=== PATIENT | female | born 1975 | race Caucasian/White ===

== ENCOUNTER 2016-08-24 11:45 | Emergency (ER) | payer OTHER ==
[2016-08-24] MEDS ORDERED: Fluticasone NASAL SPRAY 50MCG* 16 gm SPRAY BTL BOTH NARES ONE (12:11)
--- NOTE | 2016-08-24 12:27 | ED ---
Throat Pain/Nasal Congestion - HPI Summary HPI Summary: 41F presents with intermittent red, itchy eyes for a week. She states sometimes she feels like there is a grain of sand in her eyes. She states she has a history of allergic rhinitis. She states she has these symptoms every year in the spring. She does not wear contacts. She denies getting anything in his eye. She admits to sinus congestion. She took Benadryl twice over the past week. She denies any change in vision or vision loss. - History of Current Complaint Chief Complaint: EDGeneral Time Seen by Provider: 08/24/16 11:59 - Allergies/Home Medications Allergies/Adverse Reactions: Allergies Allergy/AdvReac Type Severity Reaction Status Date / Time No Known Allergies Allergy Verified 03/13/15 11:08 PMH/Surg Hx/FS Hx/Imm Hx Endocrine/Hematology History: Denies: Hx Anticoagulant Therapy, Hx Blood Disorders, Hx Diabetes, Hx Thyroid Disease, Hx Anemia, Hx Unexplained Bleeding Cardiovascular History: Reports: Other Cardiovascular Problems/Disorders - tachycardia Denies: Hx Aneurysm, Hx Angina, Hx Angioplasty, Hx Auto Implanted Cardiovert Defib, Hx Cardiac Arrest, Hx Cardiomegaly, Hx Congenital Heart Disease, Hx Congestive Heart Failure, Hx Coronary Artery Disease, Hx Deep Vein Thrombosis, Hx Embolism, Hx Hypercholesterolemia, Hx Hypotension, Hx Hypertension, Hx Pacemaker/ICD, Hx Peripheral Vascular Disease, Hx Rheumatic Fever, Hx Syncope, Hx Valvular Heart Disease Respiratory History: Reports: Hx Chronic Bronchitis, Hx Pneumonia Denies: Hx Asthma, Hx Pulmonary Edema, Hx Pulmonary Embolism, Hx Sleep Apnea GI History: Denies: Hx Cirrhosis, Hx Crohn's Disease, Hx Gastroesophageal Reflux Disease , Hx Gastrointestinal Bleed, Hx Hiatal Hernia, Hx Irritable Bowel, Hx Jaundice, Hx Ileostomy, Hx Pyloric Stenosis, Hx Ulcer, Other GI Disorders History: Denies: Hx Acute Renal Failure, Hx Benign Prostatic Hyperplasia, Hx Chronic Renal Failure, Hx Dialysis, Hx Kidney Infection, Hx Kidney Stones, Other Problems/Disorders Musculoskeletal History: Reports: Hx Gout Denies: Hx Arthritis, Hx Bursitis, Hx Tendonitis, Other Musculoskeletal History Sensory History: Denies: Hx Cataracts, Hx Contacts or Glasses, Hx Eye Injury, Hx Eye Prosthesis, Hx Glaucoma, Hx Legally Blind, Hx Macular Degeneration, Hx Vision Problem, Hx Deafness, Hx Hearing Aid, Hx Hearing Problem, Other Sensory Impairments Opthamlomology History: Denies: Hx Cataracts, Hx Contacts or Glasses, Hx Eye Injury, Hx Eye Prosthesis, Hx Glaucoma, Hx Legally Blind, Hx Macular Degeneration, Hx Vision Problem, Other Sensory Impairments Neurological History: Denies: Hx Dementia, Hx Developmental Delay, Hx Headaches, Hx Migraine, Hx Nerve Disease, Hx Seizures, Hx Spinal Cord Injury, Hx Transient Ischemic Attacks (TIA), Other Neuro Impairments/Disorders Psychiatric History: Reports: Hx Anxiety Denies: Hx Attention Deficit Hyperactivity Disorder, Hx Eating Disorder, Hx Depression, Hx Panic Disorder, Hx Post Traumatic Stress Disorder, Hx Inpatient Treatment, Hx Community Mental Health Tx, Hx Schizophrenia, Hx Bipolar Disorder , Hx Suicide Attempt, Hx of Violent Episodes Against Others, Hx Substance Abuse - Cancer History Hx Chemotherapy: No - Surgical History Surgery Procedure, Year, and Place: CHOLECYSTECTOMY MAR 2015 Hx Anesthesia Reactions: No Infectious Disease History: Denies: Hx Hepatitis, Traveled Outside the [place] in Last 30 Days - Family History Known Family History: Positive: Other - Anesthesia reaction - Social History Alcohol Use: None Substance Use Type: Reports: None Smoking Status (MU): Never Smoked Tobacco Review of Systems Negative: Fever Positive: Erythema Positive: Nasal Discharge. Negative: Sore Throat Negative: Chest Pain Negative: Shortness Of Breath All Other Systems Reviewed And Are Negative: Yes Physical Exam Triage Information Reviewed: Yes Vital Signs On Initial Exam: Initial Vitals Temp Pulse Resp BP Pulse Ox 97.4 F 84 16 152/90 99 08/24/16 11:47 08/24/16 11:47 08/24/16 11:47 08/24/16 11:47 08/24/16 11:47 Vital Signs Reviewed: Yes Appearance: Positive: Well-Appearing Skin: Positive: Warm, Dry Head/Face: Positive: Normal Head/Face Inspection Eyes: Positive: EOMI, BASSAM, Conjunctiva Inflammed, Other: - allergic shiners present under eyes. Negative: Discharge ENT: Positive: Normal ENT inspection, Pharynx normal, Nasal congestion, Nasal drainage, TMs normal Respiratory/Lung Sounds: Positive: Clear to Auscultation, Breath Sounds Present Cardiovascular: Positive: Normal, RRR Diagnostics - Vital Signs Vital Signs Temp Pulse Resp BP Pulse Ox 08/24/16 11:55 97.4 F 84 16 152/90 99 08/24/16 11:47 97.4 F 84 16 152/90 99 - Laboratory Lab Statement: Any lab studies that have been ordered have been reviewed, and results considered in the medical decision making process. EENT Course/Dx - Course Course Of Treatment: 41F presents with intermittent red, watery, itchy eyes that gets every year around this time due to allergies. also admits to nasal congestion. denies any foreign body or trauma. denies any visual changes, no one else similiar symptoms. states only water discharge no yellow or copious discharge. due not suspect bacterial conjunctivits given history. did not do flourescien due to no trauma to area. will treat as allergy, gave flonase and script for lastacaft. told to follow up with primary. patient understands and agrees with plan - Differential Diagnoses Differential Diagnoses: Allergic Rhinitis, Conjunctivitis, Corneal Abrasion - Diagnoses Provider Diagnoses: Allergic conjunctivitis of both eyes Discharge - Discharge Plan Condition: Good Disposition: HOME Prescriptions: Alcaftadine 0.25% OPHTH(NF) [Lastacaft 0.25% OPHTH(NF)] 1 drop BOTH EYES DAILY # 1 [email or web address] Patient Education Materials: Allergic Rhinitis (ED) Referrals: Yoandy Aquino MD [Primary Care Provider] - Additional Instructions: Take antihistamine once a day Take Flonase one spray each nostril twice a day Place antihistamine drops in eye once a day Follow up with primary within 7 days Return to ED if develop any new or worsening symptoms
[2016-08-24 13:01] VITALS: BP 151/99
== END 2016-08-24 12:57 | disposition home or self-care (01) ==
LOC: ED 11:45
DX: H10.13 Acute atopic conjunctivitis, bilateral (principal); L53.9 Erythematous condition, unspecified
CPT/HCPCS: 87070; 87205; 99282

== ENCOUNTER 2016-09-26 16:40 | Emergency (ER) | payer OTHER ==
[2016-09-26 16:43] VITALS: BP 154/93
--- NOTE | 2016-09-26 17:20 | ED ---
Throat Pain/Nasal Congestion - HPI Summary HPI Summary: 41F presents with ear pain, sore throat, and sinus congestion for day. She denies any cough, chest pain, SOB, and fever. Her daughter has an cold too. She states she feels a lot of pressure in her ears with the left worst than right. She denies any history of ear infections. She has been taking OTC cold medication. - History of Current Complaint Chief Complaint: EDThroatPain Time Seen by Provider: 09/26/16 16:49 - Allergies/Home Medications Allergies/Adverse Reactions: Allergies Allergy/AdvReac Type Severity Reaction Status Date / Time No Known Allergies Allergy Verified 03/13/15 11:08 PMH/Surg Hx/FS Hx/Imm Hx Endocrine/Hematology History: Denies: Hx Anticoagulant Therapy, Hx Blood Disorders, Hx Diabetes, Hx Thyroid Disease, Hx Anemia, Hx Unexplained Bleeding Cardiovascular History: Reports: Other Cardiovascular Problems/Disorders - tachycardia Denies: Hx Aneurysm, Hx Angina, Hx Angioplasty, Hx Auto Implanted Cardiovert Defib, Hx Cardiac Arrest, Hx Cardiomegaly, Hx Congenital Heart Disease, Hx Congestive Heart Failure, Hx Coronary Artery Disease, Hx Deep Vein Thrombosis, Hx Embolism, Hx Hypercholesterolemia, Hx Hypotension, Hx Hypertension, Hx Pacemaker/ICD, Hx Peripheral Vascular Disease, Hx Rheumatic Fever, Hx Syncope, Hx Valvular Heart Disease Respiratory History: Reports: Hx Chronic Bronchitis, Hx Pneumonia Denies: Hx Asthma, Hx Pulmonary Edema, Hx Pulmonary Embolism, Hx Sleep Apnea GI History: Denies: Hx Cirrhosis, Hx Crohn's Disease, Hx Gastroesophageal Reflux Disease , Hx Gastrointestinal Bleed, Hx Hiatal Hernia, Hx Irritable Bowel, Hx Jaundice, Hx Ileostomy, Hx Pyloric Stenosis, Hx Ulcer, Other GI Disorders History: Denies: Hx Acute Renal Failure, Hx Benign Prostatic Hyperplasia, Hx Chronic Renal Failure, Hx Dialysis, Hx Kidney Infection, Hx Kidney Stones, Other Problems/Disorders Musculoskeletal History: Reports: Hx Gout Denies: Hx Arthritis, Hx Bursitis, Hx Tendonitis, Other Musculoskeletal History Sensory History: Denies: Hx Cataracts, Hx Contacts or Glasses, Hx Eye Injury, Hx Eye Prosthesis, Hx Glaucoma, Hx Legally Blind, Hx Macular Degeneration, Hx Vision Problem, Hx Deafness, Hx Hearing Aid, Hx Hearing Problem, Other Sensory Impairments Opthamlomology History: Denies: Hx Cataracts, Hx Contacts or Glasses, Hx Eye Injury, Hx Eye Prosthesis, Hx Glaucoma, Hx Legally Blind, Hx Macular Degeneration, Hx Vision Problem, Other Sensory Impairments Neurological History: Denies: Hx Dementia, Hx Developmental Delay, Hx Headaches, Hx Migraine, Hx Nerve Disease, Hx Seizures, Hx Spinal Cord Injury, Hx Transient Ischemic Attacks (TIA), Other Neuro Impairments/Disorders Psychiatric History: Reports: Hx Anxiety Denies: Hx Attention Deficit Hyperactivity Disorder, Hx Eating Disorder, Hx Depression, Hx Panic Disorder, Hx Post Traumatic Stress Disorder, Hx Inpatient Treatment, Hx Community Mental Health Tx, Hx Schizophrenia, Hx Bipolar Disorder , Hx Suicide Attempt, Hx of Violent Episodes Against Others, Hx Substance Abuse - Cancer History Hx Chemotherapy: No - Surgical History Surgery Procedure, Year, and Place: CHOLECYSTECTOMY MAR 2015 Hx Anesthesia Reactions: No Infectious Disease History: No Infectious Disease History: Denies: Hx Hepatitis, Traveled Outside the [place] in Last 30 Days - Family History Known Family History: Positive: Other - Anesthesia reaction - Social History Alcohol Use: None Substance Use Type: Reports: None Smoking Status (MU): Never Smoked Tobacco Review of Systems Negative: Fever Positive: Sore Throat, Ear Ache, Nasal Discharge Negative: Chest Pain Negative: Shortness Of Breath All Other Systems Reviewed And Are Negative: Yes Physical Exam Triage Information Reviewed: Yes Vital Signs On Initial Exam: Initial Vitals Temp Pulse Resp BP Pulse Ox 98.2 F 93 17 154/93 99 09/26/16 16:41 09/26/16 16:41 09/26/16 16:41 09/26/16 16:41 09/26/16 16:41 Vital Signs Reviewed: Yes Appearance: Positive: Well-Appearing Skin: Positive: Warm, Dry Head/Face: Positive: Normal Head/Face Inspection Eyes: Positive: Normal, EOMI, BASSAM, Conjunctiva Clear ENT: Positive: Normal ENT inspection, Pharynx normal, Nasal congestion, Nasal drainage, TM dull - with fluid behind. Negative: TM bulging, TM red, Tonsillar swelling, Tonsillar exudate, Trismus, Muffled/hoarse voice Neck: Positive: Supple, Nontender, No Lymphadenopathy Respiratory/Lung Sounds: Positive: Clear to Auscultation, Breath Sounds Present Cardiovascular: Positive: Normal, RRR Diagnostics - Vital Signs Vital Signs Temp Pulse Resp BP Pulse Ox 09/26/16 16:41 98.2 F 93 17 154/93 99 - Laboratory Lab Statement: Any lab studies that have been ordered have been reviewed, and results considered in the medical decision making process. EENT Course/Dx - Course Course Of Treatment: 41F presents with sore throat, ear pain, and sinus congestion for a day. daughter had similiar symptoms. denies any fever. on exam no exudate or swelling of tonsils so Centor criteria 1 due to no cough so need to swap. ears dull TM due to serous fluid likely from sinus congestion but no sign of infection. will treat with flonase. patient understands and agrees with plan - Differential Diagnoses Differential Diagnoses: Otitis Externa, Otitis Media, Pharyngitis, URI/ Bronchitis - Diagnoses Provider Diagnoses: Upper respiratory infection Discharge - Discharge Plan Condition: Good Disposition: HOME Prescriptions: Fluticasone NASAL * [Flonase *] 1 spray BOTH NARES DAILY #1 bottle Ibuprofen TAB* [Motrin TAB* 600 MG] 600 mg PO Q6H PRN #20 tab PRN Reason: Pain Magic Mouth Was-DO/MAAL/LIDO* 5 ml SWISH SPIT QID #100 ml Patient Education Materials: Upper Respiratory Infection (ED) Referrals: Yoandy Aquino MD [Primary Care Provider] - Additional Instructions: Magic mouthwash can use 4x a day Can gargle salt water Can use cough drops or products such as cloraseptic spray Use intranasal steroid one spray each nostril twice a day Use saline in the nose for nasal congestion, can also get Sudafed at pharmacy counter for nasal congestion Use humidifier or place warm bowls of water around the room for cough Take Tylenol or ibuprofen for pain every 6 hours Return to ED if develop any new or worsening symptoms
== END 2016-09-26 17:31 | disposition home or self-care (01) ==
LOC: ED 16:40
DX: J06.9 Acute upper respiratory infection, unspecified (principal); H92.09 Otalgia, unspecified ear; J02.9 Acute pharyngitis, unspecified
CPT/HCPCS: 99281

== ENCOUNTER → 2016-10-12 09:33 | Emergency (ER) | payer OTHER ==
[~2016-10-12 09:33] MED LIST: Ibuprofen TAB* 600 MG ONE; Ibuprofen TAB* 600 MG PO ONE
[2016-10-12 10:00] VITALS: BP 155/100
--- NOTE | 2016-10-12 12:36 | ED ---
Throat Pain/Nasal Congestion - HPI Summary HPI Summary: 41 female presents with complaints of b/l ear pain that she states radiates into her throat and mouth that has been ongoing for weeks. Patient also states she does not know if she has a dental infection which may be causing her pain. She denies any recent dental trauma or procedure. She states the pain is in both of her ears. Describes as achey and pressure, "like they have to po"p. She denies any hearing loss. States she was seen at primary care previously for similar symptoms however has not taken any medication for this. Has been using q -tips and putting hydrogen peroxide into ears. Denies fever/chills, cough, sore throat, nausea and vomiting. Does admits to nasal congestion. States she thinks an anitbiotic would make her feel mayra.r - History of Current Complaint Chief Complaint: EDEarPain Time Seen by Provider: 10/12/16 11:50 Hx Obtained From: Patient Onset/Duration: Sudden Onset, Lasting Weeks, Still Present Severity: Moderate Associated Signs And Symptoms: Positive: Nasal Discharge Cough: None - Allergies/Home Medications Allergies/Adverse Reactions: Allergies Allergy/AdvReac Type Severity Reaction Status Date / Time No Known Allergies Allergy Verified 03/13/15 11:08 PMH/Surg Hx/FS Hx/Imm Hx Endocrine/Hematology History: Denies: Hx Anticoagulant Therapy, Hx Blood Disorders, Hx Diabetes, Hx Thyroid Disease, Hx Anemia, Hx Unexplained Bleeding Cardiovascular History: Reports: Other Cardiovascular Problems/Disorders - tachycardia Denies: Hx Aneurysm, Hx Angina, Hx Angioplasty, Hx Auto Implanted Cardiovert Defib, Hx Cardiac Arrest, Hx Cardiomegaly, Hx Congenital Heart Disease, Hx Congestive Heart Failure, Hx Coronary Artery Disease, Hx Deep Vein Thrombosis, Hx Embolism, Hx Hypercholesterolemia, Hx Hypotension, Hx Hypertension, Hx Pacemaker/ICD, Hx Peripheral Vascular Disease, Hx Rheumatic Fever, Hx Syncope, Hx Valvular Heart Disease Respiratory History: Reports: Hx Chronic Bronchitis, Hx Pneumonia Denies: Hx Asthma, Hx Pulmonary Edema, Hx Pulmonary Embolism, Hx Sleep Apnea GI History: Denies: Hx Cirrhosis, Hx Crohn's Disease, Hx Gastroesophageal Reflux Disease , Hx Gastrointestinal Bleed, Hx Hiatal Hernia, Hx Irritable Bowel, Hx Jaundice, Hx Ileostomy, Hx Pyloric Stenosis, Hx Ulcer, Other GI Disorders History: Denies: Hx Acute Renal Failure, Hx Benign Prostatic Hyperplasia, Hx Chronic Renal Failure, Hx Dialysis, Hx Kidney Infection, Hx Kidney Stones, Other Problems/Disorders Musculoskeletal History: Reports: Hx Gout Denies: Hx Arthritis, Hx Bursitis, Hx Tendonitis, Other Musculoskeletal History Sensory History: Denies: Hx Cataracts, Hx Contacts or Glasses, Hx Eye Injury, Hx Eye Prosthesis, Hx Glaucoma, Hx Legally Blind, Hx Macular Degeneration, Hx Vision Problem, Hx Deafness, Hx Hearing Aid, Hx Hearing Problem, Other Sensory Impairments Opthamlomology History: Denies: Hx Cataracts, Hx Contacts or Glasses, Hx Eye Injury, Hx Eye Prosthesis, Hx Glaucoma, Hx Legally Blind, Hx Macular Degeneration, Hx Vision Problem, Other Sensory Impairments Neurological History: Denies: Hx Dementia, Hx Developmental Delay, Hx Headaches, Hx Migraine, Hx Nerve Disease, Hx Seizures, Hx Spinal Cord Injury, Hx Transient Ischemic Attacks (TIA), Other Neuro Impairments/Disorders Psychiatric History: Reports: Hx Anxiety Denies: Hx Attention Deficit Hyperactivity Disorder, Hx Eating Disorder, Hx Depression, Hx Panic Disorder, Hx Post Traumatic Stress Disorder, Hx Inpatient Treatment, Hx Community Mental Health Tx, Hx Schizophrenia, Hx Bipolar Disorder , Hx Suicide Attempt, Hx of Violent Episodes Against Others, Hx Substance Abuse - Cancer History Hx Chemotherapy: No - Surgical History Surgery Procedure, Year, and Place: CHOLECYSTECTOMY MAR 2015 Hx Anesthesia Reactions: No - Immunization History Immunizations Up to Date: Yes Infectious Disease History: Denies: Hx Hepatitis, Traveled Outside the [place] in Last 30 Days - Family History Known Family History: Positive: None, Other - Anesthesia reaction - Social History Alcohol Use: None Substance Use Type: Reports: None Smoking Status (MU): Never Smoked Tobacco Review of Systems Constitutional: Negative Eyes: Negative Positive: Dental Pain, Ear Ache, Nasal Discharge Cardiovascular: Negative Respiratory: Negative Gastrointestinal: Negative Musculoskeletal: Negative Skin: Negative Positive: Headache All Other Systems Reviewed And Are Negative: Yes Physical Exam Triage Information Reviewed: Yes Vital Signs On Initial Exam: Initial Vitals Temp Pulse Resp BP Pulse Ox 98.1 F 89 16 155/100 97 10/12/16 09:57 10/12/16 09:57 10/12/16 09:57 10/12/16 09:57 10/12/16 09:57 patient declined to have BP re-checked. does have HTN, asymptomatic. Vital Signs Reviewed: Yes Appearance: Positive: Well-Appearing - laying on stretcher watching tv in NAD, No Pain Distress, Well-Nourished Skin: Positive: Warm, Skin Color Reflects Adequate Perfusion, Dry Head/Face: Positive: Normal Head/Face Inspection. Negative: Temporal Artery Tenderness, TMJ Tenderness Eyes: Positive: Normal, EOMI, BASSAM, Conjunctiva Clear ENT: Positive: Normal ENT inspection, Hearing grossly normal, Pharynx normal, Nasal congestion, TMs normal - some serous effusion of right ear. Right external auditory canal vesicle noted. EAC b/l otherwise normal, Other - no signs of FB or cerumen impactions in ears b/l. no mastoid tenderness. Negative : Pharyngeal erythema, Nasal drainage, Tonsillar swelling, Tonsillar exudate, Trismus, Muffled/hoarse voice Dental: Positive: Gross Decay/Caries @. Negative: Percussion Tenderness @, Dental Fracture @, Abscess @, Cellulitis @, Cervical Lymphadenopathy Neck: Positive: Supple, Nontender, No Lymphadenopathy Respiratory/Lung Sounds: Positive: Clear to Auscultation, Breath Sounds Present , Decreased Breath Sounds. Negative: Rales, Rhonchi, Stridor, Wheezes Cardiovascular: Positive: Normal, RRR, Pulses are Symmetrical in both Upper and Lower Extremities. Negative: Murmur, Rub Abdomen Description: Positive: Nontender, No Organomegaly, Soft Bowel Sounds: Positive: Present Musculoskeletal: Positive: Normal, Strength/ROM Intact. Negative: Pain @ Neurological: Positive: Normal, Sensory/Motor Intact, Alert, Oriented to Person Place, Time Psychiatric: Positive: Normal, Affect/Mood Appropriate AVPU Assessment: Alert Diagnostics - Vital Signs Vital Signs Temp Pulse Resp BP Pulse Ox 10/12/16 09:57 98.1 F 89 16 155/100 97 - Laboratory Lab Statement: Any lab studies that have been ordered have been reviewed, and results considered in the medical decision making process. EENT Course/Dx - Course Course Of Treatment: due to complaint of symptoms patient will be treated for seasonal allergies and serous effusion of ears. no physical exam findings for bacterial infection, unremarkable. antibiotics would not beneficial at this time. will be given xyzal and told to use flonase and saline rinses. fluids and hot showers. follow up pcp. educated on proper use of q-tips and refrain from hydrogen peroxide in ears - Differential Diagnoses Differential Diagnoses: Allergic Rhinitis, Cerumen Impaction, Dental Abscess, Dental Caries, Mastoiditis, Otitis Externa, Otitis Media, Pharyngitis, Sinusitis , Tonsilitis, URI/Bronchitis - Diagnoses Provider Diagnoses: Seasonal allergies, Chronic otitis media with serous effusion Discharge - Discharge Plan Condition: Stable Disposition: HOME Prescriptions: Levocetirizine Dihydrochloride [Xyzal Allergy 24Hr] 5 mg PO DAILY #30 tab Patient Education Materials: Serous Otitis Media (ED), Allergies (GEN) Referrals: Yoandy Aquino MD [Primary Care Provider] - Additional Instructions: Take Xyzal daily as directed. Recommend taking at bedtime due to making you drowsy. Start using your flonase as directed to help with congestion. Continue ibuprofen for pain and inflammation. Fluids and rest. Stop putting hydrogen peroixde and q-tips into ear canal. If symptoms worsen or do not improve in the next 14 days please seek medical attention. Follow up with PCP.
== END | disposition home or self-care (01) ==
LOC: ED 09:33
DX: H65.20 Chronic serous otitis media, unspecified ear (principal); J30.2 Other seasonal allergic rhinitis
CPT/HCPCS: 99282; A9270-GY

== ENCOUNTER 2016-11-03 18:34 | Emergency (ER) | payer OTHER ==
[2016-11-03 20:25] VITALS: BP 149/115
[2016-11-03] MEDS ORDERED: Ciproflox/Dexameth OTIC.SUSP* 7.5 ML BTL RIGHT EAR SCH (21:00)
--- NOTE | 2016-11-03 22:09 | ED ---
Throat Pain/Nasal Congestion - HPI Summary HPI Summary: Patient presents with one day of cough and congestion, with a sore throat. She has had ear pressure for two weeks that has been evaluated with negative findings. She denies fever, chills, LOUIS, neck pain, or runny nose. No SOB or CP. - History of Current Complaint Chief Complaint: EDGeneral Time Seen by Provider: 11/03/16 18:46 Hx Obtained From: Patient Onset/Duration: Gradual Onset Severity: Mild Associated Signs And Symptoms: Positive: Negative Cough: None - Allergies/Home Medications Allergies/Adverse Reactions: Allergies Allergy/AdvReac Type Severity Reaction Status Date / Time No Known Allergies Allergy Verified 03/13/15 11:08 PMH/Surg Hx/FS Hx/Imm Hx Endocrine/Hematology History: Denies: Hx Anticoagulant Therapy, Hx Blood Disorders, Hx Diabetes, Hx Thyroid Disease, Hx Anemia, Hx Unexplained Bleeding Cardiovascular History: Reports: Other Cardiovascular Problems/Disorders - tachycardia Denies: Hx Aneurysm, Hx Angina, Hx Angioplasty, Hx Auto Implanted Cardiovert Defib, Hx Cardiac Arrest, Hx Cardiomegaly, Hx Congenital Heart Disease, Hx Congestive Heart Failure, Hx Coronary Artery Disease, Hx Deep Vein Thrombosis, Hx Embolism, Hx Hypercholesterolemia, Hx Hypotension, Hx Hypertension, Hx Pacemaker/ICD, Hx Peripheral Vascular Disease, Hx Rheumatic Fever, Hx Syncope, Hx Valvular Heart Disease Respiratory History: Reports: Hx Chronic Bronchitis, Hx Pneumonia Denies: Hx Asthma, Hx Pulmonary Edema, Hx Pulmonary Embolism, Hx Sleep Apnea GI History: Denies: Hx Cirrhosis, Hx Crohn's Disease, Hx Gastroesophageal Reflux Disease , Hx Gastrointestinal Bleed, Hx Hiatal Hernia, Hx Irritable Bowel, Hx Jaundice, Hx Ileostomy, Hx Pyloric Stenosis, Hx Ulcer, Other GI Disorders History: Denies: Hx Acute Renal Failure, Hx Benign Prostatic Hyperplasia, Hx Chronic Renal Failure, Hx Dialysis, Hx Kidney Infection, Hx Kidney Stones, Other Problems/Disorders Musculoskeletal History: Reports: Hx Gout Denies: Hx Arthritis, Hx Bursitis, Hx Tendonitis, Other Musculoskeletal History Sensory History: Denies: Hx Cataracts, Hx Contacts or Glasses, Hx Eye Injury, Hx Eye Prosthesis, Hx Glaucoma, Hx Legally Blind, Hx Macular Degeneration, Hx Vision Problem, Hx Deafness, Hx Hearing Aid, Hx Hearing Problem, Other Sensory Impairments Opthamlomology History: Denies: Hx Cataracts, Hx Contacts or Glasses, Hx Eye Injury, Hx Eye Prosthesis, Hx Glaucoma, Hx Legally Blind, Hx Macular Degeneration, Hx Vision Problem, Other Sensory Impairments Neurological History: Denies: Hx Dementia, Hx Developmental Delay, Hx Headaches, Hx Migraine, Hx Nerve Disease, Hx Seizures, Hx Spinal Cord Injury, Hx Transient Ischemic Attacks (TIA), Other Neuro Impairments/Disorders Psychiatric History: Reports: Hx Anxiety Denies: Hx Attention Deficit Hyperactivity Disorder, Hx Eating Disorder, Hx Depression, Hx Panic Disorder, Hx Post Traumatic Stress Disorder, Hx Inpatient Treatment, Hx Community Mental Health Tx, Hx Schizophrenia, Hx Bipolar Disorder , Hx Suicide Attempt, Hx of Violent Episodes Against Others, Hx Substance Abuse - Cancer History Hx Chemotherapy: No - Surgical History Surgery Procedure, Year, and Place: CHOLECYSTECTOMY MAR 2015 Hx Anesthesia Reactions: No Infectious Disease History: Denies: Hx Hepatitis, Traveled Outside the [place] in Last 30 Days - Family History Known Family History: Positive: None, Other - Anesthesia reaction - Social History Occupation: Unemployed Lives: With Family Alcohol Use: None Substance Use Type: Reports: None Smoking Status (MU): Never Smoked Tobacco Review of Systems Negative: Fever, Chills Positive: Sore Throat, Ear Ache Negative: Chest Pain Positive: Cough. Negative: Shortness Of Breath Negative: Abdominal Pain Negative: Myalgia Negative: Headache All Other Systems Reviewed And Are Negative: Yes Physical Exam Triage Information Reviewed: Yes Vital Signs On Initial Exam: Initial Vitals Temp Pulse Resp BP Pulse Ox 97.0 F 106 20 133/98 97 11/03/16 18:41 11/03/16 18:41 11/03/16 18:41 11/03/16 18:41 11/03/16 18:41 Vital Signs Reviewed: Yes Appearance: Positive: Well-Appearing, No Pain Distress, Obese Skin: Positive: Warm, Skin Color Reflects Adequate Perfusion, Dry, Soft Head/Face: Positive: Normal Head/Face Inspection Eyes: Positive: EOMI, BASSAM, Conjunctiva Clear ENT: Positive: Hearing grossly normal, Pharyngeal erythema, TMs normal - right aural canal erythema. Negative: Tonsillar swelling, Tonsillar exudate, Trismus , Muffled/hoarse voice Neck: Positive: Supple, Nontender, No Lymphadenopathy Respiratory/Lung Sounds: Positive: Clear to Auscultation, Breath Sounds Present Cardiovascular: Positive: RRR Musculoskeletal: Negative: Edema Left, Edema Right Neurological: Positive: Sensory/Motor Intact, Alert, Oriented to Person Place, Time, NV Bundle Intact Distally, Normal Gait Psychiatric: Positive: Affect/Mood Appropriate AVPU Assessment: Alert Diagnostics - Vital Signs Vital Signs Temp Pulse Resp BP Pulse Ox 11/03/16 20:24 98.8 F 103 149/115 11/03/16 18:43 97.0 F 106 20 133/98 100 11/03/16 18:41 97.0 F 106 20 133/98 97 - Laboratory Lab Results: Lab Results 11/03/16 Range/Units 18:34 Group A Strep Rapid Negative (Negative) Lab Statement: Any lab studies that have been ordered have been reviewed, and results considered in the medical decision making process. EENT Course/Dx - Differential Diagnoses Differential Diagnoses: Abrasion, Barotrauma, Foreign Body, Otitis Externa, Otitis Media, Perforated TM, Pharyngitis - Diagnoses Provider Diagnoses: Otitis externa Discharge - Discharge Plan Condition: Stable Disposition: HOME Patient Education Materials: Otitis Externa (ED) Referrals: Yoandy Aquino MD [Primary Care Provider] - Additional Instructions: Please use the drops provided for the next 8 days. Follow up with your primary care provider if symptoms persist.
== END 2016-11-03 20:24 | disposition home or self-care (01) ==
LOC: ED 18:34
DX: H60.90 Unspecified otitis externa, unspecified ear (principal); R06.02 Shortness of breath; H92.09 Otalgia, unspecified ear
CPT/HCPCS: 87651; 99282; A9270-GY

== ENCOUNTER 2016-11-15 14:47 | Emergency (ER) | payer OTHER ==
[2016-11-15 14:56] VITALS: BP 145/110
--- NOTE | 2016-11-15 16:24 | RAD ---
HISTORY: Right knee pain, trauma COMPARISONS: March 09, 2016 VIEWS: 4, Frontal, lateral, axial, and oblique views of the right knee FINDINGS: BONE DENSITY: Normal. BONES: There is no displaced fracture. JOINTS: There is mild tricompartmental osteoarthritis. There is a small suprapatellar joint effusion. There is no arthrosis. ALIGNMENT: There is no dislocation. SOFT TISSUES: Unremarkable. OTHER FINDINGS: None. IMPRESSION: MILD OSTEOARTHRITIS WITH A SMALL JOINT EFFUSION. NO ACUTE OSSEOUS INJURY. IF SYMPTOMS PERSIST, RECOMMEND REPEAT IMAGING
--- NOTE | 2016-11-15 16:50 | ED ---
Lower Extremity - HPI Summary HPI Summary: Patient presents to ED with right knee pain /10 and does not radiate after tripping on a step and "twisting" the knee 2 days ago. She is ambulating but with pain. Worsening pain on the lateral side of the right knee without numbness, tingling, temperature or color changes to the area. Denies other injuries or previous injury to the area. She notes to laxity through the joint. Small amount of swelling over the lateral side of the right knee. - History of Current Complaint Chief Complaint: EDExtremityLower Stated Complaint: RT KNEE PAIN Time Seen by Provider: 11/15/16 15:23 Hx Obtained From: Patient Mechanism Of Injury: Direct Blow Onset of Pain: Days Onset/Duration: Hours Severity Initially: Severe Severity Currently: Severe Pain Intensity: 10 Pain Scale Used: 0-10 Numeric Timing: Constant Location: Is Discrete @ - right lateral side of the knee Character Of Pain: Aching, Throbbing Associated Signs And Symptoms: Positive: Knee Pain Aggravating Factor(s): Standing, Ambulation, Movement, Weight Bearing, Stairs Alleviating Factor(s): Rest Able to Bear Weight: Yes - Risk Factors Gout Risk Factors: Negative DVT Risk Factors: Negative Septic Arthritis Risk Factor: Negative - Allergies/Home Medications Allergies/Adverse Reactions: Allergies Allergy/AdvReac Type Severity Reaction Status Date / Time No Known Allergies Allergy Verified 03/13/15 11:08 PMH/Surg Hx/FS Hx/Imm Hx Previously Healthy: Yes Endocrine/Hematology History: Denies: Hx Anticoagulant Therapy, Hx Blood Disorders, Hx Diabetes, Hx Thyroid Disease, Hx Anemia, Hx Unexplained Bleeding Cardiovascular History: Reports: Other Cardiovascular Problems/Disorders - tachycardia Denies: Hx Aneurysm, Hx Angina, Hx Angioplasty, Hx Auto Implanted Cardiovert Defib, Hx Cardiac Arrest, Hx Cardiomegaly, Hx Congenital Heart Disease, Hx Congestive Heart Failure, Hx Coronary Artery Disease, Hx Deep Vein Thrombosis, Hx Embolism, Hx Hypercholesterolemia, Hx Hypotension, Hx Hypertension, Hx Pacemaker/ICD, Hx Peripheral Vascular Disease, Hx Rheumatic Fever, Hx Syncope, Hx Valvular Heart Disease Respiratory History: Reports: Hx Chronic Bronchitis, Hx Pneumonia Denies: Hx Asthma, Hx Pulmonary Edema, Hx Pulmonary Embolism, Hx Sleep Apnea GI History: Denies: Hx Cirrhosis, Hx Crohn's Disease, Hx Gastroesophageal Reflux Disease , Hx Gastrointestinal Bleed, Hx Hiatal Hernia, Hx Irritable Bowel, Hx Jaundice, Hx Ileostomy, Hx Pyloric Stenosis, Hx Ulcer, Other GI Disorders History: Denies: Hx Acute Renal Failure, Hx Benign Prostatic Hyperplasia, Hx Chronic Renal Failure, Hx Dialysis, Hx Kidney Infection, Hx Kidney Stones, Other Problems/Disorders Musculoskeletal History: Reports: Hx Gout Denies: Hx Arthritis, Hx Bursitis, Hx Tendonitis, Other Musculoskeletal History Sensory History: Denies: Hx Cataracts, Hx Contacts or Glasses, Hx Eye Injury, Hx Eye Prosthesis, Hx Glaucoma, Hx Legally Blind, Hx Macular Degeneration, Hx Vision Problem, Hx Deafness, Hx Hearing Aid, Hx Hearing Problem, Other Sensory Impairments Opthamlomology History: Denies: Hx Cataracts, Hx Contacts or Glasses, Hx Eye Injury, Hx Eye Prosthesis, Hx Glaucoma, Hx Legally Blind, Hx Macular Degeneration, Hx Vision Problem, Other Sensory Impairments Neurological History: Denies: Hx Dementia, Hx Developmental Delay, Hx Headaches, Hx Migraine, Hx Nerve Disease, Hx Seizures, Hx Spinal Cord Injury, Hx Transient Ischemic Attacks (TIA), Other Neuro Impairments/Disorders Psychiatric History: Reports: Hx Anxiety Denies: Hx Attention Deficit Hyperactivity Disorder, Hx Eating Disorder, Hx Depression, Hx Panic Disorder, Hx Post Traumatic Stress Disorder, Hx Inpatient Treatment, Hx Community Mental Health Tx, Hx Schizophrenia, Hx Bipolar Disorder , Hx Suicide Attempt, Hx of Violent Episodes Against Others, Hx Substance Abuse - Cancer History Hx Chemotherapy: No - Surgical History Surgery Procedure, Year, and Place: CHOLECYSTECTOMY MAR 2015 Hx Anesthesia Reactions: No - Immunization History Hx Pertussis Vaccination: No Immunizations Up to Date: Unable to Obtain/Confirm Infectious Disease History: No Infectious Disease History: Denies: Hx Hepatitis, Traveled Outside the [place] in Last 30 Days - Family History Known Family History: Positive: None, Other - Anesthesia reaction - Social History Occupation: Unemployed Lives: With Family Alcohol Use: None Hx Substance Use: No Substance Use Type: Reports: None Hx Tobacco Use: No Smoking Status (MU): Never Smoked Tobacco Review of Systems Constitutional: Negative Eyes: Negative Cardiovascular: Negative Respiratory: Negative Positive: no symptoms reported, see HPI Positive: Arthralgia, Myalgia Skin: Negative Neurological: Negative All Other Systems Reviewed And Are Negative: Yes Physical Exam Triage Information Reviewed: Yes Vital Signs On Initial Exam: Initial Vitals Temp Pulse Resp BP Pulse Ox 97.3 F 99 19 145/110 96 11/15/16 14:53 11/15/16 14:53 11/15/16 14:53 11/15/16 14:53 11/15/16 14:53 Vital Signs Reviewed: Yes Appearance: Positive: Well-Appearing, Well-Nourished Skin: Positive: Warm, Skin Color Reflects Adequate Perfusion Head/Face: Positive: Normal Head/Face Inspection Neck: Positive: Supple, No Lymphadenopathy Respiratory/Lung Sounds: Positive: Clear to Auscultation, Breath Sounds Present Cardiovascular: Positive: Normal, RRR, Pulses are Symmetrical in both Upper and Lower Extremities Neurological: Positive: Sensory/Motor Intact, Alert, Oriented to Person Place, Time, Speech Normal Psychiatric: Positive: Normal AVPU Assessment: Alert - Redmon Coma Scale Best Eye Response: 4 - Spontaneous Best Motor Response: 6 - Obeys Commands Best Verbal Response: 5 - Oriented Diagnostics - Vital Signs Vital Signs Temp Pulse Resp BP Pulse Ox 11/15/16 14:56 97.3 F 99 19 145/110 96 11/15/16 14:53 97.3 F 99 19 145/110 96 - Laboratory Lab Statement: Any lab studies that have been ordered have been reviewed, and results considered in the medical decision making process. Lower Extremity Course/Dx - Course Course Of Treatment: Patient sent to imaging. Xray negative for fracture or other acute findings. Soft tissue swelling noted over the knee. Knee was andressa wrapped to patient comfort to allow for immobilization for this period of time. Crutches given. Patient given orthopedic follow up in 5-7 days. Encouraged Ibuprofen 600mg three times daily with meals for pain. Return precautions given. Educated patient regarding ankle injuries and healing time and the possibility of further evaluation and imaging as orthopedist sees fit. xray negative for fx. will refer to dr. villanueva for further evaluation. - Diagnoses Differential Diagnosis/HQI/PQRI: Positive: Contusion, Fracture (Closed), Fracture (Open), Sprain, Strain Provider Diagnoses: Knee pain Discharge - Discharge Plan Condition: Stable Disposition: HOME Patient Education Materials: Knee Pain (ED) Referrals: Yoandy Aquino MD [Primary Care Provider] - Anna Villanueva MD [Medical Doctor] - Additional Instructions: Dx. Knee pain Continue with andressa wrap for stability and support Ibuprofen 600mg three times daily with meals for discomfort. Return to ED if symptoms worsen or fail to improve, notice worsening swelling, warmth or redness around the joint, develop fever, or pain is uncontrolled with OTC medications. Moist heat to the area for comfort. Warm showers or baths may improve symptoms. It is important to remain mobile as tolerated to prevent stiffening of the joints and delay healing. Follow up with your PCP. If symptoms remain for > 6 weeks, please seek special medical attention from an orthopedic physician.
== END 2016-11-15 17:10 | disposition home or self-care (01) ==
LOC: ED 14:47
DX: M25.561 Pain in right knee (principal); W22.8XXA Striking against or struck by other objects, initial encounter; Y92.9 Unspecified place or not applicable
CPT/HCPCS: 99281

== ENCOUNTER 2016-12-28 20:25 | Emergency (ER) | payer OTHER ==
[2016-12-28] MEDS ORDERED: Loperamide CAP* 2 MG PO ONE (23:57)
[2016-12-28] MEDS ORDERED: Cephalexin CAP* 500 MG PO ONE (23:58)
--- NOTE | 2016-12-29 01:16 | ED ---
I, Oh,Soohforeign, scribed for Andrew Franz MD on 12/28/16 at 2357 . Abdominal Pain/Female - HPI Summary HPI Summary: This 41 y/o female presents to ED for acute epigastric abd pain since 0100 AM last night. Positive n/v x3 and copious diarrhea since time of onset. Negative fever or chills. She was able to tolerate some crackers today. Pt reports consuming grilled vegetables yesterday's evening at a [employer]. Pt also expresses concern over possible "bug bite" at left axillary. - History of Current Complaint Chief Complaint: EDAbdPain Stated Complaint: ABD PAIN/V/D BUG BITE Time Seen by Provider: 12/28/16 23:45 Hx Obtained From: Patient, Medical Records Onset/Duration: Sudden Onset Pain Intensity: 8 Pain Scale Used: 0-10 Numeric Location: Epigastric Radiates: No Character: Dull Aggravating Factor(s): Nothing Alleviating Factor(s): Nothing Associated Signs and Symptoms: Positive: Nausea, Vomiting, Diarrhea. Negative: Fever Allergies/Adverse Reactions: Allergies Allergy/AdvReac Type Severity Reaction Status Date / Time No Known Allergies Allergy Verified 03/13/15 11:08 PMH/Surg Hx/FS Hx/Imm Hx Endocrine/Hematology History: Denies: Hx Anticoagulant Therapy, Hx Blood Disorders, Hx Diabetes, Hx Thyroid Disease, Hx Anemia, Hx Unexplained Bleeding Cardiovascular History: Reports: Other Cardiovascular Problems/Disorders - tachycardia Denies: Hx Aneurysm, Hx Angina, Hx Angioplasty, Hx Auto Implanted Cardiovert Defib, Hx Cardiac Arrest, Hx Cardiomegaly, Hx Congenital Heart Disease, Hx Congestive Heart Failure, Hx Coronary Artery Disease, Hx Deep Vein Thrombosis, Hx Embolism, Hx Hypercholesterolemia, Hx Hypotension, Hx Hypertension, Hx Pacemaker/ICD, Hx Peripheral Vascular Disease, Hx Rheumatic Fever, Hx Syncope, Hx Valvular Heart Disease Respiratory History: Reports: Hx Chronic Bronchitis, Hx Pneumonia Denies: Hx Asthma, Hx Pulmonary Edema, Hx Pulmonary Embolism, Hx Sleep Apnea GI History: Denies: Hx Cirrhosis, Hx Crohn's Disease, Hx Gastroesophageal Reflux Disease , Hx Gastrointestinal Bleed, Hx Hiatal Hernia, Hx Irritable Bowel, Hx Jaundice, Hx Ileostomy, Hx Pyloric Stenosis, Hx Ulcer, Other GI Disorders History: Denies: Hx Acute Renal Failure, Hx Benign Prostatic Hyperplasia, Hx Chronic Renal Failure, Hx Dialysis, Hx Kidney Infection, Hx Kidney Stones, Other Problems/Disorders Musculoskeletal History: Reports: Hx Gout Denies: Hx Arthritis, Hx Bursitis, Hx Tendonitis, Other Musculoskeletal History Sensory History: Denies: Hx Cataracts, Hx Contacts or Glasses, Hx Eye Injury, Hx Eye Prosthesis, Hx Glaucoma, Hx Legally Blind, Hx Macular Degeneration, Hx Vision Problem, Hx Deafness, Hx Hearing Aid, Hx Hearing Problem, Other Sensory Impairments Opthamlomology History: Denies: Hx Cataracts, Hx Contacts or Glasses, Hx Eye Injury, Hx Eye Prosthesis, Hx Glaucoma, Hx Legally Blind, Hx Macular Degeneration, Hx Vision Problem, Other Sensory Impairments Neurological History: Denies: Hx Dementia, Hx Developmental Delay, Hx Headaches, Hx Migraine, Hx Nerve Disease, Hx Seizures, Hx Spinal Cord Injury, Hx Transient Ischemic Attacks (TIA), Other Neuro Impairments/Disorders Psychiatric History: Reports: Hx Anxiety Denies: Hx Attention Deficit Hyperactivity Disorder, Hx Eating Disorder, Hx Depression, Hx Panic Disorder, Hx Post Traumatic Stress Disorder, Hx Inpatient Treatment, Hx Community Mental Health Tx, Hx Schizophrenia, Hx Bipolar Disorder , Hx Suicide Attempt, Hx of Violent Episodes Against Others, Hx Substance Abuse - Cancer History Hx Chemotherapy: No - Surgical History Surgery Procedure, Year, and Place: CHOLECYSTECTOMY MAR 2015 Hx Anesthesia Reactions: No Infectious Disease History: No Infectious Disease History: Denies: Hx Hepatitis, Traveled Outside the [place] in Last 30 Days - Family History Known Family History: Positive: Other - Positive for adverse anesthesia reaction - Social History Alcohol Use: None Hx Substance Use: No Substance Use Type: Reports: None Hx Tobacco Use: No Smoking Status (MU): Never Smoked Tobacco Review of Systems Negative: Fever Positive: Abdominal Pain, Vomiting, Diarrhea, Nausea All Other Systems Reviewed And Are Negative: Yes Physical Exam - Summary Physical Exam Summary: The patient is well-nourished in no acute distress and in no acute pain. The skin is warm and dry and skin color reflects adequate perfusion. A small vesicle at left upper arm proximal to left axillary that appears to be folliculitis. Negative drainage. Negative fluctuance. Small area of erythema around it. HEENT: The head is normocephalic and atraumatic. The pupils are equal and reactive. The conjunctivae are clear and without drainage. Nares are patent and without drainage. Mouth reveals moist mucous membranes and the throat is without erythema and exudate. The external ears are intact. The ear canals are patent and without drainage. The tympanic membranes are intact. Neck is supple with full range of motion and non-tender. There are no carotid bruits. There is no neck vein distension. Respiratory: Chest is non-tender. Lungs are clear to auscultation and breath sounds are symmetrical and equal. Cardiovascular: Hear is regular rate and rhythm. There is no murmur or rub auscultated. There is no peripheral edema and pulses are symmetrical and equal. Abdomen: The abdomen is soft and non-tender. There are normal bowel sounds heard in all four quadrants and there is no organomegaly palpated. Musculoskeletal: There is no back pain noted. Extremities are non-tender with full range of motion. There is good capillary refill. There is no peripheral edema or calf tenderness elicited. Neurological: Patient is alert and oriented to person, place and time. The patient has symmetrical motor strength in all four extremities. Cranial nerves are grossly intact. Deep tendon reflexes are symmetrical and equal in all four extremities. Psychiatric: The patient has an appropriate affect and does not exhibit any anxiety or depression. Triage Information Reviewed: Yes Vital Signs On Initial Exam: Initial Vitals Temp Pulse Resp BP Pulse Ox 98.0 F 90 18 140/75 98 12/28/16 20:41 12/28/16 20:41 12/28/16 20:41 12/28/16 20:41 12/28/16 20:41 Vital Signs Reviewed: Yes Diagnostics - Vital Signs Vital Signs Temp Pulse Resp BP Pulse Ox 12/28/16 20:41 98.0 F 90 18 140/75 98 - Laboratory Lab Statement: Any lab studies that have been ordered have been reviewed, and results considered in the medical decision making process. Abdominal Pain Fem Course/Dx - Course Course Of Treatment: Pt is empirically treated with immodium and keflex during ED stay. Symptoms improved during ED course. Pt requests to go home, and she is discharged with outpatient f/u and rx for immodium and keflex. - Diagnoses Differential Diagnosis: Positive: Other - gastroenteritis, folliculitis left arm Provider Diagnoses: Acute diarrhea, Folliculitis Discharge - Discharge Plan Condition: Stable Disposition: HOME Prescriptions: Cephalexin CAP* [Keflex CAP*] 500 mg PO QID #28 cap Loperamide HCl [Imodium A-D] 4 mg PO QID #20 cap Patient Education Materials: Cephalexin (By mouth), Loperamide (By mouth), Acute Diarrhea (ED), Folliculitis (ED) Referrals: Yoandy Aquino MD [Primary Care Provider] - 2 Days The documentation as recorded by the Fernando grande Soohyun accurately reflects the service I personally performed and the decisions made by me, Andrew Franz MD.
[2016-12-29 01:34] VITALS: BP 142/95
== END 2016-12-29 01:34 | disposition home or self-care (01) ==
LOC: ED 20:25
DX: R11.2 Nausea with vomiting, unspecified (principal); R19.7 Diarrhea, unspecified; R10.13 Epigastric pain; Z86.79 Personal history of other diseases of the circulatory system; L73.9 Follicular disorder, unspecified
CPT/HCPCS: 99282; A9270-GY

== ENCOUNTER 2017-01-13 09:28 | Emergency (ER) | payer OTHER ==
[2017-01-13] MEDS ORDERED: Pantoprazole IV* 40 MG IV ONE (11:29)
[2017-01-13] MEDS ORDERED: NS 0.9% 1000 ML* 2,000 ML IV ONE (11:29)
[2017-01-13] MEDS ORDERED: Ketorolac INJ* 30 MG/ML 1 ML VIAL IV ONE (11:29)
[2017-01-13] MEDS ORDERED: Ondansetron INJ* 2 MG/ML VIAL IV ONE (11:29)
[2017-01-13 11:53] LABS: Hematocrit 41 % (35-47); Hemoglobin 13.7 g/dl (12.0-16.0); Mean Corpuscular HGB Conc 34 g/dl (31-36); Mean Corpuscular Hemoglobin 30 pg (27-31); Mean Corpuscular Volume 88 fL (80-97); Mean Platelet Volume 8 um3 (7.4-10.4); Red Blood Count 4.61 10^6/ul (4.0-5.4); Red Cell Distribution Width 14 % (10.5-15); White Blood Count 9.5 10^3/ul (3.5-10.8)
[2017-01-13 12:07] LABS: ALT 21 U/L (7-52); AST 21 U/L (13-39); Alkaline Phosphatase 69 U/L (34-104); Anion Gap 7 mmol/L (2-11); BUN/Creatinine Ratio 17.6 (8-20); Blood Urea Nitrogen 9 mg/dL (6-24); C Reactive Protein 4.12 mg/L (< 5.00); CO2 Carbon Dioxide 24 mmol/L (22-32); Calcium 9.1 mg/dL (8.6-10.3); Chloride 104 mmol/L (101-111); EGFR African American 170.1 (>60); EGFR Non-African American 132.2 (>60); Globulin 2.9 g/dL (2-4); Glucose 115 mg/dL (70-100); Lipase 18 U/L (11.0-82.0); Potassium 3.8 mmol/L (3.5-5.0); Sodium 135 mmol/L (133-145); Total Protein 6.9 g/dL (6.4-8.9)
[2017-01-13] MEDS ORDERED: Iohexol 300* (CONTRAST) 10 ML SDV IV ONE (12:37)
--- NOTE | 2017-01-13 14:23 | RAD ---
INDICATION: Upper middle abdominal pain, nausea. Pain worse when laying down. Post cholecystectomy. COMPARISON: No relevant prior exams available on the [facility] for comparison. TECHNIQUE: Multidetector CT images were obtained from the lung bases to the ischial tuberosities with 133 mL Omnipaque 300 IV and oral contrast. Multiplanar reformation. REPORT: Unremarkable visualized inferior thorax. Decreased density of the liver consistent with fatty infiltration with focal sparing at the eliu hepatis. No suspicious focal hepatic lesions. Post cholecystectomy. Negative for biliary dilatation. Unremarkable pancreas and spleen. Significant circumferential edematous thickening of the gastric antrum mucosa. Unremarkable duodenum as well as the jejunum and ileum small bowel loops. Normal appendix visualized medial to the cecum. Enteric contrast extends to the rectum. No CT abnormality of the colon. Negative for ascites or free air. Small fat-containing umbilical hernia without inflammatory change. Normal adrenal glands. Symmetric nephrograms and pyelograms. Negative for focal renal lesions or hydronephrosis. Unremarkable ureters and partially distended urinary bladder. Prominent uterus with heterogeneous density. 2.4 cm myometrial fibroid at the RIGHT anterior uterine body. Unremarkable adnexal regions. Negative for lymphadenopathy. Normal diameter abdominal aorta and iliac arteries. Normal variant retroaortic LEFT renal vein. Congenital L3-L4 fusion. Reactive endplate sclerosis secondary to degenerative spondylosis at L5-S1. Multilevel facet joint osteoarthritis. No suspicious focal osseous lesions. IMPRESSION: 1. Fatty infiltration of the liver. 2. Significant circumferential edematous thickening of the gastric antrum mucosal. The primary consideration is gastritis symptoms. Correlate with clinical assessment and consider endoscopy for confirmation and tissue sampling for histopathologic assessment. 3. Negative for ascites. 4. Negative for lymphadenopathy.
[2017-01-13 14:32] VITALS: BP 163/104
--- NOTE | 2017-01-13 14:48 | ED ---
Harmeet Rogers Benjamin, scribed for Kalyan Hudson MD on 01/13/17 at 1131 . Abdominal Pain/Female - HPI Summary HPI Summary: 41yo female c/o intermittent right rib pain since yesterday. Pt describes the pain as contraction like pain that that gets as intense as 8-9/10 pain. Pt has hx of cholecystectomy 2 years ago and pt states having similar pain as her prior kari. Denies fever/chills, or any blood in bowel. LMP was 1 week ago, with no abnormal vaginal discharge. - History of Current Complaint Chief Complaint: EDAbdPain Stated Complaint: ABD PAIN Time Seen by Provider: 01/13/17 11:13 Hx Obtained From: Patient Onset/Duration: Sudden Onset, Lasting Days - 1 day, Still Present Timing: Intermittent Episode Lasting Severity Initially: Moderate Severity Currently: Moderate Pain Intensity: 7 Pain Scale Used: 0-10 Numeric Location: Discrete At: RUQ Radiates: No Character: Other: - contraction like Aggravating Factor(s): Nothing Alleviating Factor(s): Nothing Associated Signs and Symptoms: Positive: Nausea, Vomiting Allergies/Adverse Reactions: Allergies Allergy/AdvReac Type Severity Reaction Status Date / Time No Known Allergies Allergy Verified 03/13/15 11:08 PMH/Surg Hx/FS Hx/Imm Hx Endocrine/Hematology History: Denies: Hx Anticoagulant Therapy, Hx Blood Disorders, Hx Diabetes, Hx Thyroid Disease, Hx Anemia, Hx Unexplained Bleeding Cardiovascular History: Reports: Other Cardiovascular Problems/Disorders - tachycardia Denies: Hx Aneurysm, Hx Angina, Hx Angioplasty, Hx Auto Implanted Cardiovert Defib, Hx Cardiac Arrest, Hx Cardiomegaly, Hx Congenital Heart Disease, Hx Congestive Heart Failure, Hx Coronary Artery Disease, Hx Deep Vein Thrombosis, Hx Embolism, Hx Hypercholesterolemia, Hx Hypotension, Hx Hypertension, Hx Pacemaker/ICD, Hx Peripheral Vascular Disease, Hx Rheumatic Fever, Hx Syncope, Hx Valvular Heart Disease Respiratory History: Reports: Hx Chronic Bronchitis, Hx Pneumonia Denies: Hx Asthma, Hx Pulmonary Edema, Hx Pulmonary Embolism, Hx Sleep Apnea GI History: Denies: Hx Cirrhosis, Hx Crohn's Disease, Hx Gastroesophageal Reflux Disease , Hx Gastrointestinal Bleed, Hx Hiatal Hernia, Hx Irritable Bowel, Hx Jaundice, Hx Ileostomy, Hx Pyloric Stenosis, Hx Ulcer, Other GI Disorders History: Denies: Hx Acute Renal Failure, Hx Benign Prostatic Hyperplasia, Hx Chronic Renal Failure, Hx Dialysis, Hx Kidney Infection, Hx Kidney Stones, Other Problems/Disorders Musculoskeletal History: Reports: Hx Gout Denies: Hx Arthritis, Hx Bursitis, Hx Tendonitis, Other Musculoskeletal History Sensory History: Denies: Hx Cataracts, Hx Contacts or Glasses, Hx Eye Injury, Hx Eye Prosthesis, Hx Glaucoma, Hx Legally Blind, Hx Macular Degeneration, Hx Vision Problem, Hx Deafness, Hx Hearing Aid, Hx Hearing Problem, Other Sensory Impairments Opthamlomology History: Denies: Hx Cataracts, Hx Contacts or Glasses, Hx Eye Injury, Hx Eye Prosthesis, Hx Glaucoma, Hx Legally Blind, Hx Macular Degeneration, Hx Vision Problem, Other Sensory Impairments Neurological History: Denies: Hx Dementia, Hx Developmental Delay, Hx Headaches, Hx Migraine, Hx Nerve Disease, Hx Seizures, Hx Spinal Cord Injury, Hx Transient Ischemic Attacks (TIA), Other Neuro Impairments/Disorders Psychiatric History: Reports: Hx Anxiety Denies: Hx Attention Deficit Hyperactivity Disorder, Hx Eating Disorder, Hx Depression, Hx Panic Disorder, Hx Post Traumatic Stress Disorder, Hx Inpatient Treatment, Hx Community Mental Health Tx, Hx Schizophrenia, Hx Bipolar Disorder , Hx Suicide Attempt, Hx of Violent Episodes Against Others, Hx Substance Abuse - Cancer History Hx Chemotherapy: No - Surgical History Surgery Procedure, Year, and Place: CHOLECYSTECTOMY MAR 2015 Hx Anesthesia Reactions: No Infectious Disease History: No Infectious Disease History: Denies: Hx Hepatitis, Traveled Outside the [place] in Last 30 Days - Family History Known Family History: Positive: Other - Positive for adverse anesthesia reaction - Social History Occupation: Unemployed Lives: Alone Alcohol Use: None Hx Substance Use: No Substance Use Type: Reports: None Hx Tobacco Use: No Smoking Status (MU): Never Smoked Tobacco Review of Systems Constitutional: Negative Negative: Fever, Chills Eyes: Negative ENT: Negative Cardiovascular: Negative Negative: Palpitations, Chest Pain Negative: Shortness Of Breath, Cough Positive: Abdominal Pain - RUQ pain, Vomiting, Nausea. Negative: Diarrhea Genitourinary: Negative Musculoskeletal: Negative Skin: Negative Neurological: Negative Psychological: Normal All Other Systems Reviewed And Are Negative: Yes Physical Exam Triage Information Reviewed: Yes Vital Signs On Initial Exam: Initial Vitals Temp Pulse Resp BP Pulse Ox 97.7 F 86 20 134/92 98 01/13/17 09:31 01/13/17 09:31 01/13/17 09:31 01/13/17 09:31 01/13/17 09:31 Vital Signs Reviewed: Yes Appearance: Positive: Well-Appearing, Pain Distress - moderate, Obese Skin: Positive: Warm, Skin Color Reflects Adequate Perfusion, Dry Head/Face: Positive: Normal Head/Face Inspection Eyes: Positive: Normal ENT: Positive: Normal ENT inspection, Hearing grossly normal Neck: Positive: Supple, Nontender Respiratory/Lung Sounds: Positive: Clear to Auscultation, Breath Sounds Present Cardiovascular: Positive: RRR, Pulses are Symmetrical in both Upper and Lower Extremities Abdomen Description: Positive: Soft, Other: - epigastric tenderness Bowel Sounds: Positive: Present Musculoskeletal: Positive: Normal, Strength/ROM Intact Neurological: Positive: Normal, Sensory/Motor Intact, Alert, Oriented to Person Place, Time Psychiatric: Positive: Anxious - Wilbur Coma Scale Coma Scale Total: 15 Diagnostics - Vital Signs Vital Signs Temp Pulse Resp BP Pulse Ox 01/13/17 11:15 98.2 F 91 20 143/98 97 01/13/17 11:14 143/98 01/13/17 09:31 97.7 F 86 20 134/92 98 - Laboratory Lab Results: Lab Results 01/13/17 01/13/17 01/13/17 Range/Units 11:35 11:35 11:35 WBC 9.5 (3.5-10.8) 10^3/ul RBC 4.61 (4.0-5.4) 10^6/ul Hgb 13.7 (12.0-16.0) g/dl Hct 41 (35-47) % MCV 88 (80-97) fL MCH 30 (27-31) pg MCHC 34 (31-36) g/dl RDW 14 (10.5-15) % Plt Count 211 (150-450) 10^3/ul MPV 8 (7.4-10.4) um3 Neut % (Auto) 77.6 (38-83) % Lymph % (Auto) 14.1 L (25-47) % [place] % (Auto) 6.9 (1-9) % Eos % (Auto) 1.0 (0-6) % Baso % (Auto) 0.4 (0-2) % Absolute Neuts (auto) 7.3 (1.5-7.7) 10^3/ul Absolute Lymphs (auto) 1.3 (1.0-4.8) 10^3/ul Absolute Monos (auto) 0.6 (0-0.8) 10^3/ul Absolute Eos (auto) 0.1 (0-0.6) 10^3/ul Absolute Basos (auto) 0 (0-0.2) 10^3/ul Absolute Nucleated RBC 0 10^3/ul Nucleated RBC % 0 INR (Anticoag Therapy) 0.94 (0.89-1.11) APTT 29.5 (26.0-36.3) seconds Sodium 135 (133-145) mmol/L Potassium 3.8 (3.5-5.0) mmol/L Chloride 104 (101-111) mmol/L Carbon Dioxide 24 (22-32) mmol/L Anion Gap 7 (2-11) mmol/L BUN 9 (6-24) mg/dL Creatinine 0.51 (0.51-0.95) mg/dL Est GFR ( Amer) 170.1 (>60) Est GFR (Non-Af Amer) 132.2 (>60) BUN/Creatinine Ratio 17.6 (8-20) Glucose 115 H (70-100) mg/dL Calcium 9.1 (8.6-10.3) mg/dL Total Bilirubin 0.50 (0.2-1.0) mg/dL AST 21 (13-39) U/L ALT 21 (7-52) U/L Alkaline Phosphatase 69 (34-104) U/L Troponin I 0.00 (<0.04) ng/mL C-Reactive Protein 4.12 (< 5.00) mg/L Total Protein 6.9 (6.4-8.9) g/dL Albumin 4.0 (3.2-5.2) g/dL Globulin 2.9 (2-4) g/dL Albumin/Globulin Ratio 1.4 (1-3) Lipase 18 (11.0-82.0) U/L Beta HCG, Quant < 0.60 mIU/mL Result Diagrams: 01/13/17 11:35 01/13/17 11:35 Lab Statement: Any lab studies that have been ordered have been reviewed, and results considered in the medical decision making process. - EKG 1140 Cardiac Rate: NL - 88bpm EKG Rhythm: Sinus Rhythm ST Segment: Non-Specific Ectopy: None Re-Evaluation - Re-Evaluation First Eval Re-Evaluation Time: 13:58 Comment: Reviewed pts lab and imaging results with the pt. Abdominal Pain Fem Course/Dx - Course Course Of Treatment: Reviewed pts medication and allergy lists. Blood pressure noted. DISCUSSED RESULTS WITH PATIENT. RX OMEPRAZOLE AND CARAFATE FOR GASTRITIS. F/U PMD; RETURN IF WORSE. THE ABDOMINAL PAIN IS EPIGASTRIC. - Diagnoses Provider Diagnoses: Gastritis, Epigastric abdominal pain, Abdominal pain Discharge - Discharge Plan Condition: Stable Disposition: HOME Prescriptions: Omeprazole CAP* [Prilosec CAP* 20 MG] 20 mg PO BID #30 cap. Sucralfate TAB* [Carafate*] 1 gm PO QID #90 tab Patient Education Materials: Gastritis (ED), Abdominal Pain (ED) Referrals: Yoandy Aquino MD [Primary Care Provider] - Additional Instructions: FOLLOW UP WITH YOUR DOCTOR. RETURN TO THE EMERGENCY DEPARTMENT FOR ANY WORSENING OF YOUR CONDITION; PAIN, FEVER, BLOOD IN YOUR STOOL, VOMITING OR QUESTIONS OR CONCERNS. The documentation as recorded by the Harmeet grande Benjamin accurately reflects the service I personally performed and the decisions made by me, Kalyan Hudson MD.
== END 2017-01-13 15:18 | disposition home or self-care (01) ==
LOC: ED 09:28
DX: K29.70 Gastritis, unspecified, without bleeding (principal); R07.81 Pleurodynia; R10.13 Epigastric pain; R11.2 Nausea with vomiting, unspecified
CPT/HCPCS: 36415; 74177; 80053; 83690; 84484; 84702; 85025; 85610; 85730; 86140; 86703; 93005; 96374; 96375; 99283; Q9967

== ENCOUNTER 2018-01-24 19:17 | Emergency (ER) | payer OTHER ==
[2018-01-24] MEDS ORDERED: Meclizine TAB* 12.5 MG PO ONE (20:52)
[2018-01-24] MEDS ORDERED: diPHENhydraMINE IV* 50 MG/ML 1 ml VIAL (BENADRYL) IV ONE (20:52)
[2018-01-24] MEDS ORDERED: NS 0.9% 1000 ML* 1,000 ML IV ONE (20:52)
[2018-01-24 23:03] LABS: ABS Basophils 0.1 10^3/ul (0-0.2); ABS Eosinophils 0.2 10^3/ul (0-0.6); ABS Lymphocytes 2.1 10^3/ul (1.0-4.8); ABS Monocytes 0.7 10^3/ul (0-0.8); ABS Neutrophils 5.8 10^3/ul (1.5-7.7); ABS Nucleated RBC 0 10^3/ul; Eosinophil % 1.9 % (0-6); Hematocrit 40 % (35-47); Hemoglobin 13.3 g/dl (12.0-16.0); Lymphocyte % 23.9 % (25-47); Mean Corpuscular HGB Conc 34 g/dl (31-36); Mean Corpuscular Hemoglobin 29 pg (27-31); Mean Corpuscular Volume 86 fL (80-97); Mean Platelet Volume 7.9 um3 (7.4-10.4); Nucleated Red Blood Cells % 0.1; Platelet Count 223 10^3/ul (150-450); Red Blood Count 4.63 10^6/ul (4.00-5.40); Red Cell Distribution Width 14 % (10.5-15); White Blood Count 8.8 10^3/ul (3.5-10.8)
[2018-01-24 23:21] LABS: EGFR Non-African American 120.6 (>60)
--- NOTE | 2018-01-25 00:55 | ED ---
Dizziness - HPI Summary HPI Summary: Pt is a 42 y/o female who presents to the ED c/o vertigo. She states she took a nap today at 15:00 and when she woke up the room was suddenly spinning. She also c/o nausea and a mild frontal LOUIS. The vertigo is worse when laying down. She states the nausea feels similar to a migraine. Pt denies any vomiting, pain , or head injury. Pt had a similar episode a few years ago. She had 2 antihistamine tablets [employer] COUN[employer]. LKMP 2 weeks ago. - History Of Current Complaint Chief Complaint: EDDizziness Stated Complaint: DIZZY Time Seen by Provider: 01/25/18 00:43 Hx Obtained From: Patient Onset/Duration: Resolved Timing: Minutes Severity Currently: None Character: Room Spinning Aggravating Factor(s): Position Change - Laying down Alleviating Factor(s): Nothing Associated Signs And Symptoms: Positive: Nausea. Negative: Vomiting - Allergies/Home Medications Allergies/Adverse Reactions: Allergies Allergy/AdvReac Type Severity Reaction Status Date / Time No Known Allergies Allergy Verified 01/24/18 19:27 PMH/Surg Hx/FS Hx/Imm Hx Endocrine/Hematology History: Denies: Hx Anticoagulant Therapy, Hx Blood Disorders, Hx Diabetes, Hx Thyroid Disease, Hx Anemia, Hx Unexplained Bleeding Cardiovascular History: Reports: Other Cardiovascular Problems/Disorders - tachycardia Denies: Hx Aneurysm, Hx Angina, Hx Angioplasty, Hx Auto Implanted Cardiovert Defib, Hx Cardiac Arrest, Hx Cardiomegaly, Hx Congenital Heart Disease, Hx Congestive Heart Failure, Hx Coronary Artery Disease, Hx Deep Vein Thrombosis, Hx Embolism, Hx Hypercholesterolemia, Hx Hypotension, Hx Hypertension, Hx Pacemaker/ICD, Hx Peripheral Vascular Disease, Hx Rheumatic Fever, Hx Syncope, Hx Valvular Heart Disease Respiratory History: Reports: Hx Chronic Bronchitis, Hx Pneumonia Denies: Hx Asthma, Hx Pulmonary Edema, Hx Pulmonary Embolism, Hx Sleep Apnea GI History: Denies: Hx Cirrhosis, Hx Crohn's Disease, Hx Gastroesophageal Reflux Disease , Hx Gastrointestinal Bleed, Hx Hiatal Hernia, Hx Irritable Bowel, Hx Jaundice, Hx Ileostomy, Hx Pyloric Stenosis, Hx Ulcer, Other GI Disorders History: Denies: Hx Acute Renal Failure, Hx Benign Prostatic Hyperplasia, Hx Chronic Renal Failure, Hx Dialysis, Hx Kidney Infection, Hx Kidney Stones, Other Problems/Disorders Musculoskeletal History: Reports: Hx Gout Denies: Hx Arthritis, Hx Bursitis, Hx Tendonitis, Other Musculoskeletal History Sensory History: Denies: Hx Cataracts, Hx Contacts or Glasses, Hx Eye Injury, Hx Eye Prosthesis, Hx Glaucoma, Hx Legally Blind, Hx Macular Degeneration, Hx Vision Problem, Hx Deafness, Hx Hearing Aid, Hx Hearing Problem, Other Sensory Impairments Opthamlomology History: Denies: Hx Cataracts, Hx Contacts or Glasses, Hx Eye Injury, Hx Eye Prosthesis, Hx Glaucoma, Hx Legally Blind, Hx Macular Degeneration, Hx Vision Problem, Other Sensory Impairments Neurological History: Denies: Hx Dementia, Hx Developmental Delay, Hx Headaches, Hx Migraine, Hx Nerve Disease, Hx Seizures, Hx Spinal Cord Injury, Hx Transient Ischemic Attacks (TIA), Other Neuro Impairments/Disorders Psychiatric History: Reports: Hx Anxiety Denies: Hx Attention Deficit Hyperactivity Disorder, Hx Eating Disorder, Hx Depression, Hx Panic Disorder, Hx Post Traumatic Stress Disorder, Hx Inpatient Treatment, Hx Community Mental [facility] Tx, Hx Schizophrenia, Hx Bipolar Disorder , Hx Suicide Attempt, Hx of Violent Episodes Against Others, Hx Substance Abuse - Cancer History Hx Chemotherapy: No - Surgical History Surgery Procedure, Year, and Place: CHOLECYSTECTOMY MAR 2015 Hx Anesthesia Reactions: No Infectious Disease History: No Infectious Disease History: Denies: Hx Hepatitis, Traveled Outside the [place] in Last 30 Days - Family History Known Family History: Positive: Other - Positive for adverse anesthesia reaction - Social History Alcohol Use: None Hx Substance Use: No Substance Use Type: Reports: None Hx Tobacco Use: No Smoking Status (MU): Never Smoked Tobacco Review of Systems Positive: Nausea. Negative: Vomiting Neurological: Other - Room spinning Positive: Headache All Other Systems Reviewed And Are Negative: Yes Physical Exam - Summary Physical Exam Summary: Appearance: Well appearing, no pain distress Skin: warm, dry, reflects adequate perfusion Head/face: normal Eyes: EOMI, BASSAM ENT: normal Neck: supple, non-tender Respiratory: CTA, breath sounds present Cardiovascular: RRR, pulses symmetrical Abdomen: non-tender, soft Bowel Sounds: present Musculoskeletal: normal, strength/ROM intact Neuro: normal, sensory motor intact, A&Ox3, cranial nerves intact, negative Hallpike Triage Information Reviewed: Yes Vital Signs On Initial Exam: Initial Vitals Temp Pulse Resp BP Pulse Ox 98.9 F 102 18 134/105 97 01/24/18 19:23 01/24/18 19:23 09/17/18 19:23 01/24/18 19:23 01/24/18 19:23 Vital Signs Reviewed: Yes Diagnostics - Vital Signs Vital Signs Temp Pulse Resp BP Pulse Ox 01/24/18 23:46 97.9 F 90 20 157/94 98 01/24/18 21:44 98.6 F 87 18 156/87 99 01/24/18 19:23 98.9 F 102 18 134/105 97 - Laboratory Lab Results: Lab Results 01/24/18 01/24/18 Range/Units 22:53 22:53 WBC 8.8 (3.5-10.8) 10^3/ul RBC 4.63 (4.00-5.40) 10^6/ul Hgb 13.3 (12.0-16.0) g/dl Hct 40 (35-47) % MCV 86 (80-97) fL MCH 29 (27-31) pg MCHC 34 (31-36) g/dl RDW 14 (10.5-15) % Plt Count 223 (150-450) 10^3/ul MPV 7.9 (7.4-10.4) um3 Neut % (Auto) 65.2 (38-83) % Lymph % (Auto) 23.9 L (25-47) % [place] % (Auto) 8.1 H (0-7) % Eos % (Auto) 1.9 (0-6) % Baso % (Auto) 0.9 (0-2) % Absolute Neuts (auto) 5.8 (1.5-7.7) 10^3/ul Absolute Lymphs (auto) 2.1 (1.0-4.8) 10^3/ul Absolute Monos (auto) 0.7 (0-0.8) 10^3/ul Absolute Eos (auto) 0.2 (0-0.6) 10^3/ul Absolute Basos (auto) 0.1 (0-0.2) 10^3/ul Absolute Nucleated RBC 0 10^3/ul Nucleated RBC % 0.1 Sodium 137 (135-145) mmol/L Potassium 4.0 (3.5-5.0) mmol/L Chloride 105 (101-111) mmol/L Carbon Dioxide 24 (22-32) mmol/L Anion Gap 8 (2-11) mmol/L BUN 9 (6-24) mg/dL Creatinine 0.55 (0.51-0.95) mg/dL Est GFR ( Amer) 146.0 (>60) Est GFR (Non-Af Amer) 120.6 (>60) BUN/Creatinine Ratio 16.4 (8-20) Glucose 147 H (70-100) mg/dL Calcium 9.3 (8.6-10.3) mg/dL Result Diagrams: 01/24/18 22:53 01/24/18 22:53 Lab Statement: Any lab studies that have been ordered have been reviewed, and results considered in the medical decision making process. Dizzy Course/Dx - Course Course Of Treatment: Patient complains of abrupt onset of rotational dizziness. Patient with complete resolution prior to any treatment here. She has had similar in the past. No nausea, tinnitus or hearing loss at present. Treat symptomatically with meclizine. Follow-up primary care physician. - Diagnoses Differential Diagnosis/HQI/PQRI: Anxiety, Benign Paroxysmal Positional Vertigo, Labyrinthitis, Meniere's Disease, Medication Reaction, Metabolic Abnormality Provider Diagnoses: Positional vertigo Discharge - Sign-Out/Discharge Documenting (check all that apply): Patient Departure - Discharge - Discharge Plan Condition: Improved Disposition: HOME Prescriptions: Meclizine HCl [Motion Sickness II] 25 mg PO Q6H PRN #30 tablet PRN Reason: Dizziness Patient Education Materials: Vertigo (ED) Referrals: Yoandy Aquino MD [Primary Care Provider] - Additional Instructions: Drink plenty of fluids. Benadryl may help. Call your doctor first thing in the morning to schedule follow-up. Return if worse, headaches, numbness/ weakness, new symptoms or other concerns. Use EPLY maneuvers as shown if symptoms return. - Billing Disposition and Condition Condition: IMPROVED Disposition: Home - Attestation Statements Document Initiated by Scribe: Yes Documenting Scribe: Cindy Dunaway Provider For Whom Clarissa is Documenting (Include Credential): Mele Shoemaker MD Scribe Attestation: Cindy Rogers scribed for Mele Shoemaker MD on 01/25/18 at 0700. Scribe Documentation Reviewed: Yes Provider Attestation: The documentation as recorded by the scribe, Cindy Azari accurately reflects the service I personally performed and the decisions made by me, Mele Shoemaker MD
[2018-01-25 01:36] VITALS: BP 168/92
== END 2018-01-25 01:35 | disposition home or self-care (01) ==
LOC: ED 19:17
DX: H81.10 Benign paroxysmal vertigo, unspecified ear (principal)
CPT/HCPCS: 36415; 80048; 85025; 96361; 96374; 99282; A9270-GY

== ENCOUNTER 2018-05-26 14:51 | Emergency (ER) | payer OTHER ==
--- NOTE | 2018-05-26 15:09 | UC ---
Abdominal Pain Female HPI - HPI Summary HPI Summary: 42 yo female presents with RLQ/right pelvic pain since yesterday. Pt tells me that she has a history of uterine fibroids, but has never had pain like this. Her pain was intermittent, but has become more constant. She is taking ibuprofen , but has had no relief. She is sexually active and said that around 05/17 she had a positive at home test. On 05/19 and 05/20 she had heavy menstrual bleeding and was passing clots. Did not have pain at that time. She denies fever , n/v, flank pain, dysuria, vaginal discharge or current bleeding. - History of Current Complaint Chief Complaint: UCAbdominalPain Stated Complaint: ABDOMINAL PAIN Time Seen by Provider: 05/26/18 15:09 Hx Obtained From: Patient Hx Last Menstrual Period: 05/19 Onset/Duration: Sudden Onset Timing: Constant Severity Initially: Severe Severity Currently: Severe Pain Intensity: 8 Pain Scale Used: 0-10 Numeric Allergies/Adverse Reactions: Allergies Allergy/AdvReac Type Severity Reaction Status Date / Time No Known Allergies Allergy Verified 05/26/18 15:07 Home Medications: Home Medications Acetaminophen TAB* [Tylenol TAB*] 975 mg PO Q4H PRN 05/26/18 [History Confirmed 05/26/18] PMH/Surg Hx/FS Hx/Imm Hx - Additional Past Medical History Additional PMH: None Other History Of: Negative For: Anticoagulant Therapy - Surgical History Surgical History: Yes Surgery Procedure, Year, and Place: CHOLECYSTECTOMY MAR 2015 - Family History Known Family History: Positive: Other - Positive for adverse anesthesia reaction - Social History Lives: With Family Alcohol Use: Rare Substance Use Type: None Smoking Status (MU): Never Smoked Tobacco - Immunization History Most Recent Influenza Vaccination: does not recieve Most Recent Tetanus Shot: within last 5yrs Most Recent Pneumonia Vaccination: does not recieve Review of Systems All Other Systems Reviewed And Are Negative: Yes Constitutional: Positive: Negative Skin: Positive: Negative Respiratory: Positive: Negative Cardiovascular: Positive: Negative Gastrointestinal: Positive: Abdominal Pain Genitourinary: Positive: Negative Motor: Positive: Negative Neurovascular: Positive: Negative Neurological: Positive: Negative Psychological: Positive: Negative Physical Exam - Summary Physical Exam Summary: GENERAL: NAD. Obses SKIN: No rashes, sores, lesions, or open wounds. NECK: Supple. Nontender. No lymphadenopathy. CHEST: CTAB. No r/r/w. No accessory muscle use. Breathing comfortably and in no distress. CV: RRR. Without m/r/g. Pulses intact. Cap refill <2seconds ABDOMEN: Right pelvis moderate TTP. Soft. No distention or guarding. No CVA tenderness. Bowel sounds present NEURO: Alert. PSYCH: Age appropriate behavior. Triage Information Reviewed: Yes Vital Signs: Initial Vital Signs Temp 98.8 F 05/26/18 14:57 Pulse 106 05/26/18 14:57 Resp 16 05/26/18 14:57 BP 166/108 05/26/18 14:57 Pulse Ox 99 05/26/18 14:57 Laboratory Tests 05/26/18 05/26/18 15:16 15:17 POC Urine Color Yellow POC Urine Clarity Clear POC Urine pH 7.0 POC Ur Specif [place] 1.015 POC Urine Protein Negative POC Ur Glucose (UA) Negative POC Urine Ketones Negative POC Urine Blood Trace-intact A POC Urine Nitrite Negative POC Urine Bilirubin Negative POC Urine Urobilinogen 0.2 POC U Leukocyte Esteras Negative POC Ur Test Negative Vital Signs Reviewed: Yes Abd Pain Female Course/Dx - Course Course Of Treatment: Discussed with pt my concerns about possible incomplete or other ovarian etiology. [facility] does not currently have ultrasound, therefore I recommended that she be further evaluated in the ED. She was agreeable to this, but declined ambulance transfer. - Differential Dx/Diagnosis Provider Diagnosis: RLQ abdominal pain Discharge - Sign-Out/Discharge Documenting (check all that apply): Patient Departure All imaging exams completed and their final reports reviewed: No Studies - Discharge Plan Condition: Stable Disposition: HOME-RECOMMEND TO ED Referrals: No Primary Care Phys,NOPCP [Primary Care Provider] - Additional Instructions: Please go to the ER for further evaluation of your right pelvic pain - Billing Disposition and Condition Condition: STABLE Disposition: Home-Recommend to ED
[2018-05-26 16:09] VITALS: BP 148/86
== END 2018-05-26 15:42 | disposition home health service (06) ==
LOC: UCEAST 14:51
DX: R10.31 Right lower quadrant pain (principal); Z90.49 Acquired absence of other specified parts of digestive tract
CPT/HCPCS: 81003; 84702; 99212; G0463

== ENCOUNTER 2018-05-26 16:45 | Emergency (ER) | payer OTHER ==
--- NOTE | 2018-05-26 17:53 | ED ---
Abdominal Pain/Female - HPI Summary HPI Summary: Patient is a 42-year-old female who presents emergency department for right sided pelvic pain 2 days. Patient denies associated symptoms of vaginal discharge, bleeding, urinary symptoms, fever, nausea, vomiting, constipation, diarrhea. She denies past medical history other than uterine fibroids. Patient states she did take a home test last week that she believes was positive but then notes she had 2 days heavy bleeding. Patient has never had pain like this before. She took Tylenol with no relief. Symptoms are moderate in severity. No current modifying factors. - History of Current Complaint Chief Complaint: EDAbdPain Stated Complaint: PELVIC PAIN Time Seen by Provider: 05/26/18 17:22 Hx Obtained From: Patient Hx Last Menstrual Period: 05/19 Pain Intensity: 0 Allergies/Adverse Reactions: Allergies Allergy/AdvReac Type Severity Reaction Status Date / Time No Known Allergies Allergy Verified 05/26/18 15:07 Home Medications: Home Medications Vit 93/Iron Fum/Folic [ Formula A-Free] 1 tab PO DAILY [History Confirmed 05/26/18] PMH/Surg Hx/FS Hx/Imm Hx Previously Healthy: Yes Endocrine/Hematology History: Denies: Hx Anticoagulant Therapy, Hx Blood Disorders, Hx Diabetes, Hx Thyroid Disease, Hx Anemia, Hx Unexplained Bleeding Cardiovascular History: Reports: Hx Hypertension, Other Cardiovascular Problems/ Disorders - tachycardia Denies: Hx Aneurysm, Hx Angina, Hx Angioplasty, Hx Auto Implanted Cardiovert Defib, Hx Cardiac Arrest, Hx Cardiomegaly, Hx Congenital Heart Disease, Hx Congestive Heart Failure, Hx Coronary Artery Disease, Hx Deep Vein Thrombosis, Hx Embolism, Hx Hypercholesterolemia, Hx Hypotension, Hx Pacemaker/ICD, Hx Peripheral Vascular Disease, Hx Rheumatic Fever, Hx Syncope, Hx Valvular Heart Disease Respiratory History: Reports: Hx Chronic Bronchitis, Hx Pneumonia Denies: Hx Asthma, Hx Pulmonary Edema, Hx Pulmonary Embolism, Hx Sleep Apnea GI History: Denies: Hx Cirrhosis, Hx Crohn's Disease, Hx Gastroesophageal Reflux Disease , Hx Gastrointestinal Bleed, Hx Hiatal Hernia, Hx Irritable Bowel, Hx Jaundice, Hx Ileostomy, Hx Pyloric Stenosis, Hx Ulcer, Other GI Disorders History: Denies: Hx Acute Renal Failure, Hx Benign Prostatic Hyperplasia, Hx Chronic Renal Failure, Hx Dialysis, Hx Kidney Infection, Hx Kidney Stones, Other Problems/Disorders Musculoskeletal History: Reports: Hx Gout Denies: Hx Arthritis, Hx Bursitis, Hx Tendonitis, Other Musculoskeletal History Sensory History: Denies: Hx Cataracts, Hx Contacts or Glasses, Hx Eye Injury, Hx Eye Prosthesis, Hx Glaucoma, Hx Legally Blind, Hx Macular Degeneration, Hx Vision Problem, Hx Deafness, Hx Hearing Aid, Hx Hearing Problem, Other Sensory Impairments Opthamlomology History: Denies: Hx Cataracts, Hx Contacts or Glasses, Hx Eye Injury, Hx Eye Prosthesis, Hx Glaucoma, Hx Legally Blind, Hx Macular Degeneration, Hx Vision Problem, Other Sensory Impairments Neurological History: Denies: Hx Dementia, Hx Developmental Delay, Hx Headaches, Hx Migraine, Hx Nerve Disease, Hx Seizures, Hx Spinal Cord Injury, Hx Transient Ischemic Attacks (TIA), Other Neuro Impairments/Disorders Psychiatric History: Reports: Hx Anxiety Denies: Hx Attention Deficit Hyperactivity Disorder, Hx Eating Disorder, Hx Depression, Hx Panic Disorder, Hx Post Traumatic Stress Disorder, Hx Inpatient Treatment, Hx Community Mental Health Tx, Hx Schizophrenia, Hx Bipolar Disorder , Hx Suicide Attempt, Hx of Violent Episodes Against Others, Hx Substance Abuse - Cancer History Hx Chemotherapy: No - Surgical History Surgery Procedure, Year, and Place: CHOLECYSTECTOMY MAR 2015 Hx Anesthesia Reactions: No Infectious Disease History: No Infectious Disease History: Denies: Hx Hepatitis, Traveled Outside the [place] in Last 30 Days - Family History Known Family History: Positive: Other - Positive for adverse anesthesia reaction - Social History Occupation: Unemployed Lives: With Family Alcohol Use: Rare Hx Substance Use: No Substance Use Type: Reports: None Hx Tobacco Use: No Smoking Status (MU): Never Smoked Tobacco Review of Systems Constitutional: Negative Negative: Fever, Chills Cardiovascular: Negative Respiratory: Negative Positive: Abdominal Pain. Negative: Vomiting, Diarrhea, Nausea Genitourinary: Negative Neurological: Negative All Other Systems Reviewed And Are Negative: Yes Physical Exam Triage Information Reviewed: Yes Vital Signs On Initial Exam: Initial Vitals Temp Pulse Resp BP Pulse Ox 97.8 F 98 18 185/108 96 05/26/18 16:48 05/26/18 16:48 05/26/18 16:48 05/26/18 16:48 05/26/18 16:48 Vital Signs Reviewed: Yes Appearance: Positive: Well-Appearing - Pt. lying in bed in NAD. Skin: Positive: Warm, Dry Head/Face: Positive: Normal Head/Face Inspection Eyes: Positive: Normal, EOMI Neck: Positive: Supple Respiratory/Lung Sounds: Positive: Clear to Auscultation, Breath Sounds Present Cardiovascular: Positive: Normal Abdomen Description: Positive: Other: - Obese. Abd. is soft with marked tenderness to the right adnex. No rebound tenderness or guarding. No pain at mcburny's point. Musculoskeletal: Positive: Normal, Strength/ROM Intact Neurological: Positive: Normal, CN Intact II-III Psychiatric: Positive: Affect/Mood Appropriate Diagnostics - Vital Signs Vital Signs Temp Pulse Resp BP Pulse Ox 05/26/18 16:48 97.8 F 98 18 185/108 96 - Laboratory Result Diagrams: 05/26/18 17:56 05/26/18 17:56 Lab Statement: Any lab studies that have been ordered have been reviewed, and results considered in the medical decision making process. Abdominal Pain Fem Course/Dx - Course Course Of Treatment: Pt. presenting with right adnexal pain. She is afebrile. BP elevated 185/108. Will check basic labs and pelvic u.s. Naproxen given for pain. Labs and urine unremarkable. Vaginal cultures sent. U/S per virtual radiology: IMPRESSION: 1. Multiple uterine fibroids. 2. Nonvisualization of the right ovary. Pelvic exam relatively unremarkable except significant pain to right adnexa. I did touch base with oncall HAZARDOUS WASTE TECHNICIAN, Dr. Wagner, who has no further recommendations at this time. Results discussed with pt. Pt.'s pain is very low and do not suspect appendicitis and she does not have any other associated sxs. Discussed with pt. if her pain increases, fever, vomiting she will need to come back to ED for further evaluation and likely CT scan. pt. noted to be comfortable in the room and requst gingerale and is eating at time of dc. Naproxen rx for pain. To f.u with her OFFSET PRESS OPERATOR. Pt. understands and agrees with plan. - Diagnoses Differential Diagnosis: Positive: Appendicitis, Bowel Obstruction, Constipation , Diverticulitis, Ectopic , Pelvic Inflammatory Disease, , Urinary Tract Infection Provider Diagnoses: Pelvic pain Discharge - Sign-Out/Discharge Documenting (check all that apply): Patient Departure - Discharge Plan Condition: Good Disposition: HOME Prescriptions: Naproxen [Naproxen 500 mg tab] 500 mg PO BID #20 tablet Patient Education Materials: Pelvic Pain (ED) Referrals: Tyrone Ness MD [Medical Doctor] - Additional Instructions: Call your OFFSET PRESS OPERATOR office tomorrow for a close follow up appointment Naproxen as directed for pain Return to ER for increased pain, fever, vomiting, or if concerned - Billing Disposition and Condition Condition: GOOD Disposition: Home
[2018-05-26] MEDS ORDERED: Naproxen TAB* 250 MG PO ONE (18:05)
[2018-05-26 18:09] LABS: Urine Appearance Cloudy; Urine Bilirubin Negative (Negative); Urine Blood Negative (Negative); Urine Color Yellow; Urine Glucose Negative (Negative); Urine Ketones Negative (Negative); Urine Nitrite Negative (Negative); Urine Protein Negative (Negative); Urine Specific Gravity 1.018 (1.010-1.030); Urine Urobilinogen Negative (Negative)
[2018-05-26 18:18] LABS: Hematocrit 39 % (35-47); Mean Corpuscular HGB Conc 33 g/dl (31-36); Mean Corpuscular Hemoglobin 29 pg (27-31); Mean Corpuscular Volume 86 fL (80-97); Mean Platelet Volume 7.8 fL (7.4-10.4); Platelet Count 203 10^3/ul (150-450); Red Cell Distribution Width 14 % (10.5-15); White Blood Count 8.6 10^3/ul (3.5-10.8)
[2018-05-26 18:22] LABS: ALT 28 U/L (7-52); AST 25 U/L (13-39); Albumin 4.2 g/dL (3.2-5.2); Albumin/Globulin Ratio 1.5 (1-3); Alkaline Phosphatase 72 U/L (34-104); Anion Gap 6 mmol/L (2-11); BUN/Creatinine Ratio 23.2 (8-20); Blood Urea Nitrogen 13 mg/dL (6-24); CO2 Carbon Dioxide 27 mmol/L (22-32); Calcium 9.4 mg/dL (8.6-10.3); Chloride 104 mmol/L (101-111); EGFR Non-African American 118.2 (>60); Globulin 2.8 g/dL (2-4); Glucose 104 mg/dL (70-100); Potassium 3.6 mmol/L (3.5-5.0); Sodium 137 mmol/L (135-145)
[2018-05-26 18:29] LABS: HCG Pregnancy < 0.60 mIU/mL
[2018-05-26 22:07] VITALS: BP 166/108
--- NOTE | 2018-05-28 05:55 | ED ---
Progress - Progress Note Progress Note: Patient's vaginal cultures are positive for Gardnerella, negative for Yoana. She was treated with naproxen at discharge. There was concern for however hCG was < 0.6. Attempted to call pt but line was hyper-busy. E-rx'd flagyl to pharmacy. Will mail letter - eli bonner clerk aware. Course/Dx - Course Course Of Treatment: Pt. presenting with right adnexal pain. She is afebrile. BP elevated 185/108. Will check basic labs and pelvic u.s. Naproxen given for pain. Labs and urine unremarkable. Vaginal cultures sent. U/S per virtual radiology: IMPRESSION: 1. Multiple uterine fibroids. 2. Nonvisualization of the right ovary. Pelvic exam relatively unremarkable except significant pain to right adnexa. I did touch base with oncall BLIND LACER, Dr. Wagner, who has no further recommendations at this time. Results discussed with pt. Pt.'s pain is very low and do not suspect appendicitis and she does not have any other associated sxs. Discussed with pt. if her pain increases, fever, vomiting she will need to come back to ED for further evaluation and likely CT scan. pt. noted to be comfortable in the room and requst gingerale and is eating at time of dc. Naproxen rx for pain. To f.u with her FREELANCE PATTERNMAKER. Pt. understands and agrees with plan. - Diagnoses Provider Diagnoses: Pelvic pain Discharge - Sign-Out/Discharge Documenting (check all that apply): Post-Discharge Follow Up - Discharge Plan Condition: Good Disposition: HOME Prescriptions: metroNIDAZOLE * 500 mg PO BID #14 tablet Naproxen [Naproxen 500 mg tab] 500 mg PO BID #20 tablet Patient Education Materials: Pelvic Pain (ED) Referrals: Tyrone Ness MD [Medical Doctor] - Additional Instructions: Call your FREELANCE PATTERNMAKER office tomorrow for a close follow up appointment Naproxen as directed for pain Return to ER for increased pain, fever, vomiting, or if concerned - Billing Disposition and Condition Condition: GOOD Disposition: Home
== END 2018-05-26 22:05 | disposition home or self-care (01) ==
LOC: ED 16:45
DX: R10.2 Pelvic and perineal pain (principal); D25.9 Leiomyoma of uterus, unspecified; I10 Essential (primary) hypertension
CPT/HCPCS: 36415; 76830; 76856; 80053; 81003; 84702; 85027; 87480; 87491; 87510; 87591; 87661; 99283; A9270-GY

== ENCOUNTER 2018-11-28 22:21 | Emergency (ER) | payer OTHER ==
[2018-11-28] MEDS ORDERED: Ibuprofen TAB* 400 MG PO ONE (23:15)
--- NOTE | 2018-11-28 23:20 | ED ---
Skin Complaint - HPI Summary HPI Summary: The pt is a 43 y/o F presenting to [facility] with a CC of a ganglion cyst on her R middle finger for 1 month. She states that she has a follow up appointment with orthopedics on Wednesday12/05/18 put stated that the pain had increased too much to wait. The pain is rated an 8/10 in severity. She denies any fever, headaches , SOB, CP, N/V/D, and decreased sensations to her fingers. She has no aggravating or alleviating factors. - History of Current Complaint Chief Complaint: EDExtremityUpper Time Seen by Provider: 11/28/18 22:59 Stated Complaint: RIGHT MIDDLE FINGER INJURY PER PT Hx Obtained From: Patient Hx Last Menstrual Period: 05/19 Onset/Duration: Started Weeks Ago - 1 month, Still Present, Worse Since Skin Exposure Onset/Duration: Weeks Ago - 1 month Onset Severity: Moderate Current Severity: Severe Pain Intensity: 8 Pain Scale Used: 0-10 Numeric Skin Location: Discrete - R middle finger dorsum Character: Painful Aggravating Symptom(s): Nothing Alleviating Symptom(s): Nothing Associated Signs & Symptoms: Negative - fever, headaches, SOB, CP, N/V/D, and decreased sensations to her fingers., Joint Swelling - Additional Pertinent History Primary Care Physician: ROSALINDA - Allergy/Home Medications Allergies/Adverse Reactions: Allergies Allergy/AdvReac Type Severity Reaction Status Date / Time No Known Allergies Allergy Verified 11/28/18 22:27 PMH/Surg Hx/FS Hx/Imm Hx Previously Healthy: Yes Endocrine/Hematology History: Denies: Hx Anticoagulant Therapy, Hx Blood Disorders, Hx Diabetes, Hx Thyroid Disease, Hx Anemia, Hx Unexplained Bleeding Cardiovascular History: Reports: Hx Hypertension, Other Cardiovascular Problems/ Disorders - tachycardia Denies: Hx Aneurysm, Hx Angina, Hx Angioplasty, Hx Auto Implanted Cardiovert Defib, Hx Cardiac Arrest, Hx Cardiomegaly, Hx Congenital Heart Disease, Hx Congestive Heart Failure, Hx Coronary Artery Disease, Hx Deep Vein Thrombosis, Hx Embolism, Hx Hypercholesterolemia, Hx Hypotension, Hx Pacemaker/ICD, Hx Peripheral Vascular Disease, Hx Rheumatic Fever, Hx Syncope, Hx Valvular Heart Disease Respiratory History: Reports: Hx Chronic Bronchitis, Hx Pneumonia Denies: Hx Asthma, Hx Pulmonary Edema, Hx Pulmonary Embolism, Hx Sleep Apnea GI History: Denies: Hx Cirrhosis, Hx Crohn's Disease, Hx Gastroesophageal Reflux Disease , Hx Gastrointestinal Bleed, Hx Hiatal Hernia, Hx Irritable Bowel, Hx Jaundice, Hx Ileostomy, Hx Pyloric Stenosis, Hx Ulcer, Other GI Disorders History: Denies: Hx Acute Renal Failure, Hx Benign Prostatic Hyperplasia, Hx Chronic Renal Failure, Hx Dialysis, Hx Kidney Infection, Hx Kidney Stones, Other Problems/Disorders Musculoskeletal History: Reports: Hx Gout Denies: Hx Arthritis, Hx Bursitis, Hx Tendonitis, Other Musculoskeletal History Sensory History: Denies: Hx Cataracts, Hx Contacts or Glasses, Hx Eye Injury, Hx Eye Prosthesis, Hx Glaucoma, Hx Legally Blind, Hx Macular Degeneration, Hx Vision Problem, Hx Deafness, Hx Hearing Aid, Hx Hearing Problem, Other Sensory Impairments Opthamlomology History: Denies: Hx Cataracts, Hx Contacts or Glasses, Hx Eye Injury, Hx Eye Prosthesis, Hx Glaucoma, Hx Legally Blind, Hx Macular Degeneration, Hx Vision Problem, Other Sensory Impairments Neurological History: Denies: Hx Dementia, Hx Developmental Delay, Hx Headaches, Hx Migraine, Hx Nerve Disease, Hx Seizures, Hx Spinal Cord Injury, Hx Transient Ischemic Attacks (TIA), Other Neuro Impairments/Disorders Psychiatric History: Reports: Hx Anxiety Denies: Hx Attention Deficit Hyperactivity Disorder, Hx Eating Disorder, Hx Depression, Hx Panic Disorder, Hx Post Traumatic Stress Disorder, Hx Inpatient Treatment, Hx Community Mental Health Tx, Hx Schizophrenia, Hx Bipolar Disorder , Hx Suicide Attempt, Hx of Violent Episodes Against Others, Hx Substance Abuse - Cancer History Hx Chemotherapy: No - Surgical History Surgery Procedure, Year, and Place: CHOLECYSTECTOMY MAR 2015 Hx Anesthesia Reactions: No Infectious Disease History: No Infectious Disease History: Denies: Hx Hepatitis, Traveled Outside the [place] in Last 30 Days - Family History Known Family History: Positive: Other - Positive for adverse anesthesia reaction - Social History Alcohol Use: Rare Hx Substance Use: No Substance Use Type: Reports: None Hx Tobacco Use: No Smoking Status (MU): Never Smoked Tobacco Review of Systems Negative: Fever Negative: Chest Pain Negative: Shortness Of Breath Negative: Vomiting, Diarrhea, Nausea Negative: Headache, Numbness All Other Systems Reviewed And Are Negative: Yes Physical Exam - Summary Physical Exam Summary: VITAL SIGNS: Reviewed. GENERAL: Patient is a well-developed and nourished female is lying comfortable in the stretcher. Patient is not in any acute respiratory distress. HEAD AND FACE: No signs of trauma. No ecchymosis, hematomas or skull depressions. No sinus tenderness. EYES: PERRLA, EOMI x 2, No injected conjunctiva, no nystagmus. EARS: Hearing grossly intact. Ear canals and tympanic membranes are within normal limits. MOUTH: Oropharynx within normal limits. NECK: Supple, trachea is midline, no adenopathy, no JVD, no carotid bruit, no c- spine tenderness, neck with full ROM CHEST: Symmetric, no tenderness at palpation LUNGS: Clear to auscultation bilaterally. No wheezing or crackles. CVS: Regular rate and rhythm, S1 and S2 present, no murmurs or gallops appreciated. ABDOMEN: Soft, non-tender. No signs of distention. No rebound no guarding, and no masses palpated. Bowel sounds are normal. EXTREMITIES: Swelling of the dorsum of the R middle finger, no infiltrate signs NEURO: Alert and oriented x 3. No acute neurological deficits. Speech is normal and follows commands. SKIN: Dry and warm Triage Information Reviewed: Yes Vital Signs On Initial Exam: Initial Vitals Temp Pulse Resp BP Pulse Ox 97.8 F 94 16 177/88 98 11/28/18 22:24 11/28/18 22:24 11/28/18 22:24 11/28/18 22:24 11/28/18 22:24 Vital Signs Reviewed: Yes Diagnostics - Vital Signs Vital Signs Temp Pulse Resp BP Pulse Ox 11/28/18 22:24 97.8 F 94 16 177/88 98 - Laboratory Result Diagrams: 11/29/18 00:46 11/29/18 00:46 Lab Statement: Any lab studies that have been ordered have been reviewed, and results considered in the medical decision making process. - EKG 0034 Cardiac Rate: NL - 84 BPM EKG Rhythm: Sinus Rhythm ST Segment: Normal Ectopy: None Summary of EKG Findings: Sinus rhythm of 84 BPM with a normal axis, normal interval, no ischemic changes. Interpreted by Dr. Mckeon at 0037 11/29/2018. Re-Evaluation - Re-Evaluation First Eval Re-Evaluation Time: 23:00 Change: Worse Comment: the pt was discharged she began to have a hypertensive episode. Second Eval Re-Evaluation Time: 01:39 Change: Improved Comment: Her blood pressure has stablized and she will be diagnosed with both a ganglion cyst and hypertension and discharged home. Course/Dx - Course Course Of Treatment: The pt is a 43 y/o F presenting to [facility] with a ganglion cyst on her R middle finger. She states that she has a follow up appointment on Wednesday12/05/18 but the pain caused her to come in today. Her PE shows that she has Swelling of the dorsum of the R middle finger, no infiltrate signs. She will be discharged with medications to help with the pain and was instructed to keep her follow up appointment for wednesday12/05/18 for further treatment. As she was being discharged she began to have a hypertensive episode. The episode was not resolved until 0130 on 11/29/18. As a result of her hypertensive episode she received an EKG at 0034 which showed Sinus 84 Normal axis. Normal interval. No ischemic changes. She will now be discharged with both diagnoses of a ganglion cyst and hypertension and instructions to talk about her high blood pressure with her PCP or a physician from [facility]. - Diagnoses Provider Diagnoses: Ganglion cyst, Hypertension Discharge - Sign-Out/Discharge Documenting (check all that apply): Patient Departure - discharge Patient Received Moderate/Deep Sedation with Procedure: No - Discharge Plan Condition: Stable Disposition: HOME Prescriptions: Ibuprofen TAB* [Motrin TAB* 800 MG] 800 mg PO Q6H PRN #30 tab PRN Reason: Pain Lisinopril 10 mg PO DAILY #30 tablet Patient Education Materials: Ganglion Cysts (ED), Hypertension (ED) Referrals: [facility] [Outside] - 2 Days Additional Instructions: Please keep your follow up appointment on Wednesday12/05/18 and take your medications as directed. On discharge you had a hypertensive episode. Please discuss your blood pressure with your primary care physician or follow up with [facility] in 2-3 days to discuss your high blood pressure. - Attestation Statements Document Initiated by Scribe: Yes Documenting Scribe: Robbin Robledo Provider For Whom Scribe is Documenting (Include Credential): Louie Mckeon MD Scribe Attestation: Robbin Rogers, scribed for Louie Mckeon MD on 11/29/18 at 0137. Status of Scribe Document: Ready
[2018-11-29] MEDS ORDERED: Labetalol IV* 5 MG/ML 20 ML VIAL IV PUSH ONE (00:20)
[2018-11-29 01:04] LABS: ABS Basophils 0.1 10^3/ul (0-0.2); ABS Eosinophils 0.1 10^3/ul (0-0.6); ABS Lymphocytes 2.1 10^3/ul (1.0-4.8); ABS Monocytes 0.9 10^3/ul (0-0.8); ABS Neutrophils 6.3 10^3/ul (1.5-7.7); Eosinophil % 1.5 %; Hematocrit 39 % (35-47); Hemoglobin 13.1 g/dL (12.0-16.0); Mean Corpuscular HGB Conc 34 g/dL (31-36); Mean Corpuscular Hemoglobin 29 pg (27-31); Mean Corpuscular Volume 87 fL (80-97); Nucleated Red Blood Cells % 0.1; Platelet Count 207 10^3/uL (150-450); Red Blood Count 4.45 10^6 /uL (3.70-4.87); Red Cell Distribution Width 13 % (10-15); White Blood Count 9.4 10^3/uL (3.5-10.8)
[2018-11-29 01:20] LABS: Albumin 3.9 g/dL (3.2-5.2); Albumin/Globulin Ratio 1.4 (1-3); BUN/Creatinine Ratio 22.6 (8-20); Calcium 9.4 mg/dL (8.6-10.3); EGFR African American 151.6 (>60); EGFR Non-African American 125.3 (>60); Globulin 2.7 g/dL (2-4); Potassium 3.9 mmol/L (3.5-5.0); Total Bilirubin 0.3 mg/dL (0.2-1.0); Total Protein 6.6 g/dL (6.4-8.9)
[2018-11-29 02:09] VITALS: BP 157/108
== END 2018-11-29 02:07 | disposition home or self-care (01) ==
LOC: ED 22:21
DX: M67.48 Ganglion, other site (principal); I10 Essential (primary) hypertension
CPT/HCPCS: 36415; 80053; 85025; 93005; 96374; 99282; A9270-GY

== ENCOUNTER 2018-12-02 10:40 | Emergency (ER) | payer OTHER ==
--- OUTSIDE RECORDS SUMMARY | 2018-12-02 10:54 | XMS REPORT | Continuity of Care Document ---
:1975 External Reference #:[id number] Author Name Vineet Galloway MD Address [address] [address] Care Team Providers Name Role Phone Pat Lundberg N.P. Care Team Information Oral Surgeon Unavailable Payers Date Identification Numbers Payment Provider Subscriber Effective: 2018 Policy Number: [id number] Formerly [facility] [place] PayID: [id number] [address] [address] [place] [address] Problems Active Problems Provider Date Essential hypertension Vineet Galloway MD Onset: 12/01/2018 Neoplasm of uncertain behavior of skin Vineet Galloway MD Onset: 12/01/2018 Family History Date Family Member(s) Observation Comments General Allergies General Asthma General Cancer General Hearing Loss General Heart Disease General Migraine General Vertigo General Breast Cancer General Rectal Cancer General Diabetes Social History Type Date Description Comments Sex Unknown Occupation Unknown Cigarette Use Negative For Current Cigarette Smoker Tobacco Use Start: Unknown Never Smoked Cigars Tobacco Use Start: Unknown Never Smoked A Pipe Smokeless Tobacco Never Used Smokeless Tobacco ETOH Use Currently rarely consumes alcohol Allergies, Adverse Reactions, Alerts Description No Known Drug Allergies Medications Active Medications SIG Qnty Indications Ordering Provider Date Hypertensive Meds Unknown History Medications Vicodin 5-500mg 40tabs Unknown - 2018 Tablets Amoxicillin Capsules Unknown - 2018 Vital Signs Date Vital Result Comment 12/01/2018 2:28pm Weight 244.00 lb Weight 110.678 kg Height 64 inches 5'4" Height in cm's 162.6 cm BMI (Body Mass Index) 41.9 kg/m2 10/28/2007 2:18pm BP Systolic 118 mmHg BP Diastolic 68 mmHg Heart Rate 78 /min Respiratory Rate 16 /min Procedures Date Code Description Status 11/29/2007 85633 No Show Fee Completed Encounters Type Date Location Provider Dx Diagnosis Office Visit 12/01/2018 [facility] Vineet Galloway D48.5 Neoplasm of 2:30p 05/10/07 uncertain behavior of skin Office Visit 10/28/2007 [facility] Vineet Galloway 2:15p 05/10/07 Plan of Treatment Future Appointment(s):12/15/2018 2:15 pm - Vineet Galloway MD at [facility] - Vineet Galloway MDD48.5 Neoplasm of uncertain behavior of skinComments:Patient appears to have a vascular lesion of the ear, on examination today and, my notes from previously this does not appear to have changed significantly. The patient is somewhat worried that this may be something to be concerned about. My suspicion is a very superficial lesion but because of her concern aborted the CT of the temporal bone to be sure that it is not relevant or related to any vascular neoplasm of the temporal bone.
[2018-12-02] MEDS ORDERED: ED cefTRIAXone 1 GM/50 ML 1 GM/50 ML PREMIX.SET IVPB ONE (11:09)
--- NOTE | 2018-12-02 11:10 | ED ---
Abdominal Pain/Female - HPI Summary HPI Summary: The patient is a 43 y/o F presenting to [facility] with a chief complaint of sudden onset RLQ pain starting last night. She reports that throughout the day 2018, she was experiencing episodes of loose yellow-brown diarrhea, but then last night she began to have sharp RLQ pain. The pain persisted into this morning, and she has been having difficulty passing stool secondary to the pain and discomfort. She denies any left-sided abd pain, nausea, vomiting, fevers, chills, and vaginal bleeding or discharge. The pain is currently rated 8/10 in severity. There are no additional aggravating or alleviating factors. LNMP: one week ago. Hx of HTN, tachycardia, chronic bronchitis, PNA, gout, anxiety. Surgical hx of cholecystectomy; no appendectomy. FHx of anesthesia reaction. Nonsmoker, rare EtOH, no substance use. - History of Current Complaint Chief Complaint: EDAbdPain Stated Complaint: LOWER RT ABD PAIN PER PT Time Seen by Provider: 12/02/18 10:56 Hx Obtained From: Patient Hx Last Menstrual Period: one week ago ?: No - per patient Onset/Duration: Sudden Onset, Lasting Hours - starting last night, Still Present Timing: Hours Severity Initially: Mild Severity Currently: Severe Pain Intensity: 8 Pain Scale Used: 0-10 Numeric Location: Discrete At: RLQ Radiates: No Character: Sharp Aggravating Factor(s): Other: - BMs Alleviating Factor(s): Nothing Associated Signs and Symptoms: Positive: Diarrhea - loose yellow-brown stool, Other: - NEGATIVE: left-sided abd pain. Negative: Fever, Vaginal Bleeding, Vaginal Discharge, Nausea, Vomiting Allergies/Adverse Reactions: Allergies Allergy/AdvReac Type Severity Reaction Status Date / Time No Known Allergies Allergy Verified 11/28/18 22:27 PMH/Surg Hx/FS Hx/Imm Hx Endocrine/Hematology History: Denies: Hx Anticoagulant Therapy, Hx Blood Disorders, Hx Diabetes, Hx Thyroid Disease, Hx Anemia, Hx Unexplained Bleeding Cardiovascular History: Reports: Hx Hypertension, Other Cardiovascular Problems/ Disorders - tachycardia Denies: Hx Aneurysm, Hx Angina, Hx Angioplasty, Hx Auto Implanted Cardiovert Defib, Hx Cardiac Arrest, Hx Cardiomegaly, Hx Congenital Heart Disease, Hx Congestive Heart Failure, Hx Coronary Artery Disease, Hx Deep Vein Thrombosis, Hx Embolism, Hx Hypercholesterolemia, Hx Hypotension, Hx Pacemaker/ICD, Hx Peripheral Vascular Disease, Hx Rheumatic Fever, Hx Syncope, Hx Valvular Heart Disease Respiratory History: Reports: Hx Chronic Bronchitis, Hx Pneumonia Denies: Hx Asthma, Hx Pulmonary Edema, Hx Pulmonary Embolism, Hx Sleep Apnea GI History: Denies: Hx Cirrhosis, Hx Crohn's Disease, Hx Gastroesophageal Reflux Disease , Hx Gastrointestinal Bleed, Hx Hiatal Hernia, Hx Irritable Bowel, Hx Jaundice, Hx Ileostomy, Hx Pyloric Stenosis, Hx Ulcer, Other GI Disorders History: Denies: Hx Acute Renal Failure, Hx Benign Prostatic Hyperplasia, Hx Chronic Renal Failure, Hx Dialysis, Hx Kidney Infection, Hx Kidney Stones, Other Problems/Disorders Musculoskeletal History: Reports: Hx Gout Denies: Hx Arthritis, Hx Bursitis, Hx Tendonitis, Other Musculoskeletal History Sensory History: Denies: Hx Cataracts, Hx Contacts or Glasses, Hx Eye Injury, Hx Eye Prosthesis, Hx Glaucoma, Hx Legally Blind, Hx Macular Degeneration, Hx Vision Problem, Hx Deafness, Hx Hearing Aid, Hx Hearing Problem, Other Sensory Impairments Opthamlomology History: Denies: Hx Cataracts, Hx Contacts or Glasses, Hx Eye Injury, Hx Eye Prosthesis, Hx Glaucoma, Hx Legally Blind, Hx Macular Degeneration, Hx Vision Problem, Other Sensory Impairments Neurological History: Denies: Hx Dementia, Hx Developmental Delay, Hx Headaches, Hx Migraine, Hx Nerve Disease, Hx Seizures, Hx Spinal Cord Injury, Hx Transient Ischemic Attacks (TIA), Other Neuro Impairments/Disorders Psychiatric History: Reports: Hx Anxiety Denies: Hx Attention Deficit Hyperactivity Disorder, Hx Eating Disorder, Hx Depression, Hx Panic Disorder, Hx Post Traumatic Stress Disorder, Hx Inpatient Treatment, Hx Community Mental Health Tx, Hx Schizophrenia, Hx Bipolar Disorder , Hx Suicide Attempt, Hx of Violent Episodes Against Others, Hx Substance Abuse - Cancer History Hx Chemotherapy: No - Surgical History Surgery Procedure, Year, and Place: CHOLECYSTECTOMY MAR 2015 Hx Anesthesia Reactions: No Infectious Disease History: No Infectious Disease History: Denies: Hx Hepatitis, Traveled Outside the [place] in Last 30 Days - Family History Known Family History: Positive: Hypertension, Other - Positive for adverse anesthesia reaction - Social History Alcohol Use: Rare Hx Substance Use: No Substance Use Type: Reports: None Hx Tobacco Use: No Smoking Status (MU): Never Smoked Tobacco Do You Chew or Dip Tobacco: No Have You Chewed or Dipped Tobacco in the LAST YEAR: No Have You Smoked in the Last Year: No Review of Systems Negative: Fever, Chills Positive: Abdominal Pain - RLQ, no left-sided pain, Diarrhea - loose yellow- brown stool. Negative: Vomiting, Nausea Positive: other - NEGATIVE: vaginal bleeding. Negative: discharge All Other Systems Reviewed And Are Negative: Yes Physical Exam - Summary Physical Exam Summary: Appearance: Well appearing, no pain distress Skin: warm, dry, reflects adequate perfusion Head/face: normal Eyes: EOMI, BASSAM ENT: normal Neck: supple, non-tender Respiratory: CTA, breath sounds present Cardiovascular: RRR, pulses symmetrical Abdomen: RLQ tenderness, soft Musculoskeletal: normal, strength/ROM intact Neuro: normal, sensory motor intact, A&Ox3 Triage Information Reviewed: Yes Vital Signs On Initial Exam: Initial Vitals Temp Pulse Resp BP Pulse Ox 97.6 F 96 18 144/104 98 12/02/18 10:42 12/02/18 10:42 12/02/18 10:42 12/02/18 10:42 12/02/18 10:42 Vital Signs Reviewed: Yes Diagnostics - Vital Signs Vital Signs Temp Pulse Resp BP Pulse Ox 12/02/18 10:42 97.6 F 96 18 144/104 98 - Laboratory Result Diagrams: 12/02/18 11:23 12/02/18 11:23 Lab Statement: Any lab studies that have been ordered have been reviewed, and results considered in the medical decision making process. - CT Abd/Pel CT CT Interpretation Completed By: Radiologist Summary of CT Findings: Impression: Normal appendix. The right ovary appears to abut the cecum. Likely myomatous changes of the uterus. No free fluid is identified in the pelvis. No hernias are noted. ED physician has reviewed this report. - Ultrasound Pelvic/Transvaginal US Ultrasound Interpretation Completed By: Radiologist Summary of Ultrasound Findings: Impression: Flow is noted in both ovaries. Myomatous changes of the uterus is noted. ED physician has reviewed this report. Re-Evaluation - Re-Evaluation First Eval Re-Evaluation Time: 15:25 Comment: I discussed results thus far. Second Eval Re-Evaluation Time: 16:30 Comment: I discussed discharge with the patient. Abdominal Pain Fem Course/Dx - Course Course Of Treatment: The patient is a 43 y/o F presenting to [facility] with a chief complaint of sudden onset shaprp RLQ pain starting last night with episodes of loose yellow-brown diarrhea occurring previous to the abd pain, but then she started experiencing difficulty passing stool secondary to pain and discomfort. Denies any left-sided abd pain, nausea, vomiting, fevers, chills, and vaginal bleeding or discharge. Surgical hx of cholecystectomy; no appendectomy. Upon physical exam, the patient exhibits RLQ tenderness. In the ED course, the patient was administered Ns, Zofran, Morphine, Ceftriaxone, and Visipaque for CT. Blood work and UA obtained without significant abnormalities. Abd/Pel CT Impression: Normal appendix. The right ovary appears to abut the cecum. Likely myomatous changes of the uterus. No free fluid is identified in the pelvis. No hernias are noted. Pelvic/Transvaginal US Impression: Flow is noted in both ovaries. Myomatous changes of the uterus is noted. The patient is diagnosed with right sided abd pain. She agrees with plan for discharge with follow up with Dr. Villalta, [employer]. She is prescribed Naproxen for pain. - Diagnoses Differential Diagnosis: Positive: Appendicitis, Diverticulitis, Ovarian Cyst, Renal Colic, Urinary Tract Infection Provider Diagnoses: Right sided abdominal pain, Fibroids Discharge - Sign-Out/Discharge Documenting (check all that apply): Patient Departure - Patient will be discharged home. Patient Received Moderate/Deep Sedation with Procedure: No - Discharge Plan Condition: Stable Disposition: HOME Prescriptions: Naproxen [Naproxen 500 mg tab] 500 mg PO TID #20 tablet Patient Education Materials: Abdominal Pain (ED) Referrals: Patti Garcia MD [Primary Care Provider] - 3 Days Tolu Villalta MD [Medical Doctor] - 3 Days Additional Instructions: Please take medications as prescribed. Follow up with Dr. Villalta, [employer], and primary care provider in 2-3 days. RETURN TO THE EMERGENCY DEPARTMENT FOR ANY NEW OR WORSENING SYMPTOMS. - Billing Disposition and Condition Condition: STABLE Disposition: Home - Attestation Statements Document Initiated by Scribe: Yes Documenting Scribe: Marie Oh Provider For Whom Clarissa is Documenting (Include Credential): Dr. Lucho Mazariegos MD Scribe Attestation: Marie Rogers scribed for Dr. Lucho Mazariegos MD on 12/02/18 at 1737. Scribe Documentation Reviewed: Yes Provider Attestation: The documentation as recorded by the Marie grande accurately reflects the service I personally performed and the decisions made by me, Dr. Lucho Mazariegos MD Status of Clarissa Document: Viewed
[2018-12-02] MEDS ORDERED: NS 0.9% 1000 ML** 1,000 ML IV SCH (11:15)
[2018-12-02 11:31] LABS: ABS Eosinophils 0.1 10^3/ul (0-0.6); ABS Lymphocytes 1.2 10^3/ul (1.0-4.8); ABS Monocytes 0.6 10^3/ul (0-0.8); ABS Neutrophils 5.6 10^3/ul (1.5-7.7); Eosinophil % 1.6 %; Hematocrit 38 % (35-47); Hemoglobin 12.8 g/dL (12.0-16.0); Lymphocyte % 15.8 %; Mean Corpuscular HGB Conc 34 g/dL (31-36); Mean Corpuscular Hemoglobin 30 pg (27-31); Mean Corpuscular Volume 87 fL (80-97); Mean Platelet Volume 7.9 fL (7.4-10.4); Platelet Count 194 10^3/uL (150-450); Red Blood Count 4.29 10^6 /uL (3.70-4.87); Red Cell Distribution Width 14 % (10-15); White Blood Count 7.6 10^3/uL (3.5-10.8)
[2018-12-02] MEDS ORDERED: Ondansetron INJ* 2 MG/ML VIAL IV ONE (11:31)
[2018-12-02] MEDS ORDERED: Morphine 4 MG/ML VIAL (1 ml) 4 MG/ML VIAL IV ONE (11:31)
[2018-12-02 11:55] LABS: ALT 20 U/L (7-52); AST 17 U/L (13-39); Albumin 3.8 g/dL (3.2-5.2); Albumin/Globulin Ratio 1.5 (1-3); Alkaline Phosphatase 72 U/L (34-104); Anion Gap 8 mmol/L (2-11); BUN/Creatinine Ratio 19.3 (8-20); Blood Urea Nitrogen 11 mg/dL (6-24); C Reactive Protein 6.34 mg/L (<8.01); CO2 Carbon Dioxide 26 mmol/L (22-32); Calcium 8.9 mg/dL (8.6-10.3); Chloride 104 mmol/L (101-111); EGFR African American 139.4 (>60); EGFR Non-African American 115.2 (>60); Globulin 2.6 g/dL (2-4); Glucose 149 mg/dL (70-100); Potassium 3.8 mmol/L (3.5-5.0); Sodium 138 mmol/L (135-145); Total Protein 6.4 g/dL (6.4-8.9)
[2018-12-02 12:00] LABS: HCG Pregnancy < 0.60 mIU/mL
[2018-12-02] MEDS ORDERED: Iohexol 300* (CONTRAST) 10 ML SDV IV ONE (12:03)
[2018-12-02 13:34] LABS: Urine Appearance Clear; Urine Bilirubin Negative (Negative); Urine Blood Negative (Negative); Urine Color Straw; Urine Glucose Negative (Negative); Urine Ketones Negative (Negative); Urine Nitrite Negative (Negative); Urine Protein Negative (Negative); Urine Specific Gravity 1.009 (1.010-1.030); Urine Urobilinogen Negative (Negative)
[2018-12-02 14:57] LABS: Activated Partial Thrombo Time 32.4 seconds (26.0-38.0)
[2018-12-02 16:51] VITALS: BP 130/97
== END 2018-12-02 16:50 | disposition home or self-care (01) ==
LOC: ED 10:40
DX: R10.31 Right lower quadrant pain (principal); D25.9 Leiomyoma of uterus, unspecified; I10 Essential (primary) hypertension
CPT/HCPCS: 36415; 74177; 76830; 76856; 80053; 81003; 83605; 83690; 84702; 85025; 85610; 85730; 86140; 96361; 96365; 96375; 99283; J2270; J2405; Q9967

== ENCOUNTER 2019-01-15 15:17 | Emergency (ER) | payer OTHER ==
[2019-01-15 15:33] VITALS: BP 152/102
--- NOTE | 2019-01-15 15:47 | UC ---
Headache HPI - HPI Summary HPI Summary: LOUIS x2 days with high blood pressure; she measures at home. Has some nausea. Last night bp was sys 200. denies change in speech, vision changes or gait changes. no facial drooping. - History Of Current Complaint Chief Complaint: UCHeadakuldeep Stated Complaint: HIGH BP, HEADACHE Time Seen by Provider: 01/15/19 15:41 Hx Obtained From: Patient Hx Last Menstrual Period: 1 week ago Onset/Duration: Sudden Onset Initially Headache Was: "Worst Headache Ever" Pain Intensity: 8 Pain Scale Used: 0-10 Numeric - Allergies/Home Medications Allergies/Adverse Reactions: Allergies Allergy/AdvReac Type Severity Reaction Status Date / Time No Known Allergies Allergy Verified 01/15/19 15:33 PMH/Surg Hx/FS Hx/Imm Hx Endocrine History: Other - obese Cardiovascular History: Cardiac Disease, Hypertension Other History Of: Negative For: Anticoagulant Therapy - Surgical History Surgical History: Yes Surgery Procedure, Year, and Place: CHOLECYSTECTOMY MAR 2015 - Family History Known Family History: Positive: Hypertension, Other - Positive for adverse anesthesia reaction - Social History Alcohol Use: Rare Substance Use Type: None Smoking Status (MU): Never Smoked Tobacco Have You Smoked in the Last Year: No - Immunization History Most Recent Influenza Vaccination: does not recieve Most Recent Tetanus Shot: within last 5yrs Most Recent Pneumonia Vaccination: does not recieve Review of Systems All Other Systems Reviewed And Are Negative: Yes Constitutional: Negative: Fever, Chills, Fatigue Respiratory: Positive: Negative Cardiovascular: Positive: Negative Gastrointestinal: Positive: Nausea Neurological: Positive: Headache. Negative: Weakness, Paresthesia, Numbness Physical Exam Triage Information Reviewed: Yes Appearance: Well-Appearing Vital Signs: Initial Vital Signs Temp 98 F 01/15/19 15:25 Pulse 109 01/15/19 15:25 Resp 16 01/15/19 15:25 BP 152/102 01/15/19 15:25 Pulse Ox 97 01/15/19 15:25 Eyes: Positive: Other: - PERRLA Neck: Positive: Supple Respiratory Exam: Normal Cardiovascular Exam: Normal Neurological: Positive: Alert, Other: - CN II-XII INTACT Headache Course/Dx - Course Course Of Treatment: Given 2 day hx of louis and continued high blood pressure will send to ED to r/o stroke or other cerebral bleed. has risks. exam did not show an;y neuro deficits and had normal speech. Gait stable. Called ambulance and let ED know ahead of time; spoke to Lisset. - Differential Dx/Diagnosis Differential Diagnosis/HQI/PQRI: CVA, Subarachnoid Hemorrhage, Tension Headache Provider Diagnosis: Headache, HTN (hypertension) Discharge ED - Sign-Out/Discharge Documenting (check all that apply): Patient Departure All imaging exams completed and their final reports reviewed: No Studies - Discharge Plan Condition: Stable Disposition: TRANS HIGHER LVL OF CARE FAC Referrals: Patti Garcia MD [Primary Care Provider] - - Billing Disposition and Condition Condition: STABLE Disposition: Trans Higher Lvl of Care Fac - Attestation Statements Provider Attestation: I was available for consult. This patient was seen by the AICHA. The patient was not presented to , seen by or examined by va -Jasmina Pennington MD
== END 2019-01-15 16:00 | disposition short-term general hospital (02) ==
LOC: UCEAST 15:17
DX: I10 Essential (primary) hypertension (principal); R51 Headache
CPT/HCPCS: 96360; 99203; G0463

== ENCOUNTER 2019-01-15 16:20 | Emergency (ER) | payer OTHER ==
[2019-01-15] MEDS ORDERED: NS 0.9% 1000 ML** 1,000 ML IV ONE (17:01)
[2019-01-15] MEDS ORDERED: diPHENhydraMINE IV* 50 MG/ML 1 ml VIAL (BENADRYL) IV ONE (17:01)
[2019-01-15] MEDS ORDERED: Ketorolac INJ* 30 MG/ML 1 ML VIAL IV PUSH ONE (17:01)
[2019-01-15] MEDS ORDERED: PROCHLORPERAZINE INJ 5 MG/ML 2 ML VIAL IV ONE (17:02)
--- NOTE | 2019-01-15 17:09 | ED ---
Headache - HPI Summary HPI Summary: This pt is a 43 Y/O F presenting to [facility] accompanied by her son with a CC of a migraine. She states that she takes Lipitor and last night she had 2 episodes of high blood pressure while she was going to sleep. She states that she currently has a migraine that radiates down the back of her neck into her shoulder blades. She states that it isnt getting worse or getting better and is currently rated a 6/10 in severity. She states that she was nauseas and photophobic. She states that she took her Tylenol PM around 0900 this morning to no effect. She denies any weakness to her arms and legs, fevers, chills, CP, and SOB. She has no aggravating or alleviating factors. She states that she has been taking her blood pressure medication but her blood pressure has not returned to her normal values. - History Of Current Complaint Chief Complaint: EDGeneral Stated Complaint: POSS H BP AND HEADACHE PER CC Time Seen by Provider: 01/15/19 16:40 Hx Obtained From: Patient Hx Last Menstrual Period: 1 week ago Onset/Duration: Sudden Onset, Still Present Initially Headache Was: Initial Pain Scale(0-10)= - 6, Moderate Currently Pain Is: Current Pain Scale(0-10)= - 6, Moderate Timing: Constant Character: Migraine Location of Headache: Occipital Radiates to: neck and down her back Aggravating Factor: Nothing Allevating Factors: Nothing Associated Signs And Symptoms: Negative - weakness to her arms and legs, fevers , chills, CP, and SOB, Nausea, Neck Pain - radiated headache pain, Visual Changes - photophobic - Allergies/Home Medications Allergies/Adverse Reactions: Allergies Allergy/AdvReac Type Severity Reaction Status Date / Time No Known Allergies Allergy Verified 01/15/19 15:33 Home Medications: Home Medications hydrOXYzine HCL TAB* [Atarax 25 MG TAB*] 25 mg PO DAILY 01/15/19 [History Confirmed 01/15/19] PMH/Surg Hx/FS Hx/Imm Hx Previously Healthy: Yes Endocrine/Hematology History: Denies: Hx Anticoagulant Therapy, Hx Blood Disorders, Hx Diabetes, Hx Thyroid Disease, Hx Anemia, Hx Unexplained Bleeding Cardiovascular History: Reports: Hx Hypertension, Other Cardiovascular Problems/ Disorders - tachycardia Denies: Hx Aneurysm, Hx Angina, Hx Angioplasty, Hx Auto Implanted Cardiovert Defib, Hx Cardiac Arrest, Hx Cardiomegaly, Hx Congenital Heart Disease, Hx Congestive Heart Failure, Hx Coronary Artery Disease, Hx Deep Vein Thrombosis, Hx Embolism, Hx Hypercholesterolemia, Hx Hypotension, Hx Pacemaker/ICD, Hx Peripheral Vascular Disease, Hx Rheumatic Fever, Hx Syncope, Hx Valvular Heart Disease Respiratory History: Reports: Hx Chronic Bronchitis, Hx Pneumonia Denies: Hx Asthma, Hx Pulmonary Edema, Hx Pulmonary Embolism, Hx Sleep Apnea GI History: Denies: Hx Cirrhosis, Hx Crohn's Disease, Hx Gastroesophageal Reflux Disease , Hx Gastrointestinal Bleed, Hx Hiatal Hernia, Hx Irritable Bowel, Hx Jaundice, Hx Ileostomy, Hx Pyloric Stenosis, Hx Ulcer, Other GI Disorders History: Denies: Hx Acute Renal Failure, Hx Benign Prostatic Hyperplasia, Hx Chronic Renal Failure, Hx Dialysis, Hx Kidney Infection, Hx Kidney Stones, Other Problems/Disorders Musculoskeletal History: Reports: Hx Gout Denies: Hx Arthritis, Hx Bursitis, Hx Tendonitis, Other Musculoskeletal History Sensory History: Denies: Hx Cataracts, Hx Contacts or Glasses, Hx Eye Injury, Hx Eye Prosthesis, Hx Glaucoma, Hx Legally Blind, Hx Macular Degeneration, Hx Vision Problem, Hx Deafness, Hx Hearing Aid, Hx Hearing Problem, Other Sensory Impairments Opthamlomology History: Denies: Hx Cataracts, Hx Contacts or Glasses, Hx Eye Injury, Hx Eye Prosthesis, Hx Glaucoma, Hx Legally Blind, Hx Macular Degeneration, Hx Vision Problem, Other Sensory Impairments Neurological History: Denies: Hx Dementia, Hx Developmental Delay, Hx Headaches, Hx Migraine, Hx Nerve Disease, Hx Seizures, Hx Spinal Cord Injury, Hx Transient Ischemic Attacks (TIA), Other Neuro Impairments/Disorders Psychiatric History: Reports: Hx Anxiety Denies: Hx Attention Deficit Hyperactivity Disorder, Hx Eating Disorder, Hx Depression, Hx Panic Disorder, Hx Post Traumatic Stress Disorder, Hx Inpatient Treatment, Hx Community Mental Health Tx, Hx Schizophrenia, Hx Bipolar Disorder , Hx Suicide Attempt, Hx of Violent Episodes Against Others, Hx Substance Abuse - Cancer History Hx Chemotherapy: No - Surgical History Surgery Procedure, Year, and Place: CHOLECYSTECTOMY MAR 2015 Hx Anesthesia Reactions: No Infectious Disease History: No Infectious Disease History: Denies: Hx Hepatitis, Traveled Outside the [place] in Last 30 Days - Family History Known Family History: Positive: Hypertension, Other - Positive for adverse anesthesia reaction - Social History Alcohol Use: Rare Hx Substance Use: No Substance Use Type: Reports: None Hx Tobacco Use: No Smoking Status (MU): Never Smoked Tobacco Have You Smoked in the Last Year: No Review of Systems Negative: Fever, Chills Negative: Chest Pain Negative: Shortness Of Breath Positive: Nausea Positive: Headache - migraine . Negative: Weakness All Other Systems Reviewed And Are Negative: Yes Physical Exam - Summary Physical Exam Summary: Constitutional: Well-developed, Well-nourished, Alert. (-) Distressed Skin: Warm, Dry HENT: Normocephalic; Atraumatic Eyes: Conjunctiva normal Neck: Musculoskeletal ROM normal neck. (-) JVD, (-) Stridor, (-) Tracheal deviation Cardio: Rhythm regular, rate normal, Heart sounds normal; Intact distal pulses; The pedal pulses are 2+ and symmetric. Radial pulses are 2+ and symmetric. (-) Murmur Pulmonary/Chest wall: Effort normal. (-) Respiratory distress, (-) Wheezes, (-) Rales Abd: Soft, (-) tenderness, (-) Distension, (-) Guarding, (-) Rebound Musculoskeletal: (-) Edema Lymph: (-) Cervical adenopathy Neuro: Alert, Oriented x3 Psych: Mood and affect Normal NIH: 0 Triage Information Reviewed: Yes Vital Signs On Initial Exam: Initial Vitals Temp Pulse Resp BP Pulse Ox 97.1 F 98 16 124/93 97 01/15/19 16:33 01/15/19 16:33 01/15/19 16:33 01/15/19 16:33 01/15/19 16:33 Vital Signs Reviewed: Yes Diagnostics - Vital Signs Vital Signs Temp Pulse Resp BP Pulse Ox 01/15/19 16:33 97.1 F 98 16 124/93 97 - Laboratory Lab Statement: Any lab studies that have been ordered have been reviewed, and results considered in the medical decision making process. National Institutes Of Health - NIH Scale Level of Consciousness: Alert/Keenly Responsive Ask Patient the Month and His/Her Age: Both Correct Ask Pt to Open/Close Eyes and R Programmer/Release Non-Paretic Hand: Both Correctly Best Gaze (Only Horizontal Eye Movement): Normal Visual Field Testing: No Visual Loss Facial Paresis-Pt to Smile & Close Eyes or Grimace Symmetry: Normal/Symmetrical Motor Function - Right Arm: No Drift-Holds 10 Seconds Motor Function - Left Arm: No Drift-Holds 10 Seconds Motor Function - Right Leg: No Drift-Holds 10 Seconds Motor Function - Left Leg: No Drift-Holds 10 Seconds Limb Ataxia-Must be out of Proportion to Weakness Present: Absent Sensory (Use Pinprick to Test Arms/Legs/Trunk/Face): Normal Best Language (Describe Picture, Name Items): No Aphasia Dysarthria (Read Several Words): Normal Extinction and Inattention: No Abnormality Total Score: 0 Re-Evaluation - Re-Evaluation First Eval Re-Evaluation Time: 17:53 Change: Improved Comment: Pt is sitting on her bed eating ice cream and on her phone. She will be discharged home Headache Course/Dx - Course Course Of Treatment: Patient is here with her typical migraine in the setting of hypertension. Patient's blood pressure was normalized here compared to convenient care. Patient had a normal neurologic exam with an NIH stroke scale of 0. Patient was given a headache cocktail with vast improvement in her headache. Patient was given the name of a neurologist for follow-up for her frequent migraines. - Diagnoses Provider Diagnoses: Migraine Discharge ED - Sign-Out/Discharge Documenting (check all that apply): Patient Departure - discharge Patient Received Moderate/Deep Sedation with Procedure: No - Discharge Plan Condition: Stable Disposition: HOME Patient Education Materials: Migraine Headache (ED) Referrals: Anuel Head MD [Medical Doctor] - 1 Day Additional Instructions: RETURN TO THE EMERGENCY DEPARTMENT FOR ANY NEW OR WORSENING SYMPTOMS. Follow up with Dr. Head, Neurology, tomorrow for further investigations. - Billing Disposition and Condition Condition: STABLE Disposition: Home - Attestation Statements Document Initiated by Nayanae: Yes Documenting Scribe: Robbin Robledo Provider For Whom Clarissa is Documenting (Include Credential): Tomás Monzon MD Scribe Attestation: Robbin Rogers, scribed for Tomás Monzon MD on 01/15/19 at 2142. Scribe Documentation Reviewed: Yes Provider Attestation: The documentation as recorded by the Robbin grande accurately reflects the service I personally performed and the decisions made by , Tomás Monzon MD Status of Scribe Document: Viewed
[2019-01-15 18:23] VITALS: BP 143/95
== END 2019-01-15 18:20 | disposition home or self-care (01) ==
LOC: ED 16:20
DX: G43.909 Migraine, unspecified, not intractable, without status migrainosus (principal); I10 Essential (primary) hypertension; F41.9 Anxiety disorder, unspecified; Z90.49 Acquired absence of other specified parts of digestive tract; Z79.899 Other long term (current) drug therapy
CPT/HCPCS: 96361; 96374; 96375; 99283; J0780; J1200; J1885

== ENCOUNTER 2019-02-05 09:28 | Emergency (ER) | payer OTHER ==
[2019-02-05 09:37] VITALS: BP 149/116
--- OUTSIDE RECORDS SUMMARY | 2019-02-05 09:43 | XMS REPORT | Continuity of Care Document ---
:1975 External Reference #:[id number] Author Name Tolu Villalta M.D. 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 Onset: 10/26/2018 Cervicovaginal cytology: Low grade squamous Milton Painting M.D. Onset: 2018 intraepithelial lesion Social History Type Date Description Comments Sex Unknown Allergies, Adverse Reactions, Alerts Description No Known Drug Allergies Medications Active Medications SIG Qnty Indications Ordering Provider Date Multi Complete Unknown Capsules Immunizations Description No Information Available Vital Signs Date Vital Result Comment 01/24/2019 10:46am BP Systolic 130 mmHg BP Diastolic 84 mmHg Weight 250.00 lb 6 Parity 5 10/17/2018 9:45am BP Systolic 128 mmHg BP Diastolic 84 mmHg Weight 249.00 lb Last Menstrual Period [id number] Parity 5 Results Description No Information Available Procedures Description No Information Available Medical Devices Description No Information Available Encounters Description No Information Available Assessments Date Code Description Provider 01/24/2019 D25.9 Leiomyoma of uterus, unspecified Tolu Villalta M.D. 10/17/2018 D25.9 Leiomyoma of uterus, unspecified Tolu Villalta M.D. Plan of Treatment 01/24/2019 - Tolu Villalta M.D.D25.9 Leiomyoma of uterus, unspecifiedComments:pt to be refeered for laparoscopic myomectomy Functional Status Description No Information Available Mental Status Description No Information Available Referrals Refer to Reason for Referral Status Appt Date Yoandy Phan M.D. fibroids Created [address] [place] [id number] [phone]
--- OUTSIDE RECORDS SUMMARY | 2019-02-05 09:43 | XMS REPORT | Continuity of Care Document ---
:1975 External Reference #:[id number] Author Name Vineet Galloway MD Address [address] [place] [address] Care Team Providers Name Role Phone Pat Lundberg N.P. 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 Rice [phone] Practitioner Problems Active Problems Provider Date Essential hypertension Vineet Galloway MD Onset: 12/01/2018 Benign neoplasm of skin of face Vineet Galloway MD Onset: 12/15/2018 Neoplasm of uncertain behavior of skin Vinete Galloway MD Onset: 12/01/2018 Social History Type Date Description Comments Sex Unknown Cigarette Use Negative For Current Cigarette Smoker Tobacco Use Start: Unknown Never Smoked Cigars Tobacco Use Start: Unknown Never Smoked A Pipe Smokeless Tobacco Never Used Smokeless Tobacco ETOH Use Currently rarely consumes alcohol Allergies, Adverse Reactions, Alerts Description No Known Drug Allergies Medications Active Medications SIG Qnty Indications Ordering Provider Date Hypertensive Meds Unknown Immunizations Description No Information Available Vital Signs Date Vital Result Comment 12/01/2018 2:28pm Weight 244.00 lb Weight 110.678 kg Height 64 inches 5'4" Height in cm's 162.6 cm BMI (Body Mass Index) 41.9 kg/m2 10/28/2007 2:18pm BP Systolic 118 mmHg BP Diastolic 68 mmHg Heart Rate 78 /min Respiratory Rate 16 /min Results Description No Information Available Procedures Description No Information Available Medical Devices Description No Information Available Encounters Type Date Location Provider Dx Diagnosis Office Visit 12/15/2018 Deb Martines Ashu D23.39 Other benign 2:15p 05/10/07 neoplasm of skin of other parts of face Office Visit 12/01/2018 Deb Martines Ashu D48.5 Neoplasm of 2:30p 05/10/07 uncertain behavior of skin Assessments Date Code Description Provider 12/15/2018 D23.39 Other benign neoplasm of skin of other parts of Vineet Galloway MD face 12/01/2018 D48.5 Neoplasm of uncertain behavior of skin Vineet Galloway MD Plan of Treatment 12/15/2018 - Vineet Galloway MDD23.39 Other benign neoplasm of skin of other parts of faceComments:My clinical impression based on the examination prior documentation of the lesion and the present CTscan is 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 I suggest observation surgical excision may be complicated and is unnecessaryat this point Functional Status Description No Information Available Mental Status Description No Information Available Referrals Description No Information Available
[2019-02-05] MEDS ORDERED: Ibuprofen TAB* 800 MG PO ONE (10:05)
[2019-02-05 10:21] LABS: Rapid Strep Molecular Negative (Negative)
[2019-02-05 10:29] LABS: Influenza A Molecular NEGATIVE (Negative); Influenza B Molecular NEGATIVE (Negative)
--- NOTE | 2019-02-05 10:48 | ED ---
Influenza-Like Illness - HPI Summary HPI Summary: Patient is a 43-year-old female who presents emergency department for sore throat, cough and nasal congestion 2 days. Patient's daughter present with similar symptoms. Symptoms are mild in severity. No current modifying factors. - History of Current Complaint Chief Complaint: EDFluSymptoms Time Seen by Provider: 02/05/19 09:52 Hx Obtained From: Patient - Allergy/Home Medications Allergies/Adverse Reactions: Allergies Allergy/AdvReac Type Severity Reaction Status Date / Time No Known Allergies Allergy Verified 02/05/19 09:34 PMH/Surg Hx/FS Hx/Imm Hx Previously Healthy: Yes Endocrine/Hematology History: Denies: Hx Anticoagulant Therapy, Hx Blood Disorders, Hx Diabetes, Hx Thyroid Disease, Hx Anemia, Hx Unexplained Bleeding Cardiovascular History: Reports: Hx Hypertension, Other Cardiovascular Problems/ Disorders - tachycardia Denies: Hx Aneurysm, Hx Angina, Hx Angioplasty, Hx Auto Implanted Cardiovert Defib, Hx Cardiac Arrest, Hx Cardiomegaly, Hx Congenital Heart Disease, Hx Congestive Heart Failure, Hx Coronary Artery Disease, Hx Deep Vein Thrombosis, Hx Embolism, Hx Hypercholesterolemia, Hx Hypotension, Hx Pacemaker/ICD, Hx Peripheral Vascular Disease, Hx Rheumatic Fever, Hx Syncope, Hx Valvular Heart Disease Respiratory History: Reports: Hx Chronic Bronchitis, Hx Pneumonia Denies: Hx Asthma, Hx Pulmonary Edema, Hx Pulmonary Embolism, Hx Sleep Apnea GI History: Denies: Hx Cirrhosis, Hx Crohn's Disease, Hx Gastroesophageal Reflux Disease , Hx Gastrointestinal Bleed, Hx Hiatal Hernia, Hx Irritable Bowel, Hx Jaundice, Hx Ileostomy, Hx Pyloric Stenosis, Hx Ulcer, Other GI Disorders History: Denies: Hx Acute Renal Failure, Hx Benign Prostatic Hyperplasia, Hx Chronic Renal Failure, Hx Dialysis, Hx Kidney Infection, Hx Kidney Stones, Other Problems/Disorders Musculoskeletal History: Reports: Hx Gout Denies: Hx Arthritis, Hx Bursitis, Hx Tendonitis, Other Musculoskeletal History Sensory History: Denies: Hx Cataracts, Hx Contacts or Glasses, Hx Eye Injury, Hx Eye Prosthesis, Hx Glaucoma, Hx Legally Blind, Hx Macular Degeneration, Hx Vision Problem, Hx Deafness, Hx Hearing Aid, Hx Hearing Problem, Other Sensory Impairments Opthamlomology History: Denies: Hx Cataracts, Hx Contacts or Glasses, Hx Eye Injury, Hx Eye Prosthesis, Hx Glaucoma, Hx Legally Blind, Hx Macular Degeneration, Hx Vision Problem, Other Sensory Impairments Neurological History: Denies: Hx Dementia, Hx Developmental Delay, Hx Headaches, Hx Migraine, Hx Nerve Disease, Hx Seizures, Hx Spinal Cord Injury, Hx Transient Ischemic Attacks (TIA), Other Neuro Impairments/Disorders Psychiatric History: Reports: Hx Anxiety Denies: Hx Attention Deficit Hyperactivity Disorder, Hx Eating Disorder, Hx Depression, Hx Panic Disorder, Hx Post Traumatic Stress Disorder, Hx Inpatient Treatment, Hx Community Mental Health Tx, Hx Schizophrenia, Hx Bipolar Disorder , Hx Suicide Attempt, Hx of Violent Episodes Against Others, Hx Substance Abuse - Cancer History Hx Chemotherapy: No - Surgical History Surgery Procedure, Year, and Place: CHOLECYSTECTOMY MAR 2015 Hx Anesthesia Reactions: No Infectious Disease History: No Infectious Disease History: Denies: Hx Hepatitis, Traveled Outside the [place] in Last 30 Days - Family History Known Family History: Positive: Hypertension, Other - Positive for adverse anesthesia reaction, Non-Contributory - Social History Occupation: Unemployed Lives: With Family Alcohol Use: Rare Hx Substance Use: No Substance Use Type: Reports: None Hx Tobacco Use: No Smoking Status (MU): Never Smoked Tobacco Have You Smoked in the Last Year: No Review of Systems Constitutional: Negative Eyes: Negative Positive: Sore Throat Cardiovascular: Negative Positive: Cough. Negative: Shortness Of Breath Gastrointestinal: Negative Negative: Abdominal Pain, Vomiting, Diarrhea Skin: Negative Neurological: Negative All Other Systems Reviewed And Are Negative: Yes Physical Exam Triage Information Reviewed: Yes Vital Signs On Initial Exam: Initial Vitals Temp Pulse Resp BP Pulse Ox 98.2 F 92 16 149/116 97 02/05/19 09:33 02/05/19 09:33 02/05/19 09:33 02/05/19 09:33 02/05/19 09:33 Vital Signs Reviewed: Yes Appearance: Positive: Well-Appearing - Pt. lying in bed in NAD. Skin: Positive: Warm, Dry Head/Face: Positive: Normal Head/Face Inspection Eyes: Positive: Normal, EOMI, BASSAM ENT: Positive: Pharyngeal erythema, TMs normal, Uvula midline. Negative: Tonsillar swelling, Tonsillar exudate Neck: Positive: Supple, Nontender, No Lymphadenopathy Respiratory/Lung Sounds: Positive: Clear to Auscultation, Breath Sounds Present Cardiovascular: Positive: Normal, RRR Musculoskeletal: Positive: Normal, Strength/ROM Intact Neurological: Positive: Normal, CN Intact II-III Psychiatric: Positive: Affect/Mood Appropriate Diagnostics - Vital Signs Vital Signs Temp Pulse Resp BP Pulse Ox 02/05/19 09:33 98.2 F 92 16 149/116 97 - Laboratory Lab Results: Lab Results 02/05/19 02/05/19 Range/Units 10:00 10:00 Influenza A (Rapid) Negative (Negative) Influenza B (Rapid) Negative (Negative) Group A Strep Rapid Negative (Negative) Lab Statement: Any lab studies that have been ordered have been reviewed, and results considered in the medical decision making process. Flu Symptom Course/Dx - Course Course Of Treatment: Patient with the above symptoms. Patient was given a dose of Motrin for discomfort. Negative rapid strep and influenza. Suspect viral etiology. Advised patient conservative treatment. Increase fluids and rest. Tylenol or Motrin for discomfort as directed. Close follow-up with PCP if symptoms persist. Patient understands and agrees with plan. - Diagnoses Differential Diagnosis/HQI/PQRI: Positive: Bronchitis, Influenza, Upper Respiratory Infection Provider Diagnoses: Upper respiratory disease Discharge ED - Sign-Out/Discharge Documenting (check all that apply): Patient Departure Patient Received Moderate/Deep Sedation with Procedure: No - Discharge Plan Condition: Good Disposition: HOME Patient Education Materials: Viral Syndrome (ED) Referrals: Patti Garcia MD [Primary Care Provider] - Additional Instructions: Follow up with PCP in 2-3 days if symptoms persist Increase fluids and rest Tylenol or Motrin for discomfort as directed Return to ER if symptoms change or worsen - Billing Disposition and Condition Condition: GOOD Disposition: Home
== END 2019-02-05 11:08 | disposition home or self-care (01) ==
LOC: ED 09:28
DX: J06.9 Acute upper respiratory infection, unspecified (principal); I10 Essential (primary) hypertension; F41.9 Anxiety disorder, unspecified; Z90.49 Acquired absence of other specified parts of digestive tract
CPT/HCPCS: 87651; 99282; A9270-GY

== ENCOUNTER 2019-05-14 15:54 | Emergency (ER) | payer OTHER ==
--- OUTSIDE RECORDS SUMMARY | 2019-05-14 16:07 | XMS REPORT | Continuity of Care Document ---
:1975 External Reference #:[id number] Author Name Tolu Villalta M.D. 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 Onset: 10/26/2018 Cervicovaginal cytology: Low grade squamous Milton Painting M.D. Onset: 2018 intraepithelial lesion Social History Type Date Description Comments Sex Unknown Allergies, Adverse Reactions, Alerts Description No Known Drug Allergies Medications Active Medications SIG Qnty Indications Ordering Provider Date Multi Complete Unknown Capsules Medications Administered in Office Medication SIG Qnty Indications Ordering Provider Date PT SCRN Tbco Id as Non User Tolu Villalta M.D. 01/24/2019 Injection Immunizations Description No Information Available Vital Signs Date Vital Result Comment 05/09/2019 2:58pm BP Systolic 144 mmHg BP Diastolic 88 mmHg Height 65 inches 5'5" Weight 252.00 lb BMI (Body Mass Index) 41.9 kg/m2 Last Menstrual Period [id number] Parity 5 01/24/2019 10:46am BP Systolic 130 mmHg BP Diastolic 84 mmHg Weight 250.00 lb 6 Parity 5 Results Description No Information Available Procedures Description No Information Available Medical Devices Description No Information Available Encounters Type Date Location Provider Dx Diagnosis Office Visit 01/24/2019 [facility] Office Tolu Villalta, D25.9 Leiomyoma of uterus, 11:20a M.D. unspecified Assessments Date Code Description Provider 05/09/2019 D25.1 Intramural leiomyoma of uterus Tolu Villalta M.D. 01/24/2019 D25.9 Leiomyoma of uterus, unspecified Tolu Villalta M.D. Plan of Treatment 05/09/2019 - Tolu Villalta M.D.D25.1 Intramural leiomyoma of uterusComments: discussed options for fibroids and diagnosis of fibroids with pt . pt would like rereferal. Functional Status Description No Information Available Mental Status Description No Information Available Referrals Description No Information Available
--- OUTSIDE RECORDS SUMMARY | 2019-05-14 16:07 | XMS REPORT | Continuity of Care Document ---
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 Problems Active Problems Provider Date Tendon contracture Alex Iverson MD Onset: 04/18/2019 Metatarsalgia Alex Iverson MD Onset: 04/18/2019 Plantar fascial fibromatosis Alex Iverson MD Onset: 04/18/2019 Recurrent isolated sleep paralysis Samantha Decker MD Onset: 03/23/2016 Morbid obesity Samantha Decker MD Onset: 03/23/2016 Disturbance in sleep behavior Samantha Decker MD Onset: 03/23/2016 Social History Type Date Description Comments Sex Unknown Tobacco Use Start: Unknown Never Smoked Cigarettes Smoking Status Reviewed: 04/18/19 Never Smoked Cigarettes ETOH Use Denies alcohol use Tobacco Use Start: Unknown Patient has never smoked Recreational Drug Use Denies Drug Use Exercise Type/Frequency Exercises regularly Allergies, Adverse Reactions, Alerts Description No Known Drug Allergies Medications Description No Active Medications Immunizations Description No Information Available Vital Signs Date Vital Result Comment 04/18/2019 2:00pm Height 64 inches 5'4" Weight 230.00 lb Heart Rate 96 /min Respiratory Rate 18 /min Body Temperature 99.2 F Pain Level 10 BMI (Body Mass Index) 39.5 kg/m2 11/18/2016 10:57am Height 64 inches 5'4" Weight 220.00 lb Heart Rate 76 /min BP Systolic 133 mmHg BP Diastolic 76 mmHg Body Temperature 97.8 F BMI (Body Mass Index) 37.8 kg/m2 Results Description No Information Available Procedures Description No Information Available Medical Devices Description No Information Available Encounters Description No Information Available Assessments Date Code Description Provider 04/18/2019 M72.2 Plantar fascial fibromatosis Alex Iverson MD 04/18/2019 M77.41 Metatarsalgia, right foot Alex Iverson MD 04/18/2019 M67.01 Short Achilles tendon (acquired), right ankle Alex Iverson MD Plan of Treatment Future Appointment(s):06/02/2019 10:15 am - Alex Iverson MD at [facility] at [facility]/18/2019 - JULI Vega72.2 Plantar fascial fibromatosisNew Therapy:Physical TherapyFollow up:Follow Up: 6 wmmdmQ06.41 Metatarsalgia, right footM67.01 Short Achilles tendon (acquired), right ankle Functional Status Description No Information Available Mental Status Description No Information Available Referrals Description No Information Available
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
[2019-05-14] MEDS ORDERED: Acetaminophen TAB* 325 MG PO ONE (17:00)
[2019-05-14 19:18] VITALS: BP 163/100
== END 2019-05-14 19:18 | disposition home or self-care (01) ==
LOC: EEVIPCON 15:54 → ED 15:54
DX: S00.83XA Contusion of other part of head, initial encounter (principal); Y04.8XXA Assault by other bodily force, initial encounter; Y92.9 Unspecified place or not applicable; Y07.9 Unspecified perpetrator of maltreatment and neglect; R06.02 Shortness of breath; R07.1 Chest pain on breathing; M79.10 Myalgia, unspecified site
CPT/HCPCS: 70360; 99282; A9270-GY

== ENCOUNTER 2019-06-18 13:15 | Emergency (ER) | payer OTHER ==
--- OUTSIDE RECORDS SUMMARY | 2019-06-18 13:31 | XMS REPORT | Continuity of Care Document ---
:1975 External Reference #:[id number] Author Name Patti Garcia MD Address [address] [place] [address] Problems Active Problems Provider Date Impaired glucose tolerance Onset: 06/15/2018 Inactive Problems Anxiety Onset: 12/16/2018 Inactive: 12/16/2018 Elevated blood-pressure reading without diagnosis of hypertension Onset: Inactive: 12/07/2018 Uterine leiomyoma Onset: 12/07/2018 Inactive: 12/07/2018 Prediabetes Onset: 12/07/2018 Inactive: 12/07/2018 Social History Type Date Description Comments Sex Unknown Allergies, Adverse Reactions, Alerts Description No Known Drug Allergies Medications Active Medications SIG Qnty Indications Ordering Provider Date Clonazepam 1/4 as needed 5tabs Unknown 12/16/2018 0.5mg Oral Tablets Blood Pressure 1 External; 1units Unknown 12/07/2018 Monitor Talking Icd 10: R03.0 Auto-Inflation Med Cuff Misc Metformin HCL 1 tab oral twice 60tabs Pat Aittama, INSPECTING SUPERVISOR 12/07/2018 500mg daily Tablets Montelukast Sodium 1 daily Oral 30tabs Unknown 08/31/2018 10mg Tablets History Medications Clonazepam 1/4 as needed Oral Unknown 12/16/2018 - 12/16/2018 0.25mg Tablets Dispers Clonazepam 1/4 as needed prn 5tabs Unknown 12/16/2018 - 12/16/2018 0.25mg Tablets Oral Dispers Clonazepam 1/4 as needed prn 5tabs Unknown 12/16/2018 - 12/16/2018 0.25mg Tablets Oral Dispers Blood Pressure Monitor 1 External 1units Unknown 12/07/2018 - 2018 Talking Auto-Inflation Med Cuff Misc Immunizations CPT Code Status Date Vaccine Lot # [id number] Refused 06/14/2018 Influenza Virus Vaccine, Quadrivalent, Split, Im Use 0.25ML Vital Signs Date Vital Result Comment 02/27/2019 3:27pm BP Systolic 138 mmHg BP Diastolic 88 mmHg Height 64 inches 5'4" Weight 250.00 lb Heart Rate 99 /min Body Temperature 97.7 F O2 % BldC Oximetry 98 % BMI (Body Mass Index) 42.9 kg/m2 12/16/2018 10:55am BP Systolic 118 mmHg Weight 241.00 lb Heart Rate 110 /min Body Temperature 97.5 F O2 % BldC Oximetry 97 % Results Test Acquired Date Facility Test Result H/L Range Note Urine Culture And 02/27/2019 [facility] Urine Culture SEE RESULT [address] [place] [address] [phone] CFM Urinalysis 02/27/2019 [facility] Urine 1.025 ( )- - Specific [place] Ua PH Test Strip 6.0 Ua WBC neg Ua Protein trace Urine Ketones QL Test Strip neg Urine Bilirubin TTL QL T-Strip neg Urine Nitrite QL TS neg Ua Occult Blood trace Laboratory test 02/05/2019 [facility] Rapid Strep A Negative Negative [address] [place] [address] [phone] Influenza A & B 02/05/2019 [facility] Influenza A NEGATIVE Negative [address] [place] [address] [phone] Influenza B Molecular NEGATIVE Negative Neut# 12/02/2018 N2N/CCD Import Neut# 5.6 10_3/ul 1.5-7.7 10 3/ul MPV 12/02/2018 N2N/CCD Import MPV 7.9 fL 7.4-10.4 fL [place]% 12/02/2018 N2N/CCD Import [place]% 7.7 % 0 - 10 % [place]# 12/02/2018 N2N/CCD Import [place]# 0.6 10_3/ul 0-0.8 10 3/ul MCV 12/02/2018 N2N/CCD Import MCV 87 fL 80-97 fL MCHC 12/02/2018 N2N/CCD Import MCHC 34 g/dL 31-36 g/dL MCH 12/02/2018 N2N/CCD Import MCH 30 pg 27-31 pg Lymph% 12/02/2018 N2N/CCD Import Lymph% 15.8 % Low 20 - 45 % Lymph# 12/02/2018 N2N/CCD Import Lymph# 1.2 10_3/ul 1.0-4.8 10 3/ul Lipase 12/02/2018 N2N/CCD Import Lipase 19 U/L 11.0-82.0 U/L Leuk Est-Ua 12/02/2018 N2N/CCD Import Leuk Est-Ua Negative Negative Lactic Acid 12/02/2018 N2N/CCD Import Lactic Acid 1.2 mmol/L 0.5-2.0 mmol/L Ketones-Ua 12/02/2018 N2N/CCD Import Ketones-Ua Negative Negative Hemoglobin 12/02/2018 N2N/CCD Import Hemoglobin 12.8 g/dL 12.0-16.0 g/dL Hematocrit 12/02/2018 N2N/CCD Import Hematocrit 38 % 35-47 % Neut% 12/02/2018 N2N/CCD Import Neut% 74.4 % High 45 - 70 % Nitrite-Ua 12/02/2018 N2N/CCD Import Nitrite-Ua Negative Negative NRBC# 12/02/2018 N2N/CCD Import NRBC# 0.0 10_3/ul NRBC% 12/02/2018 N2N/CCD Import NRBC% 0.0 _ PH-Ua 12/02/2018 N2N/CCD Import PH-Ua 7.0 _ 5-9 Platelets 12/02/2018 N2N/CCD Import Platelets 194 10_3/uL 150-450 10 3/uL Potassium 12/02/2018 N2N/CCD Import Potassium 3.8 mmol/L 3.5-5.0 mmol/L Protein, Total 12/02/2018 N2N/CCD Import Protein, Total 6.4 g/dL 6.4- 8.9 g/dL Protein-Ua 12/02/2018 N2N/CCD Import Protein-Ua Negative Negative RBC 12/02/2018 N2N/CCD Import RBC 4.29 10_6_/uL 3.70-4.87 10 6 /uL RDW 12/02/2018 N2N/CCD Import RDW 14 % 10-15 % Sodium 12/02/2018 N2N/CCD Import Sodium 138 mmol/L 135-145 mmol/L SP Grav-Ua 12/02/2018 N2N/CCD Import SP Grav-Ua 1.009 _ Low 1.010-1.030 Urobilinogen-Ua 12/02/2018 N2N/CCD Import Urobilinogen-Ua Negative Negative WBC 12/02/2018 N2N/CCD Import WBC 7.6 10_3/uL 3.5-10.8 10 3/uL INR 12/02/2018 N2N/CCD Import INR 1.00 _ 0.82-1.09 PTT 12/02/2018 N2N/CCD Import PTT 32.4 seconds 26.0-38.0 seconds A/G Ratio 12/02/2018 N2N/CCD Import A/G Ratio 1.5 _ 1-3 Albumin 12/02/2018 N2N/CCD Import Albumin 3.8 g/dL 3.2-5.2 g/dL Alk Phos 12/02/2018 N2N/CCD Import Alk Phos 72 U/L 34-104 U/L Alt 12/02/2018 N2N/CCD Import Alt 20 U/L 7-52 U/L Anion Gap 12/02/2018 N2N/CCD Import Anion Gap 8 mmol/L 2-11 mmol/L Appear-Ua 12/02/2018 N2N/CCD Import Appear-Ua Clear Ast 12/02/2018 N2N/CCD Import Ast 17 U/L 13-39 U/L Baso# 12/02/2018 N2N/CCD Import Baso# 0.0 10_3/ul 0-0.2 10 3/ul Baso% 12/02/2018 N2N/CCD Import Baso% 0.5 % 0 - 2 % Bilirubin Total 12/02/2018 N2N/CCD Import Bilirubin Total 0.50 mg/dL 0.2 -1.0 mg/dL Bilirubin-Ua 12/02/2018 N2N/CCD Import Bilirubin-Ua Negative Negative Blood-Ua 12/02/2018 N2N/CCD Import Blood-Ua Negative Negative BUN 12/02/2018 N2N/CCD Import BUN 11 mg/dL 6-24 mg/dL BUN/Creat Ratio 12/02/2018 N2N/CCD Import BUN/Creat Ratio 19.3 _ 8-20 Calcium 12/02/2018 N2N/CCD Import Calcium 8.9 mg/dL 8.6-10.3 mg/dL Chloride 12/02/2018 N2N/CCD Import Chloride 104 mmol/L 101-111 mmol/L Co2 12/02/2018 N2N/CCD Import Co2 26 mmol/L 22-32 mmol/L Color-Ua 12/02/2018 N2N/CCD Import Color-Ua Straw Creatinine 12/02/2018 N2N/CCD Import Creatinine 0.57 mg/dL 0.51-0.95 mg/dL CRP 12/02/2018 N2N/CCD Import CRP 6.34 mg/L <8.01 mg/L Eosin# 12/02/2018 N2N/CCD Import Eosin# 0.1 10_3/ul 0-0.6 10 3/ul Eosin% 12/02/2018 N2N/CCD Import Eosin% 1.6 % 0 - 5 % GFR Afr Amer 12/02/2018 N2N/CCD Import GFR Afr Amer 139.4 _ >60 GFR Non Afr 12/02/2018 N2N/CCD Import GFR Non Afr 115.2 _ >60 Amer Amer Globulin 12/02/2018 N2N/CCD Import Globulin 2.6 g/dL 2-4 g/dL Glucose 12/02/2018 N2N/CCD Import Glucose 149 mg/dL High 70-100 mg/dL Glucose-Ua 12/02/2018 N2N/CCD Import Glucose-Ua Negative Negative HCG, Serum 12/02/2018 N2N/CCD Import HCG, Serum < 0.60 Quant Quant 1 SEE RESULT BELOW Name: ALIS WEST : [address]: Pat Lundberg NP Acct: [id number] Unit: [id number] AGE: 43 Location: [facility] Re02/27/19 SEX: F Status: REG REF SPEC: [id number] KATINA: 02/27/[address] [facility] [address]: Pat Lundberg NP REQ: [id number] RECD: 02/27/19 STATUS: COMP _ SOURCE: URINE SPDESC: ORDERED: Urine Culture COMMENTS: [id number] Urine Source: Random Procedure Result Reported Site Urine Culture Final 03/01/19- 0851 ML No growth of clinically significant organisms * ML - Main Lab . END OF REPORT DEPARTMENT OF PATHOLOGY, [address] [place] [address] Layo Reynoso M.D. Director [facility] # [id number] 2 Director Of Testing: [id number] 3 Director Of Testing: [id number] Procedures Description No Information Available Medical Devices Description No Information Available Encounters Type Date Location Provider Dx Diagnosis Office Visit 06/01/2019 11:45a [facility] Main Patti Garcia MD R00.2 Palpitations G47.9 Sleep disorder, unspecified Office Visit 02/27/2019 3:30p [facility] Main CINDY Sinclair M54.5 Low back pain Z68.41 Body mass index (BMI) 40.0-44.9, adult Assessments Date Code Description Provider 06/01/2019 R00.2 Palpitations Patti Garcia MD 06/01/2019 G47.9 Sleep disorder, unspecified Patti Garcia MD 02/27/2019 M54.5 Low back pain CINDY Sinclair 02/27/2019 Z68.41 Body mass index (BMI) 40.0-44.9, adult ICNDY Sinclair Plan of Treatment Future Appointment(s):06/12/2019 11:45 am - Yesica Jauregui DO at [facility] Main - Patti Garcia MDR00.2 PalpitationsReferral:Cardiology Experimental Rocket Sled Mechanic,G47.9 Sleep disorder, unspecifiedReferral:Glenn Deng, Functional Status Description No Information Available Mental Status Description No Information Available Referrals Refer to Reason for Referral Status Appt Date Cardiology Experimental Rocket Sled Mechanic Chronic tachycardia, re-establishing with Created video photographer Glenn Deng Patient with symptoms of hallucinations, paralysis Created and buzzing in her head after waking up if she naps during the day. Also experiences "buzzing in her head" not her ears across the day. [address] [place] [address] [phone]
[2019-06-18 13:42] LABS: Rapid Strep Molecular Negative (Negative)
[2019-06-18 13:52] LABS: Influenza A Molecular Negative (Negative); Influenza B Molecular Negative (Negative)
[2019-06-18] MEDS ORDERED: Albuterol HFA INHALER* 8 gm MDI INH ONE (14:59)
[2019-06-18] MEDS ORDERED: guaiFENesin 100 mg/5 ml LIQ unit dose cup PO ONE (15:00)
[2019-06-18 15:52] VITALS: BP 127/86
--- NOTE | 2019-06-18 15:55 | ED ---
Respiratory - HPI Summary HPI Summary: Patient is a 43-year-old female who presents to the ED with a one-day history of sore throat, cough, congestion and rhinorrhea. Denies any fevers, sweats, chills. Denies any cough production. She states her rhinorrhea is a green yellow mucous. She is concerned over a PNA. Denies any known sick contacts. She denies a smoking history. Denies asthma or COPD. She states she has not tried any medications for relief. She will not use a nasal spray or albuterol inhaler as she doesn't like the feeling. - History of Current Complaint Chief Complaint: Lucille Stated Complaint: FLU LIKE SYMPTOMS Time Seen by Provider: 06/18/19 14:39 Hx Obtained From: Patient Onset/Duration: Sudden Onset Timing: Constant Initial Severity: Mild Current Severity: Mild Pain Intensity: 5 Character: Cough (Nonproductive) Sputum Amount: None Sputum Color: Clear Aggravating Factor(s): URI Alleviating Factor(s): Nothing Associated Signs and Symptoms: Negative - Allergy/Home Medications Allergies/Adverse Reactions: Allergies Allergy/AdvReac Type Severity Reaction Status Date / Time No Known Allergies Allergy Verified 05/14/19 16:02 PMH/Surg Hx/FS Hx/Imm Hx Previously Healthy: Yes Endocrine/Hematology History: Denies: Hx Anticoagulant Therapy, Hx Blood Disorders, Hx Diabetes, Hx Thyroid Disease, Hx Anemia, Hx Unexplained Bleeding Cardiovascular History: Reports: Hx Hypertension, Other Cardiovascular Problems/ Disorders - tachycardia Denies: Hx Aneurysm, Hx Angina, Hx Angioplasty, Hx Auto Implanted Cardiovert Defib, Hx Cardiac Arrest, Hx Cardiomegaly, Hx Congenital Heart Disease, Hx Congestive Heart Failure, Hx Coronary Artery Disease, Hx Deep Vein Thrombosis, Hx Embolism, Hx Hypercholesterolemia, Hx Hypotension, Hx Pacemaker/ICD, Hx Peripheral Vascular Disease, Hx Rheumatic Fever, Hx Syncope, Hx Valvular Heart Disease Respiratory History: Reports: Hx Chronic Bronchitis, Hx Pneumonia Denies: Hx Asthma, Hx Pulmonary Edema, Hx Pulmonary Embolism, Hx Sleep Apnea GI History: Denies: Hx Cirrhosis, Hx Crohn's Disease, Hx Gastroesophageal Reflux Disease , Hx Gastrointestinal Bleed, Hx Hiatal Hernia, Hx Irritable Bowel, Hx Jaundice, Hx Ileostomy, Hx Pyloric Stenosis, Hx Ulcer, Other GI Disorders History: Denies: Hx Acute Renal Failure, Hx Benign Prostatic Hyperplasia, Hx Chronic Renal Failure, Hx Dialysis, Hx Kidney Infection, Hx Kidney Stones, Other Problems/Disorders Musculoskeletal History: Reports: Hx Gout Denies: Hx Arthritis, Hx Bursitis, Hx Tendonitis, Other Musculoskeletal History Sensory History: Denies: Hx Cataracts, Hx Contacts or Glasses, Hx Eye Injury, Hx Eye Prosthesis, Hx Glaucoma, Hx Legally Blind, Hx Macular Degeneration, Hx Vision Problem, Hx Deafness, Hx Hearing Aid, Hx Hearing Problem, Other Sensory Impairments Opthamlomology History: Denies: Hx Cataracts, Hx Contacts or Glasses, Hx Eye Injury, Hx Eye Prosthesis, Hx Glaucoma, Hx Legally Blind, Hx Macular Degeneration, Hx Vision Problem, Other Sensory Impairments Neurological History: Denies: Hx Dementia, Hx Developmental Delay, Hx Headaches, Hx Migraine, Hx Nerve Disease, Hx Seizures, Hx Spinal Cord Injury, Hx Transient Ischemic Attacks (TIA), Other Neuro Impairments/Disorders Psychiatric History: Reports: Hx Anxiety Denies: Hx Attention Deficit Hyperactivity Disorder, Hx Eating Disorder, Hx Depression, Hx Panic Disorder, Hx Post Traumatic Stress Disorder, Hx Inpatient Treatment, Hx Community Mental Health Tx, Hx Schizophrenia, Hx Bipolar Disorder , Hx Suicide Attempt, Hx of Violent Episodes Against Others, Hx Substance Abuse - Cancer History Hx Chemotherapy: No - Surgical History Surgery Procedure, Year, and Place: CHOLECYSTECTOMY MAR 2015 Hx Anesthesia Reactions: No - Immunization History Hx Pertussis Vaccination: No Immunizations Up to Date: Yes Infectious Disease History: No Infectious Disease History: Denies: Hx Hepatitis, Traveled Outside the [place] in Last 30 Days - Family History Known Family History: Positive: Hypertension, Other - Positive for adverse anesthesia reaction - Social History Occupation: Unemployed Lives: With Family Alcohol Use: Rare Hx Substance Use: No Substance Use Type: Reports: None Hx Tobacco Use: No Smoking Status (MU): Never Smoked Tobacco Have You Smoked in the Last Year: No Review of Systems Negative: Fever, Chills, Fatigue, Skin Diaphoresis Negative: Diplopia, Drainage Positive: Sore Throat. Negative: Ear Ache Negative: Palpitations, Chest Pain Positive: Cough. Negative: Shortness Of Breath Negative: Arthralgia, Myalgia Negative: Rash, Bruising All Other Systems Reviewed And Are Negative: Yes Physical Exam Triage Information Reviewed: Yes Vital Signs On Initial Exam: Initial Vitals Temp Pulse Resp BP Pulse Ox 98.8 F 112 19 151/103 97 06/18/19 13:21 06/18/19 13:21 06/18/19 13:21 06/18/19 13:21 06/18/19 13:21 Vital Signs Reviewed: Yes Appearance: Positive: Well-Appearing, Well-Nourished Skin: Positive: Warm, Skin Color Reflects Adequate Perfusion Head/Face: Positive: Normal Head/Face Inspection Eyes: Positive: EOMI, BASSAM, Conjunctiva Clear Neck: Positive: Supple, Nontender, No Lymphadenopathy Respiratory/Lung Sounds: Positive: Clear to Auscultation, Breath Sounds Present Cardiovascular: Positive: RRR, Pulses are Symmetrical in both Upper and Lower Extremities Musculoskeletal: Positive: Normal, Strength/ROM Intact Neurological: Positive: Speech Normal Psychiatric: Positive: Normal, Affect/Mood Appropriate AVPU Assessment: Alert Procedures - Sedation Patient Received Moderate/Deep Sedation with Procedure: No Diagnostics - Vital Signs Vital Signs Temp Pulse Resp BP Pulse Ox 06/18/19 13:21 98.8 F 112 19 151/103 97 - Laboratory Lab Results: Lab Results 06/18/19 06/18/19 Range/Units 13:25 13:25 Influenza A (Rapid) Negative (Negative) Influenza B (Rapid) Negative (Negative) Group A Strep Rapid Negative (Negative) Lab Statement: Any lab studies that have been ordered have been reviewed, and results considered in the medical decision making process. Disposition - Course Course Of Treatment: On physical examination, patient appears well. Nondiaphoretic and nontoxic in appearing. I'll signs are stable. EOMI/PERRLA without conjunctival injection. TMs without erythema bilaterally. Positive cone of light. No pharyngeal erythema or tonsillar exudates. No cervical LAD. Lungs CTA, RRR. A strep and flu swab were obtained on arrival and were both negative. Patient was given Robitussin. She is also encouraged Robitussin, Mucinex as well as vaporub. Pt will be dx with cold like symptoms. - Differential Dx - Cardiopulmonary Differential Diagnoses - Cardiopulmonary: Asthma, Chest Wall Pain, Sinusitis, Other - rhinorhea, cough - Diagnoses Provider Diagnoses: Viral syndrome Discharge ED - Sign-Out/Discharge Documenting (check all that apply): Patient Departure - Discharge Plan Condition: Stable Disposition: HOME Prescriptions: GuaiFENesin DM sugar free [Robitussin DM 100mg/10mg sugar free*] 10 ml PO QID # 1 bottle guaiFENesin ER TAB [Mucinex*] 1,200 mg PO DAILY #10 tab.er Patient Education Materials: Cold Symptoms (ED) Referrals: Patti Garcia MD [Primary Care Provider] - Additional Instructions: Robitussin up to four times daily for cough Vicks Vapor rub for congestion - Billing Disposition and Condition Condition: STABLE Disposition: Home
== END 2019-06-18 15:49 | disposition home or self-care (01) ==
LOC: ED 13:15
DX: B34.9 Viral infection, unspecified (principal); I10 Essential (primary) hypertension
CPT/HCPCS: 87651; 99282; A9270-GY

== ENCOUNTER 2019-06-30 21:54 | Emergency (ER) | payer OTHER ==
--- OUTSIDE RECORDS SUMMARY | 2019-06-30 22:08 | XMS REPORT | Continuity of Care Document ---
:1975 External Reference #:[id number] Author Name Jerel Hampton Care Team Providers Name Role Phone Yoandy Aquino MD - Family Medicine Care Team Information Process Mechanic [phone] Problems Active Problems Provider Date Tendon contracture [...] Date Location Provider Dx Diagnosis Office Visit 04/18/2019 [facility] Alex Iverson M72.2 Plantar fascial 2:15p at [place] fibromatosis M77.41 Metatarsalgia, right foot M67.01 Short Achilles tendon (acquired), right ankle Assessments Date Code Description Provider 04/18/2019 M72.2 Plantar fascial fibromatosis Alex Iverson MD 04/18/2019 M77.41 Metatarsalgia, right foot Alex Iverson MD 04/18/2019 M67.01 Short Achilles tendon (acquired), right ankle Alex Iverson MD Plan of Treatment 04/18/2019 - JULI Vega72.2 Plantar fascial fibromatosisNew Therapy: Physical TherapyFollow up:Follow Up: 6 fbvwlT38.41 Metatarsalgia, right footM67.01 Short Achilles tendon (acquired), right ankle Functional Status Description No Information Available Mental Status Description No Information Available Referrals Description No Information Available
--- OUTSIDE RECORDS SUMMARY | 2019-06-30 22:08 | XMS REPORT | Continuity of Care Document ---
:1975 External Reference #:[id number] Author Name Patti Garcia MD Address [address] [place] [address] Problems Active Problems Provider Date Impaired glucose tolerance Onset: 06/15/2018 Social History Type Date Description Comments Sex Unknown Allergies, Adverse Reactions, Alerts Description No Known Drug Allergies Medications Active Medications SIG Qnty Indications Ordering Provider Date Clonazepam 1/ as needed 5tabs Unknown 12/16/2018 0.5mg Oral Tablets Blood Pressure 1 External; 1units Unknown 12/07/2018 Monitor Talking Icd 10: R03.0 Auto-Inflation Med Cuff Misc Metformin HCL 1 tab oral twice 60tabs Pat Aittama, [facility] 12/07/2018 500mg daily Tablets Montelukast Sodium 1 daily Oral 30tabs Unknown 08/31/2018 10mg Tablets Immunizations CPT Code Status Date Vaccine Lot # [id number] Refused 06/14/2018 Influenza Virus Vaccine, Quadrivalent, Split, [...] Date Facility Test Result H/L Range Note Laboratory test 06/18/2019 [facility] Rapid Strep A Negative Negative [address] [place] [address] [phone] Influenza A & B 06/18/2019 [facility] Flu AB (SEE NOTE) [address] [place] [address] [phone] Influenza A Molecular Negative Negative Influenza B Molecular Negative Negative 3 Urine Culture And 02/27/2019 [facility] Urine Culture SEE RESULT [address] [place] [address] [phone] CFM Urinalysis 02/27/2019 [facility] Urine Specific 1.025 ( )- - [place] Ua PH Test Strip 6.0 Ua WBC neg Ua Protein trace Urine Ketones QL Test Strip neg Urine Bilirubin TTL QL T-Strip neg Urine Nitrite QL TS neg Ua Occult Blood trace Laboratory test 02/05/2019 [facility] Rapid Strep A Negative Negative [address] [place] [address] [phone] Influenza A & B 02/05/2019 [facility] Influenza A NEGATIVE Negative [address] [place] [address] [phone] Influenza B Molecular NEGATIVE Negative 1 Optical Glass Etcher: [id number] Suboptimal collection technique may reduce sensitivity of test. Refer to the [facility] Test Catalog for collection information: [email or web address] Safety As with all diagnostic procedures, the laboratory results obtained should be used in conjunction with other clinical information available to the physician, including confirmation by another method, as applicable. 2 Suboptimal collection technique may reduce sensitivity of test. Refer to the [facility] Test Catalog for collection information: [email or web address] As with all diagnostic procedures, the laboratory results obtained should be used in conjunction with other clinical information available to the physician, including confirmation by another method, as applicable. 3 Optical Glass Etcher: [id number] 4 SEE RESULT BELOW Name: ALIS WEST : [address]: Pat Lundberg NP Acct: [id number] Unit: [id number] AGE: 43 Location: [facility] Re02/27/19 SEX: F Status: REG REF SPEC: [id number] KATINA: 02/27/[address] [facility] [address]: Pat Lundberg NP REQ: [id number] RECD: 02/27/19 STATUS: COMP _ SOURCE: URINE SPDESC: ORDERED: Urine Culture COMMENTS: [id number] Urine Source: Random Procedure Result Reported Site Urine Culture Final 03/01/19- 7372 ML No growth of clinically significant organisms * ML - Main Lab . END OF REPORT DEPARTMENT OF PATHOLOGY, [address] [place] [id number] Layo Reynoso M.D. Director [facility] # [id number] 5 Optical Glass Etcher: [id number] 6 Optical Glass Etcher: [id number] Procedures Description No Information Available Medical Devices Description No Information Available Encounters Type Date Location Provider Dx Diagnosis Office Visit 06/01/2019 11:45a [facility] Main Patti Garcia MD R00.2 Palpitations G47.9 Sleep disorder, unspecified Z13.31 Encounter for screening for depression Office Visit 02/27/2019 3:30p [facility] Main CINDY Sinclair M54.5 Low back pain Z68.41 Body mass index (BMI) 40.0-44.9, adult Assessments Date Code Description Provider 06/01/2019 R00.2 Palpitations Ptati Garcia MD 06/01/2019 G47.9 Sleep disorder, unspecified Patti Garcia MD 06/01/2019 Z13.31 Encounter for screening for depression Patti Garcia MD 02/27/2019 M54.5 Low back pain CINDY Sinclair 02/27/2019 Z68.41 Body mass index (BMI) 40.0-44.9, adult CINDY Sinclair Plan of Treatment Future Appointment(s):08/01/2019 1:30 pm - Yesica Jauregui DO at [facility] Main - Patti Garcia MDR00.2 PalpitationsReferral:Cardiology Miller Apprentice,G47.9 Sleep disorder, unspecifiedReferral:Glenn Deng,Z13.31 Encounter for screening for depression Functional Status Description No Information Available Mental Status Description No Information Available Referrals Refer to Reason for Referral Status Appt Date Cardiology Miller Apprentice Chronic tachycardia, re-establishing with Sent general matcher Glenn Deng Patient with symptoms of hallucinations, paralysis and Sent buzzing in her head after waking up if she naps during the day. Also experiences "buzzing in her head" not her ears across the day. [address] [place] [address] [phone]
[2019-06-30 22:23] LABS: Influenza A Molecular Negative (Negative); Influenza B Molecular Negative (Negative)
[2019-06-30] MEDS ORDERED: GuaiFENesin DM 100 mg/10 mg in 5 ML UDC PO ONE (22:47)
[2019-06-30] MEDS ORDERED: Albuterol 2.5 MG/3 ML NEB.SOL* (0.083%) INH ONE (22:47)
--- NOTE | 2019-06-30 22:47 | ED ---
Respiratory - HPI Summary HPI Summary: This patient is a 44 year old female presenting to [facility] with a chief complaint of cough. She states when she breathes she feels an itching and burning pain in her throat. She states she feels her chest is congested. She states breathing deeply makes her cough worse. She denies fever. - History of Current Complaint Chief Complaint: EDRespiratoryDistress Stated Complaint: THROAT PAIN PER PT Time Seen by Provider: 06/30/19 22:40 Hx Obtained From: Patient Onset/Duration: Lasting Hours Pain Intensity: 8 Character: Cough (Productive) - Allergy/Home Medications Allergies/Adverse Reactions: Allergies Allergy/AdvReac Type Severity Reaction Status Date / Time No Known Allergies Allergy Verified 06/30/19 22:33 Home Medications: Home Medications GuaiFENesin DM sugar free [Robitussin DM 100mg/10mg sugar free*] 10 ml PO QID # 1 bottle 06/18/19 [Rx Confirmed 06/30/19] Albuterol HFA INHALER* [Ventolin HFA Inhaler*] 1 - 2 puff INH Q4H PRN #1 mdi [Rx] PMH/Surg Hx/FS Hx/Imm Hx Endocrine/Hematology History: Denies: Hx Anticoagulant Therapy, Hx Blood Disorders, Hx Diabetes, Hx Thyroid Disease, Hx Anemia, Hx Unexplained Bleeding Cardiovascular History: Reports: Hx Hypertension, Other Cardiovascular Problems/ Disorders - tachycardia Denies: Hx Aneurysm, Hx Angina, Hx Angioplasty, Hx Auto Implanted Cardiovert Defib, Hx Cardiac Arrest, Hx Cardiomegaly, Hx Congenital Heart Disease, Hx Congestive Heart Failure, Hx Coronary Artery Disease, Hx Deep Vein Thrombosis, Hx Embolism, Hx Hypercholesterolemia, Hx Hypotension, Hx Pacemaker/ICD, Hx Peripheral Vascular Disease, Hx Rheumatic Fever, Hx Syncope, Hx Valvular Heart Disease Respiratory History: Reports: Hx Chronic Bronchitis, Hx Pneumonia Denies: Hx Asthma, Hx Pulmonary Edema, Hx Pulmonary Embolism, Hx Sleep Apnea GI History: Denies: Hx Cirrhosis, Hx Crohn's Disease, Hx Gastroesophageal Reflux Disease , Hx Gastrointestinal Bleed, Hx Hiatal Hernia, Hx Irritable Bowel, Hx Jaundice, Hx Ileostomy, Hx Pyloric Stenosis, Hx Ulcer, Other GI Disorders History: Denies: Hx Acute Renal Failure, Hx Benign Prostatic Hyperplasia, Hx Chronic Renal Failure, Hx Dialysis, Hx Kidney Infection, Hx Kidney Stones, Other Problems/Disorders Musculoskeletal History: Reports: Hx Gout Denies: Hx Arthritis, Hx Bursitis, Hx Tendonitis, Other Musculoskeletal History Sensory History: Denies: Hx Cataracts, Hx Contacts or Glasses, Hx Eye Injury, Hx Eye Prosthesis, Hx Glaucoma, Hx Legally Blind, Hx Macular Degeneration, Hx Vision Problem, Hx Deafness, Hx Hearing Aid, Hx Hearing Problem, Other Sensory Impairments Opthamlomology History: Denies: Hx Cataracts, Hx Contacts or Glasses, Hx Eye Injury, Hx Eye Prosthesis, Hx Glaucoma, Hx Legally Blind, Hx Macular Degeneration, Hx Vision Problem, Other Sensory Impairments Neurological History: Denies: Hx Dementia, Hx Developmental Delay, Hx Headaches, Hx Migraine, Hx Nerve Disease, Hx Seizures, Hx Spinal Cord Injury, Hx Transient Ischemic Attacks (TIA), Other Neuro Impairments/Disorders Psychiatric History: Reports: Hx Anxiety Denies: Hx Attention Deficit Hyperactivity Disorder, Hx Eating Disorder, Hx Depression, Hx Panic Disorder, Hx Post Traumatic Stress Disorder, Hx Inpatient Treatment, Hx Community Mental Health Tx, Hx Schizophrenia, Hx Bipolar Disorder , Hx Suicide Attempt, Hx of Violent Episodes Against Others, Hx Substance Abuse - Cancer History Hx Chemotherapy: No - Surgical History Surgery Procedure, Year, and Place: CHOLECYSTECTOMY MAR 2015 Hx Anesthesia Reactions: No Infectious Disease History: No Infectious Disease History: Denies: Hx Hepatitis, Traveled Outside the [place] in Last 30 Days - Family History Known Family History: Positive: Hypertension, Other - Positive for adverse anesthesia reaction - Social History Alcohol Use: Rare Hx Substance Use: No Substance Use Type: Reports: None Hx Tobacco Use: No Smoking Status (MU): Never Smoked Tobacco Have You Smoked in the Last Year: No Review of Systems Positive: Sore Throat Positive: Cough All Other Systems Reviewed And Are Negative: Yes Physical Exam - Summary Physical Exam Summary: Appearance: Well-appearing, Well-nourished, lying in bed comfortably Skin: Warm, dry, no obvious rash Eyes: sclera anicteric, no conjunctival pallor ENT: mucous membranes moist, pharynx appears normal Neck: Supple, nontender Respiratory: Clear to auscultation, no signs of respiratory distress, no wheezing or impairment in aeration, no focal signs of consolidation Cardiovascular: Normal S1, S2. No murmurs. Normal distal pulses in tibial and radial bilaterally. Abdomen: Soft, nontender, normal active bowel sounds present Musculoskeletal: Normal, Strength/ROM Intact Neurological: A&Ox3, awake and alert, mentation is normal, speech is fluent and appropriate Psychiatric: affect is normal, does not appear anxious or depressed Triage Information Reviewed: Yes Vital Signs On Initial Exam: Initial Vitals Temp Pulse Resp BP Pulse Ox 98.7 F 109 18 164/119 98 06/30/19 21:56 06/30/19 21:56 06/30/19 21:56 06/30/19 21:56 06/30/19 21:56 Vital Signs Reviewed: Yes Procedures - Sedation Patient Received Moderate/Deep Sedation with Procedure: No Diagnostics - Vital Signs Vital Signs Temp Pulse Resp BP Pulse Ox 06/30/19 22:36 97.9 F 102 16 162/88 96 06/30/19 21:56 98.7 F 109 18 164/119 98 - Laboratory Lab Results: Lab Results 06/30/19 Range/Units 21:59 Influenza A (Rapid) Negative (Negative) Influenza B (Rapid) Negative (Negative) Result Diagrams: 06/30/19 23:05 06/30/19 23:05 Lab Statement: Any lab studies that have been ordered have been reviewed, and results considered in the medical decision making process. - Radiology CXR Radiology Interpretation Completed By: ED Physician Summary of Radiographic Findings: No acute process. Pending official radiology report. Disposition - Course Course Of Treatment: This patient is a 44 year old female presenting to [facility] with a chief complaint of cough. Physical exam was unremarkable. Labs were unremarkable except 11.2 L, Hct 34 L, MCV 79 L, MCH 26 L, Glucose 217H. Plan for discharge was discussed with the patient and she understands and agrees with this plan. - Diagnoses Provider Diagnoses: Bronchitis, Hyperglycemia Discharge ED - Sign-Out/Discharge Documenting (check all that apply): Patient Departure - Discharge - Discharge Plan Condition: Stable Disposition: HOME Prescriptions: Albuterol HFA INHALER* [Ventolin HFA Inhaler*] 1 - 2 puff INH Q4H PRN #1 mdi PRN Reason: Wheezing Patient Education Materials: Acute Bronchitis (ED) Referrals: Patti Garcia MD [Primary Care Provider] - Additional Instructions: Your blood sugar was 217 tonight, not high enough to require treatment right now but you do need to see your PCP for a more thorough evaluation to see if you are diabetic. You may have a predisposition to diabetes and your blood sugar may be high because of the stress of your current illness. - Billing Disposition and Condition Condition: STABLE Disposition: Home - Attestation Statements Document Initiated by Clarissa: Yes Documenting Scottibdavid: Justice Ramos Provider For Whom Clarissa is Documenting (Include Credential): Tejinder Horne MD Scribdavid Attestation: Justice Rogers, scribed for Tejinder Horne MD on 07/01/19 at 2018. Scribe Documentation Reviewed: Yes Provider Attestation: The documentation as recorded by the Justice grande accurately reflects the service I personally performed and the decisions made by me, Tejinder Horne MD Status of Scrtho Document: Viewed
[2019-06-30 23:16] LABS: ABS Eosinophils 0.1 10^3/ul (0-0.6); ABS Lymphocytes 1.6 10^3/ul (1.0-4.8); ABS Monocytes 0.6 10^3/ul (0-0.8); Eosinophil % 1.9 %; Hematocrit 34 % (35-47); Hemoglobin 11.2 g/dL (12.0-16.0); Lymphocyte % 21.7 %; Mean Corpuscular HGB Conc 34 g/dL (31-36); Mean Corpuscular Hemoglobin 26 pg (27-31); Mean Corpuscular Volume 79 fL (80-97); Mean Platelet Volume 7.6 fL (7.4-10.4); Platelet Count 225 10^3/uL (150-450); Red Blood Count 4.25 10^6 /uL (3.70-4.87); Red Cell Distribution Width 15 % (10-15); White Blood Count 7.4 10^3/uL (3.5-10.8)
[2019-06-30 23:32] LABS: Albumin 4.1 g/dL (3.2-5.2); Albumin/Globulin Ratio 1.6 (1-3); BUN/Creatinine Ratio 19.7 (8-20); Calcium 9.3 mg/dL (8.6-10.3); EGFR African American 128.3 (>60); EGFR Non-African American 106.1 (>60); Globulin 2.6 g/dL (2-4); Potassium 3.6 mmol/L (3.5-5.0); Total Bilirubin 0.2 mg/dL (0.2-1.0); Total Protein 6.7 g/dL (6.4-8.9)
[2019-07-01 00:08] VITALS: BP 157/97
== END 2019-07-01 00:07 | disposition home or self-care (01) ==
LOC: ED 21:54
DX: J40 Bronchitis, not specified as acute or chronic (principal); R73.9 Hyperglycemia, unspecified; R07.0 Pain in throat; I10 Essential (primary) hypertension
CPT/HCPCS: 36415; 71046; 80053; 85025; 99282; A9270-GY

== ENCOUNTER 2020-04-29 15:09 | Observation (INO) ==
[2020-04-29] MEDS ORDERED: NS 0.9% 1000 ml BAG 1,000 ML IV ONE ×3 (19:39→23:24)
[2020-04-29] MEDS ORDERED: Ondansetron 4 mg VIAL 2 MG/ML 2 ml VIAL IV ONE (19:39)
[2020-04-29 21:11] LABS: INR 1.18 (0.82-1.09)
[2020-04-29 21:17] LABS: Influenza A Molecular Negative (Negative); Influenza B Molecular Negative (Negative)
[2020-04-29 21:19] LABS: Albumin 3.9 g/dL (3.2-5.2); Albumin/Globulin Ratio 1.4 (1-3); BUN/Creatinine Ratio 12.3 (8-20); C Reactive Protein 68.34 mg/L (<8.01); EGFR African American 119.3 (>60); EGFR Non-African American 98.6 (>60); Globulin 2.8 g/dL (2-4); Potassium 3.5 mmol/L (3.5-5.0); Total Bilirubin 0.7 mg/dL (0.2-1.0); Total Protein 6.7 g/dL (6.4-8.9)
[2020-04-29 21:47] LABS: ABS Lymphocytes 0.7 10^3/ul (1.0-4.8); ABS Monocytes 0.7 10^3/ul (0-0.8); ABS Neutrophils 13.9 10^3/ul (1.5-7.7); Hematocrit 36 % (35-47); Hemoglobin 11.6 g/dL (12.0-16.0); Lymphocyte % 4.4 %; Mean Corpuscular HGB Conc 33 g/dL (31-36); Mean Corpuscular Hemoglobin 24 pg (27-31); Mean Corpuscular Volume 74 fL (80-97); Mean Platelet Volume 7.9 fL (7.4-10.4); Platelet Count 229 10^3/uL (150-450); Red Blood Count 4.83 10^6 /uL (3.70-4.87); Red Cell Distribution Width 17 % (10-15); White Blood Count 15.2 10^3/uL (3.5-10.8)
[2020-04-29] MEDS ORDERED: Piperacillin/Tazobac ADVAN 3.375 GM in NS 0.9% 100 ml BAG 100 ML IVPB ONE (21:48)
[2020-04-29 21:55] LABS: Microcytosis 1+
[2020-04-29 21:56] LABS: Polychromasia 1+
[2020-04-29 22:31] LABS: Urine Appearance Cloudy; Urine Bilirubin Negative (Negative); Urine Blood Negative (Negative); Urine Color Yellow; Urine Glucose Negative (Negative); Urine Ketones Negative (Negative); Urine Nitrite Negative (Negative); Urine Protein Negative (Negative); Urine Specific Gravity 1.006 (1.010-1.030); Urine Urobilinogen Negative (Negative)
[2020-04-30 00:16] LABS: Magnesium 1.4 mg/dL (1.9-2.7)
[2020-04-30 00:36] LABS: Erythrocyte Sed Rate 14 mm/Hr (0-19)
[2020-04-30] MEDS ORDERED: Magnesium Sulfate IV 3 GM in NS 0.9% 100 ml BAG 100 ML IVPB ONE (01:02)
[2020-04-30 01:37] LABS: Ferritin 11.9 ng/mL (11-307)
[2020-04-30 04:03] LABS: Calcium 7.9 mg/dL (8.6-10.3); Magnesium 1.4 mg/dL (1.9-2.7); Potassium 3.6 mmol/L (3.5-5.0)
[2020-04-30 04:05] LABS: ABS Lymphocytes 0.5 10^3/ul (1.0-4.8); ABS Monocytes 0.7 10^3/ul (0-0.8); ABS Neutrophils 8.4 10^3/ul (1.5-7.7); Eosinophil % 0.1 %; Hematocrit 36 % (35-47); Hemoglobin 11.3 g/dL (12.0-16.0); Lymphocyte % 5.2 %; Mean Corpuscular HGB Conc 32 g/dL (31-36); Mean Corpuscular Hemoglobin 24 pg (27-31); Mean Corpuscular Volume 76 fL (80-97); Mean Platelet Volume 7.7 fL (7.4-10.4); Platelet Count 167 10^3/uL (150-450); Red Blood Count 4.71 10^6 /uL (3.70-4.87); Red Cell Distribution Width 18 % (10-15); White Blood Count 9.6 10^3/uL (3.5-10.8)
[2020-04-30 04:08] LABS: BUN/Creatinine Ratio 12.1 (8-20); EGFR African American 117.2 (>60); EGFR Non-African American 96.8 (>60)
[2020-04-30] MEDS ORDERED: cefTRIAXone 1 gm/50 mL NS BAG 1 GM/50 ML BAG IVPB SCH (06:00)
[2020-04-30] MEDS ORDERED: Dextrose 50% Syringe 50 ml 25 GM/50 ML SYRINGE IV PUSH PRN (07:11)
[2020-04-30] MEDS ORDERED: Enoxaparin 40 MG/0.4 ML SYR SUBCUT SCH (08:00)
[2020-04-30 12:03] VITALS: BP 134/83
[2020-04-30] MEDS ORDERED: Magnesium Sulfate 2 gm BAG 2 GM/50 ML BAG IVPB ONE (13:48)
== END 2020-04-30 17:25 | disposition home or self-care (01) ==
LOC: MED 15:09 → ED 15:09 → MED 04-30 02:12
PROVIDERS: ADMIT Internal Medicine; ATTEND Internal Medicine

== ENCOUNTER 2023-09-04 22:50 | Observation (INO) ==
[2023-09-05] MEDS: Sulfamethox/Trimethoprim DS TAB 800/160 mg PO ONE (00:47)
[2023-09-05] MEDS: Lactated Ringers 1000 ml BAG 1,000 ML IV ONE ×2 (00:47→01:52)
[2023-09-05 01:14] LABS: ABS Eosinophils 0.1 10^3/uL (0.0-0.5); ABS Lymphocytes 1.1 10^3/uL (1.0-4.8); ABS Neutrophils 11.6 10^3/uL (1.5-7.6); ABS Nucleated RBC 0.01 10^3/ul; Eosinophil % 0.6 %; Hematocrit 32.6 % (35-45); Hemoglobin 10.4 g/dL (11.5-14.3); Mean Corpuscular Hgb Conc 31.7 g/dL (31-36); Mean Corpuscular Volume 72.5 fL (80-97); Mean Platelet Volume 8.2 fL (7.5-11.2); Nucleated Red Blood Cells % 0.1 %/100WBC (0.0-0.8); Platelet Count 252 10^3/uL (150-450); Red Cell Distribution Width 19.3 % (12-17); White Blood Count 13.8 10^3/uL (3.8-11.8)
[2023-09-05 01:45] LABS: ALT 11 U/L (7-52); AST 9 U/L (13-39); Albumin 3.9 g/dL (3.2-5.2); Albumin/Globulin Ratio 1.5 (1-3); Alkaline Phosphatase 102 U/L (35-149); Anion Gap 11 mmol/L (2-16); Blood Urea Nitrogen 10 mg/dL (6-24); C Reactive Protein 73.15 mg/L (<8.01); CO2 Carbon Dioxide 24 mmol/L (22-32); Calcium 8.8 mg/dL (8.6-10.3); Chloride 98 mmol/L (101-111); Creatinine, Serum 0.67 mg/dL (0.51-0.95); Globulin 2.6 g/dL (2-4); Glucose 522 mg/dL (70-100); HCG Pregnancy < 0.60 mIU/mL; Potassium 4.1 mmol/L (3.5-5.0); Sodium 133 mmol/L (135-145); Total Bilirubin 0.4 mg/dL (0.2-1.0); Total Protein 6.5 g/dL (6.4-8.9); eGFR CKD-EPI 107.1 (>60)
[2023-09-05] MEDS: cefTRIAXone 2 gm/50 mL D5W 2 GM/50 ML BAG IV ONE (01:52)
[2023-09-05] MEDS ORDERED: Vancomycin 1,750 MG in NS 0.9% 250 ml 250 ML IVPB SCH (02:00)
[2023-09-05] MEDS: Acetaminophen IV 1 GM/100ML 1,000 MG/100 ML BAG IV ONE (02:09)
[2023-09-05 02:26] LABS: Urine Appearance Clear; Urine Bilirubin Negative (Negative); Urine Blood Negative (Negative); Urine Color Colorless; Urine Glucose 4+ (>=1000 mg/dL) (Negative); Urine Ketones Negative (Negative); Urine Nitrite Negative (Negative); Urine Protein Negative (Negative); Urine Specific Gravity 1.032 (1.002-1.030); Urine Urobilinogen Negative (Negative)
[2023-09-05] MEDS: Vancomycin 1,750 MG in NS 0.9% 500 ml BAG 500 ML IVPB ONE (03:17)
[2023-09-05] MEDS: Insulin GLARGINE 100 un/ml 10 ml VIAL SUBCUT ONE ×2 (03:50→03:51)
[2023-09-05] MEDS ORDERED: Vancomycin per Pharmacy 1 EA NOTE FOLLOW UP SCH (04:00)
[2023-09-05] MEDS ORDERED: Dextrose 50% Syringe 50 ml 25 GM/50 ML SYRINGE IV PUSH PRN (05:24)
[2023-09-05 05:53] LABS: ABS Basophils 0.1 10^3/uL (0.0-0.1); ABS Eosinophils 0.1 10^3/uL (0.0-0.5); ABS Lymphocytes 1.9 10^3/uL (1.0-4.8); ABS Monocytes 0.9 10^3/uL (0.0-0.9); ABS Neutrophils 8.8 10^3/uL (1.5-7.6); ABS Nucleated RBC 0.02 10^3/ul; Eosinophil % 0.9 %; Hematocrit 30.5 % (35-45); Hemoglobin 9.9 g/dL (11.5-14.3); Mean Corpuscular Hemoglobin 23.1 pg (27-33); Mean Corpuscular Hgb Conc 32.4 g/dL (31-36); Mean Corpuscular Volume 71.5 fL (80-97); Mean Platelet Volume 7.8 fL (7.5-11.2); Nucleated Red Blood Cells % 0.2 %/100WBC (0.0-0.8); Platelet Count 239 10^3/uL (150-450); Red Blood Count 4.26 10^6/uL (3.63-4.92); White Blood Count 11.8 10^3/uL (3.8-11.8)
[2023-09-05 06:23] LABS: Calcium 8.6 mg/dL (8.6-10.3); Creatinine, Serum 0.5 mg/dL (0.51-0.95); Magnesium 1.7 mg/dL (1.9-2.7); Potassium 3.8 mmol/L (3.5-5.0); eGFR CKD-EPI 114.9 (>60)
[2023-09-05] MEDS ORDERED: Ketorolac 10 mg TAB (NF) PO PRN (09:18)
[2023-09-05] MEDS: Magnesium Sulfate 2 gm BAG 2 GM/50 ML BAG IVPB ONE (09:49)
[2023-09-05] MEDS: Vancomycin 1,750 MG in NS 0.9% 500 ml BAG 500 ML IVPB SCH (14:37)
[2023-09-05] MEDS ORDERED: Vancomycin 1,750 MG in NS 0.9% 500 ml BAG 500 ML IVPB SCH (15:00)
[2023-09-05] MEDS: Potassium Chlor 20 meq TAB.ER PO ONE (17:12)
[2023-09-05] MEDS: CMC:Ketorolac 10 mg TAB (NF) PO PRN (17:33)
[2023-09-05] MEDS: Enoxaparin 40 MG/0.4 ML SYR SUBCUT SCH (20:18)
[2023-09-05] MEDS: Insulin GLARGINE 100 un/ml 10 ml VIAL SUBCUT SCH (20:19)
[2023-09-06 05:29] LABS: ABS Basophils 0.1 10^3/uL (0.0-0.1); ABS Eosinophils 0.1 10^3/uL (0.0-0.5); ABS Lymphocytes 1.4 10^3/uL (1.0-4.8); ABS Monocytes 0.8 10^3/uL (0.0-0.9); Eosinophil % 1.3 %; Hematocrit 30.3 % (35-45); Hemoglobin 9.8 g/dL (11.5-14.3); Lymphocyte % 13.7 %; Mean Corpuscular Hemoglobin 23.1 pg (27-33); Mean Corpuscular Hgb Conc 32.4 g/dL (31-36); Mean Corpuscular Volume 71.4 fL (80-97); Platelet Count 240 10^3/uL (150-450); Red Blood Count 4.25 10^6/uL (3.63-4.92); Red Cell Distribution Width 19.5 % (12-17); White Blood Count 10.4 10^3/uL (3.8-11.8)
[2023-09-06 06:09] LABS: Calcium 8.3 mg/dL (8.6-10.3); Creatinine, Serum 0.51 mg/dL (0.51-0.95); Magnesium 1.8 mg/dL (1.9-2.7); Potassium 4.4 mmol/L (3.5-5.0); eGFR CKD-EPI 114.4 (>60)
[2023-09-06] MEDS ORDERED: Vancomycin Trough Check NOTE FOLLOW UP ONE (14:30)
[2023-09-06 14:31] VITALS: BP 143/84
== END 2023-09-06 14:51 | disposition home or self-care (01) ==
LOC: ED 22:50 → EDHOLD 22:50 → SUATTDRO 09-05 02:19 → SSU 09-05 07:22
PROVIDERS: ADMIT Internal Medicine; ATTEND Internal Medicine